=== PATIENT | male | born 1955 | race Two or more races ===

== ENCOUNTER 2020-08-21 10:44 | Outpatient (REF) | payer MEDICARE, SELFPAY | END 2020-08-21 10:45 | disposition home or self-care (01) | LOC: HO.LAB 10:44 | PROVIDERS: PCP Internal Medicine; Visit Provider Urology | DX: C61 Malignant neoplasm of prostate (principal); Z12.5 Encounter for screening for malignant neoplasm of prostate | CPT/HCPCS: 84153 ==

== ENCOUNTER 2020-09-15 10:41 | Outpatient (REF) | payer MEDICARE, SELFPAY ==
[2020-09-15 14:17] LABS: MANUAL DIFF FLAG NO
[2020-09-15 14:27] LABS: Basophils Percent Auto 0.8 % (0-2); Eosinophils Absolute Auto 0.1 X10*3/uL (0.0-0.4); Eosinophils Percent Auto 1.9 % (0-4); Hematocrit 43.7 % (42-52); Hemoglobin 14.8 g/dl (14.0-18.0); Imm Gran Abs Auto 0.01 X10*3/uL (0.00-0.03); Imm Gran Pct Auto 0.2 % (0.0-0.4); Lymphocytes Absolute Auto 1.5 X10*3/uL (1.2-4.9); Lymphocytes Percent Auto 29.4 % (20-40); Mean Corpuscular HGB Conc 33.9 g/dl (31.0-36.0); Mean Corpuscular Hemoglobin 30.4 pg (27.0-33.0); Mean Corpuscular Volume 89.7 fL (80-98); Mean Platelet Volume 10.8 fL (9.4-12.4); Monocytes Absolute Auto 0.4 X10*3/uL (0.1-1.2); Neutrophils Absolute Auto 3.1 X10*3/uL (2.0-8.3); Neutrophils Percent Auto 59.7 % (45-73); Platelet Count 236 X10*3/uL (160-400); Red Blood Count 4.87 X10*6/uL (4.60-5.80); Red Cell Distribution Width 11.7 % (11.0-16.0); White Blood Count 5.1 X10*3/uL (4.8-10.8)
[2020-09-15 14:47] LABS: Alanine Aminotransferase 24 U/L (0-40); Albumin Level 4.8 g/dL (3.5-5.0); Alkaline Phosphatase 62 U/L (39-117); Anion Gap 13 (12-20); Aspartate Amino Transferase 24 U/L (5-37); Bilirubin Total 0.9 mg/dL (0.0-1.0); Blood Urea Nitrogen 20 mg/dL (9-16); Calcium 9.3 mg/dL (8.4-10.2); Carbon Dioxide 27 mmol/L (22-29); Chloride 103 mmol/L (96-108); Cholesterol 195 mg/dL; Estimated Glomerular Filt Rate > 60; Glucose Random 94 mg/dL (60-115); HDL Cholesterol 41 mg/dL; LDL Cholesterol Calculated 106 mg/dl; Potassium 4.2 mmol/l (3.3-5.1); Sodium 139 mmol/L (135-145); Total Protein 7.5 g/dL (6.5-8.0); Triglycerides 244 mg/dL
[2020-09-15 15:10] LABS: Prostate Specific Antigen 9.01 ng/mL (<0.05-4.0); Thyroid Stimulating Hormone 2.07 uIU/mL (0.32-4.0)
[2020-09-15 15:27] LABS: Folate > 20.0 ng/mL (> or = 4.0); Vitamin B12 617 pg/mL (200-900)
== END 2020-09-15 10:42 | disposition home or self-care (01) ==
LOC: HO.HMGCLDS 10:41
PROVIDERS: PCP Internal Medicine; Visit Provider Internal Medicine
DX: C61 Malignant neoplasm of prostate (principal); E78.00 Pure hypercholesterolemia, unspecified; I10 Essential (primary) hypertension
CPT/HCPCS: 36415; 80053; 80061; 82607; 82746; 84153; 84443; 85025

== ENCOUNTER 2020-11-08 13:06 | Outpatient (REF) | payer MEDICARE, SELFPAY ==
[2020-11-08 14:38] LABS: PSA,Total (Free>4and<10) 10.65 ng/mL (0.00-4.00)
== END 2020-11-08 13:07 | disposition home or self-care (01) ==
LOC: HO.LAB 13:06
PROVIDERS: PCP Internal Medicine; Visit Provider Urology
DX: Z12.5 Encounter for screening for malignant neoplasm of prostate (principal); C61 Malignant neoplasm of prostate
CPT/HCPCS: 36415; 84153

== ENCOUNTER → 2020-11-10 08:46 | Outpatient (BNVA) | payer MEDICARE, SELFPAY | PROVIDERS: Visit Provider Urology | DX: Z13.89 Encounter for screening for other disorder (principal) | CPT/HCPCS: Q3014 ==

== ENCOUNTER 2020-11-16 09:39 | Outpatient (REF) | payer MEDICARE, SELFPAY ==
--- NOTE | 2020-11-16 10:08 | MR_ITS ---
PELVIC/PROSTATE MRI WITH AND WITHOUT CONTRAST AND RECONSTRUCTIONS: Indication: Malignant neoplasm of prostate Multiple routine MRI sequences through the pelvis were obtained on a 1.5 Airam MRI through the pelvis with specific attention being given to the prostate. Pre-and postcontrast images were evaluated. 7.5 cc of Gadavist intravenous contrast was utilized without incident. Diffusion-weighted imaging with apparent diffusion coefficient calculation and dynamic contrast perfusion imaging were performed. The study was reviewed on a dedicated independent workstation and extensively post processed for multi-parametric mapping and analysis. PIRADS 2.0 Criteria was utilized in reporting. Comparison: No pertinent prior studies were available for comparison Findings: The prostate measures 4.8 x 3.4 x 4.4 cm in size for a volume of 36.5 cc. The transitional zone is heterogeneous. The prostate contour is smooth. Any specific regions of interest that were identified were marked on the [employer] as described below: REGION OF INTEREST ONE: Location: Left mid lateral peripheral zone PI RADS category: 3 Dominant sequence:*Diffusion-weighted imaging T2 weighting (Peripheral Zone): Heterogeneous signal intensity, non-circumscribed, moderate hypointensity measuring up to 1.1 cm maximally. PI-RADS category: 3 *Diffusion/ADC mapping: Focal mildly/moderately hypointense on ADC and isointense/mildly hyperintense on high b-value DWI. PI-RADS category: 3 T1-weighting: Minimal heterogeneous signal change. No discrete mass. PI-RADS category: 1 Perfusion/dynamic contrast enhancement: No early enhancement or diffuse enhancement not corresponding to focal finding or focal enhancement corresponding to the lesion demonstrating features of BPH on T2 weighted images. PI-RADS category: Negative Mild heterogeneous signal seen elsewhere in the gland but no other discrete lesions were marked. EXTRAPROSTATIC: Seminal vesicles: Within normal limits and symmetric. Prostate capsule: The capsule appears grossly intact. No suspicious signal in the region of the neurovascular bundle. No disruption to the fascial planes between the prostate and rectum. Regional assessment: There are no enlarged pelvic lymph nodes identified. Marrow/osseous structures: No suspicious marrow signal abnormality. Bladder: Decompressed but otherwise unremarkable. Pelvis: No suspicious pelvic mass or collection. No free pelvic fluid. MR/MR pelvis wo/w con IMPRESSION: There is a small subtle region of mildly decreased T2 signal and mild restricted diffusion within the left mid lateral peripheral zone as described above. This low suspicious abnormal region of interest was marked on the [employer] senior sql [employer]. No evidence for extraprostatic extension. No regional metastases were identified on the study. Overall PI-RADS category: 3 PI-RADS category 1 = clinically significant disease is highly unlikely to be present PI-RADS category 2 = clinically significant cancer unlikely to be present PI-RADS category 3 = clinically significant cancer is equivocal (low suspicion) PI-RADS category 4 = clinically significant cancer is likely to be present (moderate suspicion) PI-RADS category 5 = clinically significant cancer is highly likely to be present (high suspicion)
[2020-11-16 10:25] LABS: Blood Urea Nitrogen 19 mg/dL (9-16); Estimated Glomerular Filt Rate > 60
== END 2020-11-16 09:40 | disposition home or self-care (01) ==
LOC: HO.MRI 09:39
PROVIDERS: Visit Provider Urology
DX: C61 Malignant neoplasm of prostate (principal)
CPT/HCPCS: 36415; 72197; 82565; 84520; A9585

== ENCOUNTER 2021-01-14 09:39 | Outpatient (REF) | payer MEDICARE, SELFPAY ==
[2021-01-14 11:52] LABS: Blood Urea Nitrogen 18 mg/dL (9-16); Estimated Glomerular Filt Rate > 60
== END 2021-01-14 09:40 | disposition home or self-care (01) ==
LOC: HO.HMGCLDS 09:39
PROVIDERS: PCP Internal Medicine; Visit Provider Urology
DX: C61 Malignant neoplasm of prostate (principal)
CPT/HCPCS: 36415; 82565; 84520

== ENCOUNTER → 2021-01-28 14:44 | Outpatient (BNVA) | payer MEDICARE, OTHER, SELFPAY | PROVIDERS: Visit Provider Urology | DX: N40.1 Benign prostatic hyperplasia with lower urinary tract symptoms (principal); N13.8 Other obstructive and reflux uropathy; C61 Malignant neoplasm of prostate | CPT/HCPCS: 99212 ==

== ENCOUNTER 2021-05-26 09:34 | Outpatient (REF) | payer MEDICARE, OTHER, SELFPAY ==
[2021-05-26 10:42] LABS: PSA,Total (Free>4and<10) 3.66 ng/mL (0.00-4.00)
== END 2021-05-26 09:35 | disposition home or self-care (01) ==
LOC: HO.LAB 09:34
PROVIDERS: PCP Internal Medicine; Visit Provider Urology
DX: Z12.5 Encounter for screening for malignant neoplasm of prostate (principal); C61 Malignant neoplasm of prostate
CPT/HCPCS: 36415; 84153

== ENCOUNTER → 2021-06-02 15:07 | Outpatient (BNVA) | payer MEDICARE, OTHER, SELFPAY | PROVIDERS: PCP Internal Medicine; Visit Provider Urology | CPT/HCPCS: Q3014 ==

== ENCOUNTER 2021-07-26 11:53 | Emergency (ER) | payer MEDICARE, SELFPAY ==
--- NOTE | ~2021-07-26 | XR_ITS ---
EXAMINATION: LEFT CLAVICLE AND LEFT SHOULDER. CLINICAL INFORMATION: Left shoulder injury. COMPARISON: None TECHNIQUE: Left clavicle 2 views. Left shoulder 4 views. FINDINGS: Left clavicle: There is no visible fracture or bony abnormality seen. The AC joint is intact. Left shoulder: There is no visible acute fracture, dislocation or subluxation. No bony erosive changes. The soft tissues are normal. XR/XR shoulder LT min 2V IMPRESSION: Unremarkable left shoulder and left clavicle exam.
--- NOTE | ~2021-07-26 | XR_ITS ---
EXAMINATION: LEFT CLAVICLE AND LEFT SHOULDER. CLINICAL INFORMATION: Left shoulder injury. COMPARISON: None TECHNIQUE: Left clavicle 2 views. Left shoulder 4 views. FINDINGS: Left clavicle: There is no visible fracture or bony abnormality seen. The AC joint is intact. Left shoulder: There is no visible acute fracture, dislocation or subluxation. No bony erosive changes. The soft tissues are normal. XR/XR clavicle LT IMPRESSION: Unremarkable left shoulder and left clavicle exam.
[2021-07-26 12:51] VITALS: BP 179/99; PULSE 100; RESP 18; TEMP 36.7; O2SAT 95; BMI 25.8
--- NOTE | 2021-07-26 13:45 | ED.EXTPRO ---
HPI - Extremity Problem General Chief complaint: Extremity Injury, Upper Stated complaint: lt shoulder pain Time Seen by Provider: 07/26/21 13:41 Source: patient Mode of arrival: ambulatory Limitations: no limitations History of Present Illness HPI Narrative: 66-year-old male here with complaints of left shoulder pain for 2 weeks. 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 No previous injury to the shoulder. No radiation of pain. No numbness, tingling, fevers, chills or redness. Using Tylenol home with continued pain Related Data Previous Rx's Medication Instructions Recorded amlodipine 5 mg tablet 5 mg PO DAILY #90 cap 05/20/21 cholecalciferol (vitamin D3) 25 25 mcg PO DAILY 90 Days #90 cap 05/20/21 mcg (1,000 unit) capsule cyanocobalamin (vitamin B-12) 1,000 mcg PO DAILY #90 cap 05/20/21 1,000 mcg capsule fenofibrate 160 mg tablet 160 mg PO DAILY #90 tab 05/20/21 finasteride 5 mg tablet 5 mg PO DAILY 90 Days #90 tab 05/20/21 folic acid 1 mg tablet 1 mg PO DAILY #90 tab 05/20/21 lisinopril 40 mg tablet 40 mg PO DAILY 90 Days #90 tab 05/20/21 omega-3 fatty acids-fish oil 300 1 cap PO DAILY 90 Days #90 cap 06/13/21 mg-1,000 mg capsule erythromycin 5 mg/gram (0.5 %) eye 0.5 inch OPHTHALMIC (EYE) TID #1 g 07/14/21 ointment cyclobenzaprine 10 mg tablet 10 mg PO TID PRN #10 tab 07/26/21 lidocaine 5 % topical patch 1 patch TOPICAL DAILY #15 ea 07/26/21 (Lidoderm) naproxen 500 mg tablet 500 mg PO BID PRN #20 tab 07/26/21 Allergies Allergy/AdvReac Type Severity Reaction Status Date / Time No Known Allergies Allergy Verified 07/26/21 12:51 Review of Systems Review of Systems: Yes all other systems are reviewed and are negative Constitutional: Constitutional: Reports no additional constitutional complaints, Denies body ache(s), Denies chills, Denies fever(s), Denies headache(s) and Denies weakness Eyes: Eyes: Reports no additional eye complaints and Denies change in vision ENT: Reports system reviewed and no additional complaints, except as documented, Denies dizziness, Denies headache(s), Denies nasal congestion, Denies nasal discharge and Denies neck pain Cardiovascular: Cardiovascular: Reports no additional cardiovascular complaints, Denies chest pain, Denies leg edema and Denies dyspnea Respiratory: Respiratory: Reports no additional respiratory complaints, Denies cough and Denies dyspnea Gastrointestinal: Gastrointestinal: Reports no additional gastrointestinal complaints, Denies abdominal pain, Denies diarrhea, Denies nausea and Denies vomiting Genitourinary: Genitourinary: Denies urinary incontinence Musculoskeletal: Musculoskeletal: Reports no additional musculoskeletal complaints, Denies back pain, Reports arthralgias, Denies joint swelling, Reports limited range of motion, Denies neck pain, Denies numbness and Denies tingling Integumentary/Breasts: Skin/Breast: Reports system reviewed and no additional complaints, except as docu and Denies rash Neurologic: Reports system reviewed and no additional complaints, except as documented, Denies Abnormal speech present, Denies dizziness, Denies headache(s), Denies numbness, Denies tingling and Denies weakness PMF Past Medical History Attestation statement: The following information was validated with the patient. Source: old records reviewed and nursing notes reviewed Medical History Alcohol abuse Anxiety Hypercholesterolemia Hypertension Impaired glucose tolerance Insomnia Overweight (BMI 25.0-29.9) Prostate cancer Vitamin B12 deficiency Vitamin D deficiency Surgical History History of prostate biopsy Family History Family History Father No problems noted. 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 Physical Exam Vital Signs: Vital Signs: Last Vital Signs Temp 98.1 F 07/26/21 12:51 Pulse 100 07/26/21 12:51 Resp 18 07/26/21 12:51 BP 179/99 H 07/26/21 12:51 Pulse Ox 95 07/26/21 12:51 Body Mass Index 25.8 Const: General: cooperative, healthy appearing, comfortable and no acute distress Orientation/consciousness: patient oriented x3 Limitations: no limitations HENMT: Head: Yes normal to inspection Ears: hearing grossly normal bilaterally General nose exam: Normal external nose present Face and sinus: Yes normal facial exam Mouth: Normal oral and palatal mucosa present Throat: Yes posterior oropharynx normal Eyes: General: appearance normal, both eyes and all related structures Pupils: Equal, round and reactive pupils present Neck: Neck: Yes normal visual inspection Chest: Chest palpation & inspection: normal inspection of the chest Resp: Effort & Inspection: normal respiratory effort Auscultation: clear to auscultation bilaterally Cardio: Rate: regular rate Rhythm: regular rhythm Peripheral pulses: Peripheral pulses 2+ throughout GI: Inspection: Yes normal to inspection Palpation (GI): Soft to palpation and nontender Auscultation: normal bowel sounds Back/Spine/Pelvis: Thoracic/Lumbar Spine: thoracic and lumbar spine normal to inspection Skin: General skin exam: no rashes or lesions noted Neuro: General: patient oriented x3, no focal motor deficits and normal sensation to monofilament Cranial nerves: Yes Equal, round and reactive pupils present Cognition (Neuro): normal cognition Speech: No Abnormal speech present Gait exam (Neuro): Normal gait present Motor exam (neuro): 5/5 motor strength present throughout Extrem: Other: Tenderness over the proximal humerus on the left arm. Pain is worsened with abduction. And movement of the head to the right. Palpable muscle spasm over the trapezius General: Yes normal to inspection Course Course Course Narrative: 66-year-old male with left shoulder pain after lifting something heavy 2 weeks ago. Will check x-rays 1430-x-ray show no bony abnormality. Likely strain. Reviewed worrisome signs and symptoms of when to return to the emergency department. Comfortable discharge home. MDM - Extremity (Nontraumatic) Medical Records Attestation: I reviewed the patient's medical records. Lab Data Attestation: I reviewed the patient's lab results. Imaging Data left shoulder/clavicle xray: Attestation: I personally reviewed and interpreted this imaging study as follows: Radiologist's impression: FINDINGS: Left clavicle: There is no visible fracture or bony abnormality seen. The AC joint is intact. Left shoulder: There is no visible acute fracture, dislocation or subluxation. No bony erosive changes. The soft tissues are normal. XR/XR shoulder LT min 2V IMPRESSION: Unremarkable left shoulder and left clavicle exam.? Discharge Plan Discharge Clinical Impression: Left shoulder strain Patient Disposition: Home, Self-Care Instructions: Muscle Strain (ED), Rotator Cuff Injury Exercises (DC) Additional Instructions: Heat to the area Gentle stretching Follow-up with your PCP as discussed Prescriptions: New cyclobenzaprine 10 mg tablet 10 mg PO TID PRN (Reason: muscle spasm) Qty: 10 RF: 0 naproxen 500 mg tablet 500 mg PO BID PRN (Reason: pain) Qty: 20 RF: 0 lidocaine [Lidoderm] 5 % adhesive patch,medicated 1 patch topical DAILY Qty: 15 RF: 0 No Action amlodipine 5 mg tablet 5 mg PO DAILY Qty: 90 RF: 2 cholecalciferol (vitamin D3) 25 mcg (1,000 unit) capsule 25 mcg PO DAILY 90 Days Qty: 90 RF: 1 cyanocobalamin (vitamin B-12) 1,000 mcg capsule 1,000 mcg PO DAILY Qty: 90 RF: 3 fenofibrate 160 mg tablet 160 mg PO DAILY Qty: 90 RF: 3 finasteride 5 mg tablet 5 mg PO DAILY 90 Days Qty: 90 RF: 1 folic acid 1 mg tablet 1 mg PO DAILY Qty: 90 RF: 1 lisinopril 40 mg tablet 40 mg PO DAILY 90 Days Qty: 90 RF: 1 omega-3 fatty acids-fish oil 300-1,000 mg capsule 1 cap PO DAILY 90 Days Qty: 90 RF: 3 erythromycin 5 mg/gram (0.5 %) ointment 0.5 inch ophthalmic (eye) TID Qty: 1 RF: 0 Referrals: Po,Radha Amos MD [Primary Care Provider] - 2 days Interventions: ED Discharge Assessment Last Done: 07/26/21 14:37 Discharge Date/Time: 07/26/21 14:38 Print Language: Irish
== END 2021-07-26 14:38 | disposition home or self-care (01) ==
PROVIDERS: Emergency Provider Emergency Medicine; PCP Internal Medicine
DX: S46.912A Strain of unspecified muscle, fascia and tendon at shoulder and upper arm level, left arm, initial encounter (principal); M25.512 Pain in left shoulder; X50.0XXA Overexertion from strenuous movement or load, initial encounter; X50.9XXA Other and unspecified overexertion or strenuous movements or postures, initial encounter; Y93.9 Activity, unspecified; Y92.9 Unspecified place or not applicable; Y99.9 Unspecified external cause status; Z79.899 Other long term (current) drug therapy
CPT/HCPCS: 73000; 73030; 99283

== ENCOUNTER 2021-08-31 09:52 | Outpatient (REF) | payer MEDICARE, OTHER, SELFPAY ==
[2021-08-31 10:15] LABS: MANUAL DIFF FLAG NO
[2021-08-31 10:23] LABS: Basophils Absolute Auto 0.1 X10*3/uL (0.0-0.2); Basophils Percent Auto 0.9 % (0-2); Eosinophils Absolute Auto 0.2 X10*3/uL (0.0-0.4); Eosinophils Percent Auto 2.9 % (0-4); Hematocrit 42.6 % (42.0-52.0); Hemoglobin 14.4 g/dl (14.0-18.0); Imm Gran Abs Auto 0.02 X10*3/uL (0.00-0.03); Imm Gran Pct Auto 0.4 % (0.0-0.4); Lymphocytes Absolute Auto 1.4 X10*3/uL (1.2-4.9); Lymphocytes Percent Auto 25.7 % (20-40); Mean Corpuscular HGB Conc 33.8 g/dl (31.0-36.0); Mean Corpuscular Hemoglobin 29.8 pg (27.0-33.0); Mean Corpuscular Volume 88.2 fL (80.0-98.0); Mean Platelet Volume 10.1 fL (9.4-12.4); Monocytes Absolute Auto 0.4 X10*3/uL (0.1-1.2); Neutrophils Absolute Auto 3.4 x10*3/uL (2.0-8.3); Neutrophils Percent Auto 62.1 % (45-73); Platelet Count 249 X10*3/uL (160-400); Red Blood Count 4.83 X10*6/uL (4.60-5.80); Red Cell Distribution Width 11.8 % (11.0-16.0); White Blood Count 5.5 X10*3/uL (4.8-10.8)
[2021-08-31 10:52] LABS: Alanine Aminotransferase 21 U/L (0-40); Albumin Level 4.5 g/dL (3.5-5.0); Alkaline Phosphatase 67 U/L (39-117); Anion Gap 12 (12-20); Aspartate Amino Transferase 18 U/L (5-37); Bilirubin Total 0.7 mg/dL (0.0-1.0); Blood Urea Nitrogen 14 mg/dL (9-16); Calcium 9.6 mg/dL (8.4-10.2); Carbon Dioxide 27 mmol/L (22-29); Chloride 105 mmol/L (96-108); Cholesterol 176 mg/dL; Estimated Glomerular Filt Rate > 60; Glucose Random 105 mg/dL (60-115); HDL Cholesterol 37 mg/dL; LDL Cholesterol Calculated 112 mg/dl; Potassium 4.2 mmol/L (3.3-5.1); Sodium 140 mmol/L (135-145); Triglycerides 137 mg/dL
[2021-08-31 11:13] LABS: Free T4 (Free Thyroxine) 0.93 ng/dL (0.71-1.85); Prostate Specific Antigen Scr 3.01 ng/mL (<0.05-4.0); Thyroid Stimulating Hormone 1.71 uIU/mL (0.32-4.0)
[2021-08-31 11:50] LABS: Estimated Average Glucose 111 mg/dL; Hemoglobin A1c % 5.5 %
[2021-08-31 12:09] LABS: Folate > 20.0 ng/mL (> or = 4.0); Vitamin B12 664 pg/mL (200-900)
== END 2021-08-31 09:53 | disposition home or self-care (01) ==
LOC: HO.LAB 09:52
PROVIDERS: PCP Internal Medicine; Visit Provider Internal Medicine
DX: E78.00 Pure hypercholesterolemia, unspecified (principal); E53.8 Deficiency of other specified B group vitamins; I10 Essential (primary) hypertension; R73.02 Impaired glucose tolerance (oral)
CPT/HCPCS: 36415; 80053; 80061; 82607; 82746; 83036; 84153; 84439; 84443; 85025

== ENCOUNTER → 2021-09-13 13:55 | Outpatient (BNVA) | payer MEDICARE, OTHER, SELFPAY | PROVIDERS: PCP Internal Medicine; Visit Provider Physician Assistant | DX: M54.12 Radiculopathy, cervical region (principal); I10 Essential (primary) hypertension; E78.00 Pure hypercholesterolemia, unspecified; E53.8 Deficiency of other specified B group vitamins; E55.9 Vitamin D deficiency, unspecified; Z83.3 Family history of diabetes mellitus | CPT/HCPCS: 99202 ==

== ENCOUNTER 2021-09-28 10:17 | Outpatient (REF) | payer MEDICARE, OTHER, SELFPAY ==
[2021-09-28 11:27] LABS: Prostate Specific Antigen 2.99 ng/mL (<0.05-4.0)
== END 2021-09-28 10:18 | disposition home or self-care (01) ==
LOC: HO.LAB 10:17
PROVIDERS: PCP Internal Medicine; Visit Provider Urology
DX: Z12.5 Encounter for screening for malignant neoplasm of prostate (principal); C61 Malignant neoplasm of prostate
CPT/HCPCS: 36415; 84153

== ENCOUNTER → 2021-10-04 12:25 | Outpatient (BNVA) | payer MEDICARE, OTHER, SELFPAY | PROVIDERS: PCP Internal Medicine; Visit Provider Urology | DX: N40.1 Benign prostatic hyperplasia with lower urinary tract symptoms (principal); N13.8 Other obstructive and reflux uropathy; C61 Malignant neoplasm of prostate | CPT/HCPCS: Q3014 ==

== ENCOUNTER 2022-02-04 09:40 | Outpatient (REF) | payer MEDICARE, OTHER, SELFPAY ==
[2022-02-04 10:41] LABS: Prostate Specific Antigen 3.83 ng/mL (<0.05-4.0)
== END 2022-02-04 09:41 | disposition home or self-care (01) ==
LOC: HO.LAB 09:40
PROVIDERS: PCP Internal Medicine; Visit Provider Urology
DX: Z12.5 Encounter for screening for malignant neoplasm of prostate (principal); C61 Malignant neoplasm of prostate
CPT/HCPCS: 36415; 84153

== ENCOUNTER → 2022-02-15 13:05 | Outpatient (BNVA) | payer MEDICARE, OTHER, SELFPAY | PROVIDERS: PCP Internal Medicine; Visit Provider Urology | DX: C61 Malignant neoplasm of prostate (principal) | CPT/HCPCS: Q3014 ==

== ENCOUNTER → 2022-02-24 09:25 | Outpatient (REF) | payer MEDICARE, OTHER, SELFPAY ==
--- NOTE | 2022-02-24 09:29 | ECG_ITS ---
Test Reason : Z01.818 Blood Pressure : / mmHG Vent. Rate : 072 BPM Atrial Rate : 072 BPM P-R Int : 178 ms QRS Dur : 148 ms QT Int : 396 ms P-R-T Axes : 061 054 009 degrees QTc Int : 433 ms Normal sinus rhythm Right bundle branch block Abnormal ECG When compared with ECG of 02-NOV-2001 09:52, Premature ventricular complexes are no longer Present Right bundle branch block is now Present Referred By: Radha Stoll Electronically Signed By:ACACIA HUGHES MD
[2022-02-24 10:48] LABS: Anion Gap 11 (12-20); Blood Urea Nitrogen 16 mg/dL (9-16); Calcium 9.7 mg/dL (8.4-10.2); Carbon Dioxide 26 mmol/L (22-29); Chloride 105 mmol/L (96-108); Estimated Glomerular Filt Rate > 60; Glucose Random 103 mg/dL (60-115); Potassium 4.2 mmol/L (3.3-5.1); Sodium 138 mmol/L (135-145)
== END ==
LOC: HO.CARD 09:25
PROVIDERS: PCP Internal Medicine; Visit Provider Internal Medicine
DX: Z01.818 Encounter for other preprocedural examination (principal)
CPT/HCPCS: 36415; 80048; 93005

== ENCOUNTER 2022-03-22 10:44 | Outpatient (REF) | payer MEDICARE, OTHER, SELFPAY ==
[2022-03-22 11:13] LABS: COVID-19 Test Positive (Negative)
== END 2022-03-22 10:45 | disposition home or self-care (01) ==
LOC: HO.LAB 10:44
PROVIDERS: Visit Provider Internal Medicine
DX: Z20.822 Contact with and (suspected) exposure to COVID-19 (principal)
CPT/HCPCS: 87635; C9803

== ENCOUNTER 2022-06-09 10:51 | Outpatient (REF) | payer MEDICARE, OTHER, SELFPAY ==
[2022-06-09 12:58] LABS: PSA,Total (Free>4and<10) 3.67 ng/mL (0.00-4.00)
== END 2022-06-09 10:52 | disposition home or self-care (01) ==
LOC: HO.LAB 10:51
PROVIDERS: PCP Internal Medicine; Visit Provider Urology
DX: Z13.89 Encounter for screening for other disorder (principal)
CPT/HCPCS: 36415; 84153

== ENCOUNTER → 2022-06-20 12:55 | Outpatient (BNVA) | payer MEDICARE, OTHER, SELFPAY | PROVIDERS: Visit Provider Urology | DX: N40.1 Benign prostatic hyperplasia with lower urinary tract symptoms (principal); N13.8 Other obstructive and reflux uropathy; C61 Malignant neoplasm of prostate | CPT/HCPCS: 51798; 99212 ==

== ENCOUNTER 2022-08-17 09:24 | Observation (INO) | payer MEDICARE, SELFPAY ==
--- NOTE | ~2022-08-17 | CT_ITS ---
EXAMINATION: CT ABDOMEN AND PELVIS WITHOUT CONTRAST CLINICAL INFORMATION: Right-sided flank pain COMPARISON: None TECHNIQUE: Multidetector volumetric imaging was performed from the superior aspect of the liver through the pubic symphysis. Sagittal and coronal reformatted images were obtained on the technologist's workstation. This CT examination was performed using dose optimization techniques as appropriate, variously including the following: *Automated exposure control *Adjustment of mA and/or kV according to patient size (this includes techniques or standardized protocols for targeted exams where dose is matched to indication/reason for exam; i.e. extremities or head) *Use of iterative reconstruction technique DLP: 402 mGy-cm FINDINGS: LUNG BASES: The visualized lung bases are unremarkable. LIVER, GALLBLADDER, AND BILIARY TREE: The liver is normal in size, shape, and attenuation. No focal hepatic lesion or biliary ductal dilatation is present. The gallbladder is unremarkable with no evidence of radiopaque gallstones, gallbladder wall thickening, or obvious pericholecystic inflammatory changes. PANCREAS: Unremarkable. SPLEEN: Unremarkable. ADRENAL GLANDS: Unremarkable. KIDNEYS AND URETERS: The kidneys are normal in size, shape, and attenuation. No hydronephrosis, hydroureter, or calculi seen. No perinephric stranding. BLADDER: Unremarkable. GASTROINTESTINAL TRACT: The stomach is unremarkable. Normal caliber of the small bowel. There is no obstruction. The appendix is abnormal. The appendix is dilated measuring 1.2 cm. Fluid-filled appearance. No significant inflammation of the fat. The remainder of the colon is unremarkable. No wall thickening. No free air or free fluid. ABDOMINAL WALL: No significant hernia is appreciated. LYMPH NODES: Normal. VASCULAR: Normal caliber aorta with mild atherosclerotic calcification. PELVIC VISCERA: The prostate and seminal vesicles are unremarkable. OSSEOUS STRUCTURES: No acute or suspicious osseous abnormality. Mild degenerative change throughout the spine. CT/CT abdomen pelvis wo IV con IMPRESSION: 1. Abnormal appearance of the appendix. The appendix is dilated and fluid-filled. No significant inflammation of the adjacent fat. This could represent early appendicitis. 2. No hydronephrosis or nephrolithiasis. Fleischner guidelines were followed.
--- NOTE | ~2022-08-17 | XR_ITS ---
EXAMINATION: XR CHEST CLINICAL INFORMATION: Back pain COMPARISON: 09/26/2010 TECHNIQUE: 2 views of the chest were obtained. FINDINGS: The lungs are well expanded. There is no focal consolidation, edema, or effusion. No pneumothorax. The cardiomediastinal silhouette is within normal limits. No acute osseous abnormality. XR/XR chest 2V IMPRESSION: Clear lungs.
[2022-08-17 10:09] VITALS: BP 172/85; PULSE 72; RESP 18; TEMP 36.9; O2SAT 98; BMI 26.6
--- NOTE | 2022-08-17 10:41 | ED.GENADULT ---
HPI - General Adult General Chief complaint: Back Pain/Injury Stated complaint: Low Abd Pain Time Seen by Provider: 08/17/22 10:41 Source: patient, family () and critical care educator Mode of arrival: ambulatory Limitations: language barrier History of Present Illness HPI narrative: Patient is a 67 year old assigned male at with a history of HTN presenting to the emergency department today with right sided abdominal pain and back pain. Patient states that he woke up this morning and had sharp back pain that radiated into his abdomen and stayed there. Patient denies any dizziness, lightheadedness, nausea, vomiting, fever, chills, blurry vision, double vision, loss of vision, chest pain, difficulty breathing, shortness of breath, back pain, night sweats, pain with urination, increased urinary frequency, increased urinary urgency, blood in his urine or stool, syncope or a near syncopal episode, recent trauma or falls, bowel incontinence, bladder incontinence, bowel retention, bladder retention, or any other complaints at this time. Onset (ago): hour(s) Location: back and abdomen Severity: moderate Severity scale (1-10): 4 Pain Consistency: constant Relieving factors: none Exacerbating factors: none Associated symptoms: denies other symptoms Treatments prior to arrival: none Related Data Home Medications Medication Instructions Recorded Confirmed cyanocobalamin (vitamin B-12) 1,000 mcg PO DAILY 10/04/21 06/20/22 1,000 mcg tablet ketorolac 0.5 % eye drops 0 drp ophthalmic (eye) 02/15/22 06/20/22 Previous Rx's Medication Instructions Recorded fenofibrate 160 mg tablet 160 mg PO DAILY #90 tabs 05/20/21 omega-3 fatty acids-fish oil 300 1 cap PO DAILY 90 days #90 caps 06/13/21 mg-1,000 mg capsule lidocaine 5 % topical patch 1 patch topical DAILY #15 ea 07/26/21 (Lidoderm) cholecalciferol (vitamin D3) 25 25 mcg PO DAILY 90 days #90 caps 01/05/22 mcg (1,000 unit) capsule folic acid 1 mg tablet 1 mg PO DAILY #90 tabs 01/05/22 lisinopril 40 mg tablet 40 mg PO DAILY 90 days #90 tabs 01/05/22 amlodipine 5 mg tablet 5 mg PO DAILY #90 caps 03/27/22 finasteride 5 mg tablet 5 mg PO DAILY 90 days #90 tabs 08/10/22 Allergies Allergy/AdvReac Type Severity Reaction Status Date / Time No Known Allergies Allergy Verified 06/20/22 08:16 Review of Systems Constitutional: Constitutional: Reports no additional constitutional complaints, Denies chills, Denies fever(s) and Denies night sweats Eyes: Eyes: Reports no additional eye complaints, Denies blurry vision, Denies change in vision, Denies diplopia, Denies eye discharge, Denies loss of vision and Denies eye pain ENT: Denies dizziness Cardiovascular: Cardiovascular: Reports no additional cardiovascular complaints, Denies chest pain, Denies lightheadedness, Denies Loss of Consciousness and Denies dyspnea Respiratory: Respiratory: Reports no additional respiratory complaints and Denies dyspnea Gastrointestinal: Gastrointestinal: Reports no additional gastrointestinal complaints, Reports abdominal pain, Denies melena, Denies hematochezia, Denies change in bowel habits and Denies change in stool character Genitourinary: Genitourinary: Reports no additional male genitourinary complaints, Denies hematuria, Denies oliguria, Denies difficulty urinating, Denies dysuria, Denies urinary frequency, Denies urinary hesitancy, Denies urinary incontinence and Denies urinary urgency Musculoskeletal: Musculoskeletal: Reports no additional musculoskeletal complaints, Reports back pain, Denies numbness and Denies tingling Neurologic: Denies dizziness, Denies loss of vision, Denies numbness and Denies tingling Psychiatric: Psychiatric: Reports no additional psychiatric complaints Endocrine: Endocrine: Reports no additional endocrine complaints Hematologic/Lymphatic: Hematologic/Lymphatic: Reports no additional hematologic/lymphatic complaints Allergic/Immunologic: Allergic/Immunologic: Reports no additional allergic/immunologic complaints [facility] Past Medical History Attestation statement: The following information was validated with the patient. Source: old records reviewed Medical History Alcohol abuse Anxiety Hypercholesterolemia Hypertension Impaired glucose tolerance Insomnia Overweight (BMI 25.0-29.9) Prostate cancer Vitamin B12 deficiency Vitamin D deficiency Surgical History History of prostate biopsy Family History Family History Father No problems noted. 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 Cognitive needs: No Hearing needs: No Vision needs: No Physical Exam ED Vital Signs: Vital Signs - 24 hr 08/17/22 10:09 08/17/22 14:53 Temperature 98.4 F 98.4 F Pulse Rate 72 61 Respiratory Rate 18 16 Blood Pressure 172/85 H 161/79 H Pulse Oximetry 98 97 Oxygen Delivery Method Room Air Room Air BMI result Body Mass Index 26.6 Const General: cooperative, no acute distress, alert and awake Nutritional Appearance: well nourished Orientation/consciousness: patient oriented x3 Limitations: no limitations HENMT Head: Yes normal to inspection and Yes atraumatic Ears: hearing grossly normal bilaterally and external ears normal General nose exam: Normal external nose present, no nasal discharge noted and no epistaxis Face and sinus: Yes normal facial exam, No abrasion and No laceration Mouth: Normal oral and palatal mucosa present, no drooling and no muffled voice Eyes General: appearance normal, both eyes and all related structures Periorbital: periorbital findings normal Eyelids: Yes eyelids normal Conjunctivae: conjunctivae normal Pupils: Equal, round and reactive pupils present EOM: EOMs intact bilaterally Neck Neck: Yes normal visual inspection, Yes full ROM and Yes no lymphadenopathy Chest Chest palpation & inspection: normal inspection of the chest Resp Effort & Inspection: normal respiratory effort and able to speak in complete sentences Auscultation: clear to auscultation bilaterally Cardio Rate: regular rate Rhythm: regular rhythm GI Inspection: Yes normal to inspection Palpation (GI): Soft to palpation, not firm, Tenderness to palpation present (GI) in the RLQ, no guarding and not rigid Neuro General: patient oriented x3 and moves all extremities Cranial nerves: Yes Equal, round and reactive pupils present Cognition (Neuro): normal cognition Motor exam (neuro): 5/5 motor strength present throughout Sensory Exam: Normal double simultaneous stimulation for sensation Coordination: [id number] test normal Extrem General: Yes normal to inspection, Yes full ROM and Yes capillary refill normal Psych Appearance: grossly normal Mental Status: mental status grossly normal Affect: normal affect Attitude: cooperative Thought process: Normal thought process present Thought content: Normal thought content present Insight: Good insight present (Psych) Medical Decision Making MDM Narrative Medical decision making narrative: Patient is a 67 year old assigned male at with a history of HTN presenting to the emergency department today with right lower quadrant abdominal pain. Patient's physical exam showed RLQ abdominal pain. Patient's blood work showed an increase in neurophil % but was otherwise unremarkable. Patient's abdominal CT showed an early appendicitis. I explained my physical exam findings as well as all test results to the patient and the patient's . I answered all questions asked by the patient and the patient's . I spoke to the surgeon marketing professional who recommended the patient get a dose of IV ABX and remain NPO for probable surgery this evening. Patient and the patient's verbalized agreement and understanding with this treatment plan and surgical admission. Medical Records Medical records reviewed: Yes I reviewed the patient's medical records. Lab Data Lab results reviewed: Yes I reviewed the patient's lab results. Result diagrams: 08/17/22 11:38 08/17/22 11:38 Labs: Lab Results 08/17/22 08/17/22 08/17/22 Range/Units 11:38 11:38 11:38 WBC 6.1 (4.8-10.8) X10*3/uL RBC 5.07 (4.60-5.80) X10*6/uL Hgb 15.2 (14.0-18.0) g/dl Hct 44.8 (42.0-52.0) % MCV 88.4 (80.0-98.0) fL MCH 30.0 (27.0-33.0) pg MCHC 33.9 (31.0-36.0) g/dl RDW 11.8 (11.0-16.0) % Plt Count 215 (160-400) X10*3/uL MPV 9.4 (9.4-12.4) fL Immature Gran % (Auto) 0.3 (0.0-0.4) % Neut % (Auto) 74.9 H (45-73) % Lymph % (Auto) 16.6 L (20-40) % [place] % (Auto) 6.7 (2-11) % Eos % (Auto) 0.7 (0-4) % Baso % (Auto) 0.8 (0-2) % Lymph # (Auto) 1.0 L (1.2-4.9) X10*3/uL [place] # (Auto) 0.4 (0.1-1.2) X10*3/uL Eos # (Auto) 0.0 (0.0-0.4) X10*3/uL Baso # (Auto) 0.1 (0.0-0.2) X10*3/uL Abs Immat Gran (auto) 0.02 (0.00-0.03) X10*3/uL Absolute Neuts (auto) 4.6 (2.0-8.3) x10*3/uL Absolute Nucleated RBC 0.000 (0.0-0.012) X10*3/uL Nucleated RBC % (auto) 0.0 (0.0-0.2) /100WBC Sodium 139 (135-145) mmol/L Potassium 5.0 (3.3-5.1) mmol/L Chloride 103 (96-108) mmol/L Carbon Dioxide 26 (22-29) mmol/L Anion Gap 15 (12-20) BUN 16 (9-16) mg/dL Creatinine 0.84 (0.5-1.4) mg/dL Estim Creat Clear Calc 77.5 Estimated GFR > 60 Random Glucose 102 (60-115) mg/dL Calcium 10.0 (8.4-10.2) mg/dL Magnesium 2.0 (1.6-2.6) mg/dL Total Bilirubin 0.6 (0.0-1.0) mg/dL AST 21 (5-37) U/L ALT 20 (0-40) U/L Alkaline Phosphatase 67 (39-117) U/L Troponin I High Sens < 3.5 (<3.5-35.0) ng/L Total Protein 7.4 (6.5-8.0) g/dL Albumin 4.7 (3.5-5.0) g/dL Urine Color Urine Appearance Urine pH (5.0-9.0) Ur Specific [place] (1.005-1.025) Urine Protein (Neg-Trace) mg/dL Urine Glucose (UA) (Negative) mg/dL Urine Ketones (Negative) mg/dL Urine Blood (Negative) Urine Nitrite (Negative) Ur Leukocyte Esterase (Negative) 08/17/22 Range/Units 15:01 WBC (4.8-10.8) X10*3/uL RBC (4.60-5.80) X10*6/uL Hgb (14.0-18.0) g/dl Hct (42.0-52.0) % MCV (80.0-98.0) fL MCH (27.0-33.0) pg MCHC (31.0-36.0) g/dl RDW (11.0-16.0) % Plt Count (160-400) X10*3/uL MPV (9.4-12.4) fL Immature Gran % (Auto) (0.0-0.4) % Neut % (Auto) (45-73) % Lymph % (Auto) (20-40) % [place] % (Auto) (2-11) % Eos % (Auto) (0-4) % Baso % (Auto) (0-2) % Lymph # (Auto) (1.2-4.9) X10*3/uL [place] # (Auto) (0.1-1.2) X10*3/uL Eos # (Auto) (0.0-0.4) X10*3/uL Baso # (Auto) (0.0-0.2) X10*3/uL Abs Immat Gran (auto) (0.00-0.03) X10*3/uL Absolute Neuts (auto) (2.0-8.3) x10*3/uL Absolute Nucleated RBC (0.0-0.012) X10*3/uL Nucleated RBC % (auto) (0.0-0.2) /100WBC Sodium (135-145) mmol/L Potassium (3.3-5.1) mmol/L Chloride (96-108) mmol/L Carbon Dioxide (22-29) mmol/L Anion Gap (12-20) BUN (9-16) mg/dL Creatinine (0.5-1.4) mg/dL Estim Creat Clear Calc Estimated GFR Random Glucose (60-115) mg/dL Calcium (8.4-10.2) mg/dL Magnesium (1.6-2.6) mg/dL Total Bilirubin (0.0-1.0) mg/dL AST (5-37) U/L ALT (0-40) U/L Alkaline Phosphatase (39-117) U/L Troponin I High Sens (<3.5-35.0) ng/L Total Protein (6.5-8.0) g/dL Albumin (3.5-5.0) g/dL Urine Color Yellow Urine Appearance Clear Urine pH 8.0 (5.0-9.0) Ur Specific [place] 1.010 (1.005-1.025) Urine Protein Negative (Neg-Trace) mg/dL Urine Glucose (UA) Negative (Negative) mg/dL Urine Ketones Negative (Negative) mg/dL Urine Blood Negative (Negative) Urine Nitrite Negative (Negative) Ur Leukocyte Esterase Negative (Negative) Imaging Data CT scan - abdomen: Attestation: I personally reviewed and interpreted this imaging study as follows: My impression: Possible appendicits. Radiologist's impression: EXAMINATION: CT ABDOMEN AND PELVIS WITHOUT CONTRAST? CLINICAL INFORMATION: Right-sided flank pain? COMPARISON: None? TECHNIQUE: Multidetector volumetric imaging was performed from the superior aspect of the liver through the pubic symphysis. Sagittal and coronal reformatted images were obtained on the technologist's workstation.? This CT examination was performed using dose optimization techniques as appropriate, variously including the following: *Automated exposure control *Adjustment of mA and/or kV according to patient size (this includes techniques or standardized protocols for targeted exams where dose is matched to indication/reason for exam; i.e. extremities or head) *Use of iterative reconstruction technique DLP: 402 mGy-cm FINDINGS: LUNG BASES: The visualized lung bases are unremarkable.? LIVER, GALLBLADDER, AND BILIARY TREE: The liver is normal in size, shape, and attenuation. No focal hepatic lesion or biliary ductal dilatation is present. The gallbladder is unremarkable with no evidence of radiopaque gallstones, gallbladder wall thickening, or obvious pericholecystic inflammatory changes.? PANCREAS: Unremarkable.? SPLEEN: Unremarkable.? ADRENAL GLANDS: Unremarkable.? KIDNEYS AND URETERS: The kidneys are normal in size, shape, and attenuation. No hydronephrosis, hydroureter, or calculi seen. No perinephric stranding. ? BLADDER: Unremarkable.? GASTROINTESTINAL TRACT: The stomach is unremarkable. Normal caliber of the small bowel. There is no obstruction. The appendix is abnormal. The appendix is dilated measuring 1.2 cm. Fluid-filled appearance. No significant inflammation of the fat. The remainder of the colon is unremarkable. No wall thickening. No free air or free fluid.? ABDOMINAL WALL: No significant hernia is appreciated.? LYMPH NODES: Normal. VASCULAR: Normal caliber aorta with mild atherosclerotic calcification. PELVIC VISCERA: The prostate and seminal vesicles are unremarkable.? OSSEOUS STRUCTURES: No acute or suspicious osseous abnormality. Mild degenerative change throughout the spine.? CT/CT abdomen pelvis wo IV con IMPRESSION: 1.? Abnormal appearance of the appendix. The appendix is dilated and fluid-filled. No significant inflammation of the adjacent fat. This could represent early appendicitis. 2.? No hydronephrosis or nephrolithiasis. ? Fleischner guidelines were followed. Dictated By: Wali Reynoso MD Signed By: Electronically signed by Wali Reynoso MD 08/17/22 1138 Chest x-ray: Attestation: I personally reviewed and interpreted this imaging study as follows: My impression: No acute process. Radiologist's impression: EXAMINATION: XR CHEST CLINICAL INFORMATION: Back pain COMPARISON: 09/26/2010 TECHNIQUE: 2 views of the chest were obtained. FINDINGS: The lungs are well expanded. There is no focal consolidation, edema, or effusion. No pneumothorax. The cardiomediastinal silhouette is within normal limits. No acute osseous abnormality. XR/XR chest 2V IMPRESSION: Clear lungs. Dictated By: Wali Reynoso MD Signed By: Electronically signed by Wali Reynoso MD 08/17/22 1120 Discharge Plan Discharge Clinical Impression: Appendicitis Patient Disposition: Still a Patient Prescriptions: No Action fenofibrate 160 mg tablet 160 mg PO DAILY Qty: 90 3RF omega-3 fatty acids-fish oil 300-1,000 mg capsule 1 cap PO DAILY 90 Days Qty: 90 3RF folic acid 1 mg tablet 1 mg PO DAILY Qty: 90 1RF cholecalciferol (vitamin D3) 25 mcg (1,000 unit) capsule 25 mcg PO DAILY 90 Days Qty: 90 1RF lisinopril 40 mg tablet 40 mg PO DAILY 90 Days Qty: 90 1RF amlodipine 5 mg tablet 5 mg PO DAILY Qty: 90 2RF finasteride 5 mg tablet 5 mg PO DAILY 90 Days Qty: 90 2RF lidocaine [Lidoderm] 5 % adhesive patch,medicated 1 patch topical DAILY Qty: 15 0RF Rx Instructions: leave on most painful area for up to 12 hrs cyanocobalamin (vitamin B-12) 1,000 mcg tablet 1,000 mcg PO DAILY ketorolac 0.5 % drops 0 drp ophthalmic (eye)
--- NOTE | 2022-08-17 10:44 | ECG_ITS ---
Test Reason : Back pain Blood Pressure : / mmHG Vent. Rate : 071 BPM Atrial Rate : 071 BPM P-R Int : 178 ms QRS Dur : 148 ms QT Int : 404 ms P-R-T Axes : 042 068 008 degrees QTc Int : 439 ms Normal sinus rhythm Right bundle branch block Abnormal ECG When compared with ECG of 24-FEB-2022 09:33, No significant change was found Referred By: Marlen Oshea Electronically Signed By:RENITA HODGES MD
[2022-08-17 11:44] LABS: MANUAL DIFF FLAG NO
[2022-08-17 11:50] LABS: Basophils Absolute Auto 0.1 X10*3/uL (0.0-0.2); Basophils Percent Auto 0.8 % (0-2); Eosinophils Percent Auto 0.7 % (0-4); Hematocrit 44.8 % (42.0-52.0); Hemoglobin 15.2 g/dl (14.0-18.0); Imm Gran Abs Auto 0.02 X10*3/uL (0.00-0.03); Imm Gran Pct Auto 0.3 % (0.0-0.4); Lymphocytes Percent Auto 16.6 % (20-40); Mean Corpuscular HGB Conc 33.9 g/dl (31.0-36.0); Mean Corpuscular Volume 88.4 fL (80.0-98.0); Mean Platelet Volume 9.4 fL (9.4-12.4); Monocytes Absolute Auto 0.4 X10*3/uL (0.1-1.2); Monocytes Percent Auto 6.7 % (2-11); Neutrophils Absolute Auto 4.6 x10*3/uL (2.0-8.3); Neutrophils Percent Auto 74.9 % (45-73); Platelet Count 215 X10*3/uL (160-400); Red Blood Count 5.07 X10*6/uL (4.60-5.80); Red Cell Distribution Width 11.8 % (11.0-16.0); White Blood Count 6.1 X10*3/uL (4.8-10.8)
[2022-08-17 12:06] LABS: Troponin-I High Sensitivity < 3.5 ng/L (<3.5-35.0)
[2022-08-17 12:11] LABS: Alanine Aminotransferase 20 U/L (0-40); Albumin Level 4.7 g/dL (3.5-5.0); Alkaline Phosphatase 67 U/L (39-117); Anion Gap 15 (12-20); Aspartate Amino Transferase 21 U/L (5-37); Bilirubin Total 0.6 mg/dL (0.0-1.0); Blood Urea Nitrogen 16 mg/dL (9-16); Carbon Dioxide 26 mmol/L (22-29); Chloride 103 mmol/L (96-108); Creatinine Clr Calc Pharmacy 77.5; Estimated Glomerular Filt Rate > 60; Glucose Random 102 mg/dL (60-115); Sodium 139 mmol/L (135-145); Total Protein 7.4 g/dL (6.5-8.0)
[2022-08-17 14:53] VITALS: BP 161/79; PULSE 61; RESP 16; TEMP 36.9; O2SAT 97
[2022-08-17 15:08] LABS: Appearance Urine Clear; Color Urine Yellow; Glucose Urine UA Negative (Negative); Leukocyte Esterase Urine Negative (Negative); Nitrite Urine Negative (Negative); Urine Blood Negative (Negative); Urine Ketones Negative (Negative); Urine Protein Negative (Neg-Trace)
--- NOTE | 2022-08-17 17:17 | PC.NURSE ---
Pt resting comfortably, waiting for surgeon to assess pt
[2022-08-17 18:24] VITALS: BP 148/84; PULSE 66; RESP 18; O2SAT 96
[2022-08-17] MEDS: Piperacillin Sodium/Tazobactam 3.375 GM in 0.9 % Sodium Chloride 50 ML IV (18:27)
[2022-08-17] MEDS: 0.9 % Sodium Chloride 1,000 ML 100 ML IVCONT (19:18)
--- NOTE | 2022-08-17 21:01 | PHA.MEDREC ---
Pharmacy Consult ? Medication Reconciliation Pharmacy has completed the medication reconciliation. sPOKE WITH PATIENT IN ED.
--- NOTE | 2022-08-17 21:43 | PM.HPGS ---
History of Present Illness History of Present Illness Date of Service: 08/17/22 Chief complaint: Low Abd Pain Narrative: Nicolas Diego is a 67 year old male who woke up this morning with back pain radiating to left nd right side. has had back pain before but not sure if this is the same. no issues with nausea or vomiting no trouble or changes in bowel movements. no fever or chills. hre in ER his wbc is normal but CT scan shows distended fluid filled appendix with no inflamatory changes around. currently pt says he is hungry no pain. feels more discomfort in his back Review of Systems Constitutional: Constitutional: Reports as per [facility] Past Medical History Medical History Alcohol abuse Anxiety Hypercholesterolemia Hypertension Impaired glucose tolerance Insomnia Overweight (BMI 25.0-29.9) Prostate cancer Vitamin B12 deficiency Vitamin D deficiency Family History Family History Father No problems noted. 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 Cognitive needs: No Hearing needs: No Vision needs: No Meds Allergies Allergy/AdvReac Type Severity Reaction Status Date / Time No Known Allergies Allergy Verified 06/20/22 08:16 Active Medications: Current Medications Acetaminophen (Acetaminophen 325 Mg Tablet) 650 mg PO Q6H PRN PRN Reason: Pain, Mild (Pain Scale 1-3) Sodium Chloride (Ns) 1,000 mls @ 100 mls/hr IVCONT .Q10H TICO Last Admin: 08/17/22 19:18 Dose: 100 mls/hr Piperacillin Sod/Tazobactam (Sod 3.375 gm/ Sodium Chloride) 50 mls @ 100 mls/hr IV Q6H TICO Morphine Sulfate (Morphine Sulfate 4 Mg/Ml Cartridge) 3 mg IVPUSH Q4H PRN; Protocol PRN Reason: Pain, Severe (Pain Scale 7-10) Ondansetron HCl (Ondansetron Hcl 4 Mg/2 Ml Vial) 4 mg IVPUSH Q8H PRN PRN Reason: Nausea Sodium Chloride (0.9 % Sodium Chloride Flush 3 Ml Syringe) 3 ml IVFLUSH QSHIFT [facility] Home Medications Medication Instructions Recorded Confirmed Last Taken Type cyanocobalamin (vitamin B-12) 1,000 mcg PO DAILY 10/04/21 08/17/22 08/16/22 History 1,000 mcg tablet Physical Exam Vital Signs: Vital Signs: Last Vital Signs Temp 98.4 F 08/17/22 14:53 Pulse 66 08/17/22 18:24 Resp 18 08/17/22 18:24 BP 148/84 H 08/17/22 18:24 Pulse Ox 96 08/17/22 18:24 O2 Del Method 08/17/22 18:24 BMI result Body Mass Index 26.6 Const: General: cooperative, healthy appearing and no acute distress Orientation/consciousness: patient oriented x3 HEENT: Head: Yes normal to inspection Eyes: General: appearance normal, both eyes and all related structures Resp: Effort & Inspection: normal respiratory effort Auscultation: clear to auscultation bilaterally Cardio: Rate: regular rate Rhythm: regular rhythm GI: Other: soft no tenderness to very deep palpation no guarding no rebound active normal sounds no cva tenderness tender to midline back area and off to each side a bit Skin: General skin exam: no rashes or lesions noted Neuro: General: patient oriented x3 Extrem: General: Yes normal to inspection Psych: Appearance: grossly normal Results Results Labs: Short CBC 08/17/22 Range/Units 11:38 WBC 6.1 (4.8-10.8) X10*3/uL Hgb 15.2 (14.0-18.0) g/dl Hct 44.8 (42.0-52.0) % Plt Count 215 (160-400) X10*3/uL BMP 08/17/22 11:38 Sodium 139 Potassium 5.0 Chloride 103 Carbon Dioxide 26 BUN 16 Creatinine 0.84 Calcium 10.0 Liver Function 08/17/22 Range/Units 11:38 Total Bilirubin 0.6 (0.0-1.0) mg/dL AST 21 (5-37) U/L ALT 20 (0-40) U/L Alkaline Phosphatase 67 (39-117) U/L Albumin 4.7 (3.5-5.0) g/dL Urine 08/17/22 Range/Units 15:01 Urine Color Yellow Urine Appearance Clear Urine pH 8.0 (5.0-9.0) Ur Specific [place] 1.010 (1.005-1.025) Urine Protein Negative (Neg-Trace) mg/dL Urine Glucose (UA) Negative (Negative) mg/dL Abdomen CT scan report/results: report reviewed and image reviewed CT scan - pelvis: report reviewed and image reviewed Assessment and Plan (1) Appendicitis: Status: Acute Plan 67 year old male with back pain ? abdo pain - normal wbc no fever or chills, ct scan showing abnormal fluid filled distended appendix a little retrocecal towards the back psoas muscle-? this is why more pain to back. plan to trial conservative antibx treatment and reevaluate in am can feed tonight and then npo after midninght iv zosyn labs and physical exam in am Quality Stroke Does the patient have a stroke diagnosis?: No VTE Prior VTE?: No VTE Risk Level:: Surgical - low VTE Device Contraindication: N/A - Device Ordered VTE Drug Contraindication: N/A - Med Ordered Procedures Date of Service Date of Service: 08/17/22
[2022-08-18 01:09] VITALS: BP 161/90; PULSE 66; RESP 14; O2SAT 94
[2022-08-18] MEDS: Piperacillin Sodium/Tazobactam 3.375 GM in 0.9 % Sodium Chloride 50 ML IV ×2 (01:37→08:36)
[2022-08-18] MEDS: Acetaminophen 325 MG TABLET 650 MG PO (01:37)
[2022-08-18] MEDS: 0.9 % Sodium Chloride 1,000 ML 100 ML IVCONT (05:40)
[2022-08-18 06:28] LABS: MANUAL DIFF FLAG NO
[2022-08-18 06:33] LABS: Basophils Percent Auto 0.7 % (0-2); Eosinophils Absolute Auto 0.1 X10*3/uL (0.0-0.4); Eosinophils Percent Auto 1.2 % (0-4); Hematocrit 40.8 % (42.0-52.0); Imm Gran Abs Auto 0.04 X10*3/uL (0.00-0.03); Imm Gran Pct Auto 0.7 % (0.0-0.4); Lymphocytes Absolute Auto 1.4 X10*3/uL (1.2-4.9); Lymphocytes Percent Auto 24.2 % (20-40); Mean Corpuscular HGB Conc 34.3 g/dl (31.0-36.0); Mean Corpuscular Hemoglobin 30.1 pg (27.0-33.0); Mean Corpuscular Volume 87.7 fL (80.0-98.0); Mean Platelet Volume 9.6 fL (9.4-12.4); Monocytes Absolute Auto 0.5 X10*3/uL (0.1-1.2); Monocytes Percent Auto 8.6 % (2-11); Neutrophils Absolute Auto 3.7 x10*3/uL (2.0-8.3); Neutrophils Percent Auto 64.6 % (45-73); Platelet Count 210 X10*3/uL (160-400); Red Blood Count 4.65 X10*6/uL (4.60-5.80); Red Cell Distribution Width 11.8 % (11.0-16.0); White Blood Count 5.7 X10*3/uL (4.8-10.8)
[2022-08-18 07:50] VITALS: BP 159/75; PULSE 56; RESP 14; O2SAT 98
--- NOTE | 2022-08-18 07:58 | PC.NURSE ---
pt requesting to go home at this time. Dr. Kathy wang connected r/t plan
--- NOTE | 2022-08-18 08:11 | PM.PNGS ---
Subjective Subjective Date of Service: 08/18/22 Interval history: Complains mainly of back pain in the lumbar sacral region. Denies abdominal pain. Reports feeling hungry and denies nausea or vomiting. Physical Exam Vital Signs: Vital Signs: Last Vital Signs Temp 98.4 F 08/17/22 14:53 Pulse 56 08/18/22 07:50 Resp 14 08/18/22 07:50 BP 159/75 H 08/18/22 07:50 Pulse Ox 98 08/18/22 07:50 O2 Del Method 08/18/22 07:50 BMI result Body Mass Index 26.6 Const: General: healthy appearing and comfortable Nutritional Appearance: well nourished Orientation/consciousness: patient oriented x3 Limitations: no limitations Resp: Effort & Inspection: normal respiratory effort GI: Other: Soft, nondistended, nontender, no rebound, guarding, or rigidity. Rectal Exam - Male: Yes deferred Neuro: General: patient oriented x3 Extrem: Other: No edema Objective Data Active Medications Acetaminophen (Acetaminophen 325 Mg Tablet) 650 mg PO Q6H PRN PRN Reason: Pain, Mild (Pain Scale 1-3) Last Admin: 08/18/22 01:37 Dose: 650 mg Documented By: NAV Sodium Chloride (Ns) 1,000 mls @ 100 mls/hr IVCONT .Q10H [facility] Last Admin: 08/18/22 05:40 Dose: 100 mls/hr Documented By: NAV Piperacillin Sod/Tazobactam (Sod 3.375 gm/ Sodium Chloride) 50 mls @ 100 mls/hr IV Q6H [facility] Morphine Sulfate (Morphine Sulfate 4 Mg/Ml Cartridge) 3 mg IVPUSH Q4H PRN; Protocol PRN Reason: Pain, Severe (Pain Scale 7-10) Ondansetron HCl (Ondansetron Hcl 4 Mg/2 Ml Vial) 4 mg IVPUSH Q8H PRN PRN Reason: Nausea Sodium Chloride (0.9 % Sodium Chloride Flush 3 Ml Syringe) 3 ml IVFLUSH QSHIFT [facility] Last Admin: 08/18/22 01:37 Dose: Not Given Documented By: NAV Non-Admin Reason: IV Running Labs CBC & Chem 7: 08/18/22 06:21 08/17/22 11:38 Labs: Laboratory Results - last 24 hr 1108/17/22 08/17/22 11:38 11:38 11:38 MCV 88.4 MCH 30.0 MCHC 33.9 RDW 11.8 Plt Count 215 MPV 9.4 Immature Gran % (Auto) 0.3 Neut % (Auto) 74.9 H Lymph % (Auto) 16.6 L [place] % (Auto) 6.7 Eos % (Auto) 0.7 Baso % (Auto) 0.8 Lymph # (Auto) 1.0 L [place] # (Auto) 0.4 Eos # (Auto) 0.0 Baso # (Auto) 0.1 Abs Immat Gran (auto) 0.02 Absolute Neuts (auto) 4.6 Absolute Nucleated RBC 0.000 Nucleated RBC % (auto) 0.0 Anion Gap 15 Estim Creat Clear Calc 77.5 Estimated GFR > 60 Random Glucose 102 Calcium 10.0 Magnesium 2.0 Total Bilirubin 0.6 AST 21 ALT 20 Alkaline Phosphatase 67 Troponin I High Sens < 3.5 Total Protein 7.4 Albumin 4.7 Urine Color Urine Appearance Urine pH Ur Specific [place] Urine Protein Urine Glucose (UA) Urine Ketones Urine Blood Urine Nitrite Ur Leukocyte Esterase 08/17/22 08/18/22 15:01 06:21 MCV 87.7 MCH 30.1 MCHC 34.3 RDW 11.8 Plt Count 210 MPV 9.6 Immature Gran % (Auto) 0.7 H Neut % (Auto) 64.6 Lymph % (Auto) 24.2 [place] % (Auto) 8.6 Eos % (Auto) 1.2 Baso % (Auto) 0.7 Lymph # (Auto) 1.4 [place] # (Auto) 0.5 Eos # (Auto) 0.1 Baso # (Auto) 0.0 Abs Immat Gran (auto) 0.04 H Absolute Neuts (auto) 3.7 Absolute Nucleated RBC 0.000 Nucleated RBC % (auto) 0.0 Anion Gap Estim Creat Clear Calc Estimated GFR Random Glucose Calcium Magnesium Total Bilirubin AST ALT Alkaline Phosphatase Troponin I High Sens Total Protein Albumin Urine Color Yellow Urine Appearance Clear Urine pH 8.0 Ur Specific [place] 1.010 Urine Protein Negative Urine Glucose (UA) Negative Urine Ketones Negative Urine Blood Negative Urine Nitrite Negative Ur Leukocyte Esterase Negative Procedures Date of Service Date of Service: 08/18/22 Progress Note: A&P Assessment and plan (1) Appendicitis: Status: Acute Plan patient found to have a very mild/ early appendicitis by CT but by history and examination is asymptomatic. WBC is normal this morning. Examination today reveals abdomen to be soft and nontender, without peritoneal signs. Place patient on regular diet. This is well tolerated patient will be discharged home on oral antibiotics. Back pain seems to be unrelated to the appendix. Time Spent With Patient Time: Total time spent is greater than 50% in coordination of care (as documented) at patient's floor/unit and/or counseling patient: Quality Stroke Does the patient have a stroke diagnosis?: No VTE Prior VTE?: No VTE Risk Level:: Surgical - low VTE Device Contraindication: N/A - Device Ordered VTE Drug Contraindication: N/A - Med Ordered
[2022-08-18 08:16] LABS: Anion Gap 15 (12-20); Blood Urea Nitrogen 18 mg/dL (9-16); Calcium 9.1 mg/dL (8.4-10.2); Carbon Dioxide 23 mmol/L (22-29); Chloride 106 mmol/L (96-108); Creatinine Clr Calc Pharmacy 75.7; Estimated Glomerular Filt Rate > 60; Glucose Random 97 mg/dL (60-115); Potassium 4.4 mmol/L (3.3-5.1); Sodium 140 mmol/L (135-145)
--- NOTE | 2022-08-21 10:21 | P.DS_ITS ---
DS: Providers Provider Date of Service: 08/18/22 Date of admission: 08/17/22 19:02 Primary care physician: Radha Stoll MD Attending physician on admission: Madelyn Chavez Consults: 08/17/22 17:36 Consult to General Surgery Stat Consulting Provider: Madelyn Chavez Reason for consultation: appendicitis Has provider been notified: Yes Attending physician on discharge: Stephen Garcia DS: Diagnosis Discharge Diagnosis (1) Appendicitis: Status: Acute DS: Summary Hospital Course Hospital Course: BRIEF HPI: Nicolas Diego is a 67 year old male who woke up this morning with back pain radiating to left and right side. Has had back pain before but not sure if this is the same. No issues with nausea or vomiting no trouble or changes in bowel movements. No fever or chills. His wbc is normal but CT scan shows distended fluid filled appendix, no inflammatory changes around. currently pt says he is hungry no pain. Feels more discomfort in his back. HOSPITAL COURSE: He was admitted to the surgical service for observation and further treatment of the possible early acute appendicitis. He was started on IV zosyn. The following day he denied abd pain and had only very mild back pain remaining. His WBC remained normal.?By history and examination he was asymptomatic but CT suggested early appendicitis and there it was decided to treat conservatively with antibiotics, transition to PO if tolerating solid diet.?His back pain seemed to be unrelated to the appendix. He was advanced to a regular diet.?He was reassessed later in the day and was tolerating the diet without any recurrent symptoms. He was discharged to home on a 10 day course of PO Augmentin with follow up in the office with Dr. Garcia. Status at Discharge Functional status at discharge: independent ambulation Overall status at discharge: patient is back to baseline Time Spent with Patient Time attestation: Total time spent providing and/or coordinating discharge services: Discharge coordination time: Greater than 30 minutes Quality: Safe Use of Opioids Does Pt have an Active Cancer Diagnosis on the Problem List?: No Quality: Stroke Does the patient have a stroke diagnosis?: No Physical Exam Vital Signs: Vital Signs: Last Vital Signs Temp 98.4 F 08/17/22 14:53 Pulse 56 08/18/22 07:50 Resp 14 08/18/22 07:50 BP 159/75 H 08/18/22 07:50 Pulse Ox 98 08/18/22 07:50 O2 Del Method 08/18/22 07:50 BMI result Body Mass Index 26.6 Const: General: comfortable, no acute distress and alert Orientation/consci ousness: patient oriented x3 Resp: Effort & Inspection: normal respiratory effort GI: Inspection: No distended Palpation (GI): Soft to palpation and nontender Back/Spine/Pelvis: Back: No back tenderness Skin: General skin exam: no rashes or lesions noted Neuro: General: patient oriented x3 Discharge Plan Discharge Patient Disposition: Home, Self-Care Discharge Diagnosis: appendicitis Referrals: Stephen Garcia MD [Physician] - 2 weeks Po,Radha Amos MD [Primary Care Provider] - Discharge Medications: New amoxicillin-pot clavulanate [Augmentin] 500-125 mg tablet 1 tab PO BID Qty: 20 0RF Continued omega-3 fatty acids-fish oil 300-1,000 mg capsule 1 cap PO DAILY 90 Days Qty: 90 3RF cholecalciferol (vitamin D3) 25 mcg (1,000 unit) capsule 25 mcg PO DAILY 90 Days Qty: 90 1RF amlodipine 5 mg tablet 5 mg PO DAILY Qty: 90 2RF finasteride 5 mg tablet 5 mg PO DAILY 90 Days Qty: 90 2RF folic acid 1 mg tablet 1 mg PO DAILY Qty: 90 1RF lisinopril 40 mg tablet 40 mg PO DAILY 90 Days Qty: 90 1RF cyanocobalamin (vitamin B-12) 1,000 mcg tablet 1,000 mcg PO DAILY Discharge Orders: Discharge Order (Routine); Ordered 08/18/22 Ordered By: Stephen Garcia Diet: Advance to usual diet Activity on Discharge: As tolerated Activity Restrictions/Additional Instructions: You likely have early acute appendicitis. This will be treated with oral antibiotics. Your back pain is likely unrelated to the appendicitis and you should see your PCP regarding this. Call Your Doctor If: ? ? -Your temperature exceeds 101.5? F? ? ? -You experience excessive pain or swelling ? ? -You have an unexpected reaction to medication ? ? -You experience continued vomiting/nausea Care Plan Goals: Return to baseline health and gradual return to activity. Health Concerns: Appendicitis Plan of Treatment: PO antibiotics F/u in office Assessment: Improved Discharge Date/Time: 08/18/22 17:48
== END 2022-08-18 17:48 | disposition home or self-care (01) ==
LOC: HO.ED 08-18 11:21 → HO.EDOVER 08-18 13:36
PROVIDERS: Physician Assistant Medical; Admitting Provider Surgery; Emergency Provider Emergency Medicine; PCP Internal Medicine; Visit Provider Surgery
DX: K35.80 Unspecified acute appendicitis (principal); M54.50 Low back pain, unspecified; R10.9 Unspecified abdominal pain; R11.2 Nausea with vomiting, unspecified; R07.89 Other chest pain; Z79.899 Other long term (current) drug therapy
CPT/HCPCS: 36415; 71046; 74176; 80048; 80053; 81003; 83735; 84484; 85025; 93005; 96361; 96374; 96375; 96376; 99219; 99285; J2543

== ENCOUNTER 2022-08-21 14:57 | Outpatient (REF) | payer MEDICARE, SELFPAY ==
--- NOTE | ~2022-08-21 | XR_ITS ---
EXAMINATION: XR LUMBOSACRAL SPINE CLINICAL INFORMATION: Lower back pain. COMPARISON: None TECHNIQUE: AP and lateral views of the lumbar spine and lateral view of the lumbosacral junction. FINDINGS: Vertebral body heights are normal. There is a mild lumbar dextroscoliosis, with rotatory component. The lumbar disc spaces are relatively well-maintained. No acute fracture or spondylolisthesis is seen. There is multi-level lower thoracic and lumbar spondylosis. The posterior elements are intact. The paravertebral soft tissues are unremarkable. XR/XR lumbar spine 2-3V IMPRESSION: 1. No acute fracture or spondylolisthesis is seen. 2. There is multi-level lower thoracic and lumbar spondylosis. 3. The lumbar disc spaces are well-maintained. 4. There is a mild lumbar dextroscoliosis, with rotatory component. EXAMINATION: XR SACRUM AND COCCYX CLINICAL INFORMATION: Lower back pain. COMPARISON: None TECHNIQUE: 3 frontal and lateral views of the sacrum and coccyx were obtained. FINDINGS: There are no fractures. No bone, joint or soft tissue abnormality is demonstrated. IMPRESSION: Unremarkable examination.
--- NOTE | ~2022-08-21 | XR_ITS ---
EXAMINATION: XR LUMBOSACRAL SPINE CLINICAL INFORMATION: Lower back pain. COMPARISON: None TECHNIQUE: AP and lateral views of the lumbar spine and lateral view of the lumbosacral junction. FINDINGS: Vertebral body heights are normal. There is a mild lumbar dextroscoliosis, with rotatory component. The lumbar disc spaces are relatively well-maintained. No acute fracture or spondylolisthesis is seen. There is multi-level lower thoracic and lumbar spondylosis. The posterior elements are intact. The paravertebral soft tissues are unremarkable. XR/XR sacrum coccyx min 2V IMPRESSION: 1. No acute fracture or spondylolisthesis is seen. 2. There is multi-level lower thoracic and lumbar spondylosis. 3. The lumbar disc spaces are well-maintained. 4. There is a mild lumbar dextroscoliosis, with rotatory component. EXAMINATION: XR SACRUM AND COCCYX CLINICAL INFORMATION: Lower back pain. COMPARISON: None TECHNIQUE: 3 frontal and lateral views of the sacrum and coccyx were obtained. FINDINGS: There are no fractures. No bone, joint or soft tissue abnormality is demonstrated. IMPRESSION: Unremarkable examination.
== END 2022-08-21 14:58 | disposition home or self-care (01) ==
LOC: HO.XRAY 14:57
PROVIDERS: PCP Internal Medicine; Visit Provider Nurse Practitioner Family
DX: M54.50 Low back pain, unspecified (principal)
CPT/HCPCS: 72100; 72220

== ENCOUNTER 2022-08-30 09:45 | Outpatient (REF) | payer MEDICARE, SELFPAY ==
[2022-08-30 10:01] LABS: MANUAL DIFF FLAG NO
[2022-08-30 10:33] LABS: Basophils Absolute Auto 0.1 X10*3/uL (0.0-0.2); Basophils Percent Auto 0.9 % (0-2); Eosinophils Absolute Auto 0.1 X10*3/uL (0.0-0.4); Eosinophils Percent Auto 1.8 % (0-4); Hematocrit 43.2 % (42.0-52.0); Hemoglobin 14.7 g/dl (14.0-18.0); Imm Gran Abs Auto 0.01 X10*3/uL (0.00-0.03); Imm Gran Pct Auto 0.2 % (0.0-0.4); Lymphocytes Absolute Auto 1.4 X10*3/uL (1.2-4.9); Lymphocytes Percent Auto 26.1 % (20-40); Mean Corpuscular Hemoglobin 29.9 pg (27.0-33.0); Mean Platelet Volume 10.1 fL (9.4-12.4); Monocytes Absolute Auto 0.4 X10*3/uL (0.1-1.2); Monocytes Percent Auto 6.8 % (2-11); Neutrophils Absolute Auto 3.5 x10*3/uL (2.0-8.3); Neutrophils Percent Auto 64.2 % (45-73); Platelet Count 221 X10*3/uL (160-400); Red Blood Count 4.91 X10*6/uL (4.60-5.80); Red Cell Distribution Width 11.6 % (11.0-16.0); White Blood Count 5.4 X10*3/uL (4.8-10.8)
[2022-08-30 10:43] LABS: Estimated Average Glucose 111 mg/dL; Hemoglobin A1c % 5.5 %
[2022-08-30 11:45] LABS: Alanine Aminotransferase 17 U/L (0-40); Albumin Level 4.7 g/dL (3.5-5.0); Alkaline Phosphatase 61 U/L (39-117); Anion Gap 11 (12-20); Aspartate Amino Transferase 19 U/L (5-37); Bilirubin Total 0.7 mg/dL (0.0-1.0); Blood Urea Nitrogen 16 mg/dL (9-16); Calcium 9.9 mg/dL (8.4-10.2); Carbon Dioxide 29 mmol/L (22-29); Chloride 104 mmol/L (96-108); Cholesterol 191 mg/dL; Estimated Glomerular Filt Rate > 60; Free T4 (Free Thyroxine) 0.93 ng/dL (0.71-1.85); Glucose Random 92 mg/dL (60-115); HDL Cholesterol 37 mg/dL; LDL Cholesterol Calculated 111 mg/dl; Potassium 4.3 mmol/L (3.3-5.1); Sodium 140 mmol/L (135-145); Thyroid Stimulating Hormone 1.71 uIU/mL (0.32-4.0); Total Protein 7.1 g/dL (6.5-8.0); Triglycerides 216 mg/dL
[2022-08-30 12:02] LABS: Folate 19.1 ng/mL (> or = 4.0); Vitamin B12 536 pg/mL (200-900)
[2022-09-06 12:32] LABS: PSA, Ultra Sensitive 3.87 ng/mL
== END 2022-08-30 09:46 | disposition home or self-care (01) ==
LOC: HO.LAB 09:45
PROVIDERS: PCP Internal Medicine; Visit Provider Internal Medicine
DX: Z12.5 Encounter for screening for malignant neoplasm of prostate (principal); C61 Malignant neoplasm of prostate; I10 Essential (primary) hypertension; R73.02 Impaired glucose tolerance (oral); E78.00 Pure hypercholesterolemia, unspecified
CPT/HCPCS: 36415; 80053; 80061; 82607; 82746; 83036; 84153; 84439; 84443; 85025

== ENCOUNTER 2022-12-29 10:12 | Outpatient (REF) | payer MEDICARE, SELFPAY ==
[2022-12-29 11:28] LABS: Prostate Specific Antigen 4.29 ng/mL (<0.05-4.0)
== END 2022-12-29 10:13 | disposition home or self-care (01) ==
LOC: HO.LAB 10:12
PROVIDERS: PCP Internal Medicine; Visit Provider Urology
DX: Z12.5 Encounter for screening for malignant neoplasm of prostate (principal); C61 Malignant neoplasm of prostate
CPT/HCPCS: 36415; 84153

== ENCOUNTER → 2023-01-09 11:20 | Outpatient (BNVA) | payer MEDICARE, SELFPAY | PROVIDERS: PCP Internal Medicine; Visit Provider Urology | DX: C61 Malignant neoplasm of prostate (principal); N40.1 Benign prostatic hyperplasia with lower urinary tract symptoms; N13.8 Other obstructive and reflux uropathy; Z79.899 Other long term (current) drug therapy | CPT/HCPCS: 51798; 99212 ==

== ENCOUNTER 2023-02-19 10:48 | Outpatient (REF) | payer MEDICARE, SELFPAY ==
--- NOTE | ~2023-02-19 | XR_ITS ---
EXAMINATION: XR SHOULDER, LEFT CLINICAL INFORMATION: Pain for one week COMPARISON: Left shoulder x-rays 07/26/2021 TECHNIQUE: Three views of the left shoulder. FINDINGS: Visualized portion of the proximal left humerus demonstrate no fracture. Humeral head demonstrates good articulation with the glenoid fossa. Acromioclavicular joint is unremarkable. Visualized left-sided ribs and lung parenchyma are unremarkable. XR/XR shoulder LT min 2V IMPRESSION: Unremarkable radiographs of the left shoulder.
== END 2023-02-19 10:49 | disposition home or self-care (01) ==
LOC: HO.XRAY 10:48
PROVIDERS: PCP Internal Medicine; Visit Provider Nurse Practitioner Family
DX: M25.512 Pain in left shoulder (principal)
CPT/HCPCS: 73030

== ENCOUNTER 2023-04-13 11:00 | Outpatient (RCR) | payer MEDICARE, SELFPAY | END 2023-04-18 09:46 | disposition home or self-care (01) | LOC: HO.PTCHIC 11:00 | PROVIDERS: PCP Internal Medicine; Visit Provider Nurse Practitioner Family | DX: M25.512 Pain in left shoulder (principal) | CPT/HCPCS: 97110; 97162; 97530 ==

== ENCOUNTER 2023-04-16 14:49 | Emergency (ER) | payer MEDICARE, SELFPAY ==
[2023-04-16 14:56] VITALS: BP 151/96; PULSE 108; RESP 16; TEMP 36.7; O2SAT 98; BMI 25.8
--- NOTE | 2023-04-16 14:58 | ED.GENADULT ---
HPI - General Adult General Chief complaint: Burn/Smoke Inhalation Stated complaint: Reyes all over body Time Seen by Provider: 04/16/23 15:40 Source: patient and RN notes reviewed Mode of arrival: ambulatory Limitations: no limitations History of Present Illness HPI narrative: This is a 67-year-old male, with a past medical history of hypertension hyperlipidemia, presenting to the emergency department for evaluation of antifreeze reyes on left arm, abdomen, back since today. Patient reports that he was working on his car and the antifreeze sputum out of the car and landed onto his back his left arm in his abdomen. Patient states that he quickly rinsed off with a hose. He states that his skin is burning, his worst pain is in his left hand. Patient denies getting any antifreeze on his face. Patient denies any chest pain or shortness of breath. Denies any fevers, chills, nausea, vomiting, or diarrhea. No difficulty swallowing. No other complaints or concerns at this time. MD complaint: Chemical reyes Onset (ago): day(s) Radiation: non-radiation Quality: burning Pain Consistency: constant Relieving factors: none Exacerbating factors: none Associated symptoms: denies other symptoms Treatments prior to arrival: none Related Data Previous Rx's Medication Instructions Recorded amlodipine 5 mg tablet 5 mg PO DAILY #90 caps 03/27/22 finasteride 5 mg tablet 5 mg PO DAILY 90 days #90 tabs 08/10/22 folic acid 1 mg tablet 1 mg PO DAILY #90 tabs 08/19/22 cyanocobalamin (vitamin B-12) 1,000 mcg PO DAILY #90 tabs 09/06/22 1,000 mcg tablet omega-3 fatty acids-fish oil 300 1 cap PO DAILY 90 days #90 caps 09/06/22 mg-1,000 mg capsule cholecalciferol (vitamin D3) 25 25 mcg PO DAILY 90 days #90 caps 10/14/22 mcg (1,000 unit) capsule lisinopril 40 mg tablet 40 mg PO DAILY 90 days #90 tabs 04/07/23 acetaminophen 325 mg capsule 650 mg PO QID PRN pain #30 caps 04/16/23 (Tylenol) bacitracin 500 unit/gram topical 1 appl topical BID #30 grams 04/16/23 ointment ibuprofen 600 mg tablet 600 mg PO Q6H PRN pain #30 tabs 04/16/23 oxycodone 5 mg tablet 5 mg PO TID PRN pain #10 tabs 04/16/23 Allergies Allergy/AdvReac Type Severity Reaction Status Date / Time No Known Allergies Allergy Verified 02/28/23 11:25 Review of Systems Review of Systems: Constitutional: No Weight loss, No Fever, No Chills, No Night Sweats, No Fatigue, No Malaise ENT/Mouth: No Hearing loss, No Ear Pain, No Nasal Congestion, No Sinus Pain, No Hoarseness, No sore throat, No Rhinorrhea, No Swallowing Difficulty Eyes: No Eye Pain, No Swelling, No Redness, No Foreign Body, No Discharge, No Vision Changes Cardiovascular: No Chest Pain, No SOB, No Dyspnea on Exertion, No Orthopnea, No Edema, No Palpitations Respiratory: No Cough, No Sputum, No Wheezing, No Smoke Exposure, No Dyspnea Gastrointestinal: No Nausea, No Vomiting, No Diarrhea, No Constipation, No Abdominal pain, No Hematochezia, No Melena Genitourinary: No irregular bleeding, No Dysuria, No Urinary Frequency, No Hematuria, No Urinary Incontinence/retention, No Urgency, No Flank Pain, No Urinary Flow Changes, No Hesitancy Musculoskeletal: No joint pain, No Myalgias, No Joint Swelling Skin: No Skin Lesions, No rash Neuro: No Weakness, No Numbness, No Paresthesias, No Loss of Consciousness, No Dizziness, No Headache Psych: No Anxiety/Panic, No Depression, No SI/HI/AH/VH, No Social Issues, Heme/Lymph: No Bruising, No Bleeding,No Lymphadenopathy Endocrine: No Polyuria, No Polydipsia, No Temperature Intolerance Yes all other systems are reviewed and are negative Constitutional: Constitutional: Reports as per HPI [facility] Past Medical History Medical History (Updated 04/17/23 @ 00:01 by Lobo Olmstead) Alcohol abuse Anxiety Appendicitis Back pain, lumbosacral Hypercholesterolemia Hypertension Insomnia Overweight (BMI 25.0-29.9) Preop exam for internal medicine Prostate cancer Vitamin B12 deficiency Vitamin D deficiency Surgical History History of prostate biopsy Family History Family History Father No problems noted. Mother Diabetes Brother Diabetes Social History Social History (Updated 02/28/23 @ 11:51 by Radha Stoll MD) Household Members: Spouse Housing: Apartment Alcohol intake: current Patient Tobacco Use Status: Never used Tobacco e-Cigarette/Vaping Use: Never Used Second Hand Smoke Exposure: No Current occupational status: employed Current occupation: [employer] Cognitive needs: No Hearing needs: No Vision needs: No Physical Exam ED Vital Signs: Vital Signs - 24 hr 04/16/23 14:56 04/16/23 18:43 Temperature 98.1 F 97.6 F Pulse Rate 108 H 84 Respiratory Rate 16 18 Blood Pressure 151/96 H 168/100 H Pulse Oximetry 98 98 Oxygen Delivery Method Room Air Room Air BMI result Body Mass Index 25.8 Const General: cooperative, comfortable and no acute distress Orientation/consciousness: patient oriented x3 Limitations: no limitations HENMT Head: Yes normal to inspection, Yes normocephalic and Yes atraumatic Ears: hearing grossly normal bilaterally General nose exam: Normal external nose present Face and sinus: Yes normal facial exam Mouth: Normal oral and palatal mucosa present, oropharynx normal and moist mucous membranes Throat: Yes posterior oropharynx normal Eyes General: appearance normal, both eyes and all related structures Eyelids: Yes eyelids normal Conjunctivae: conjunctivae normal Sclerae: sclerae normal Pupils: Equal, round and reactive pupils present EOM: EOMs intact bilaterally Neck Neck: Yes normal visual inspection, Yes full ROM and Yes no lymphadenopathy Lymphatic: no lymphadenopathy noted Chest Chest palpation & inspection: normal inspection of the chest Resp Effort & Inspection: normal respiratory effort and able to speak in complete sentences Auscultation: clear to auscultation bilaterally, no crackles, no rales, no rhonchi and no wheezes Cardio Rate: regular rate Rhythm: regular rhythm Heart sounds: S1 normal heart sound present and S2 normal heart sound present GI Inspection: Yes normal to inspection Skin Other: Extensive first-degree burn without blistering on the back, 1st degree burn noted to the anterior chest wall,. Left arm palmar surface there is a second-degree burn with blistering overlying the digits. All reyes are blanching, sensation is intact. No sloughing. General skin exam: no rashes or lesions noted Trauma: no lacerations or abrasions Wounds: no wounds Neuro General: patient oriented x3 and moves all extremities Cranial nerves: Yes Equal, round and reactive pupils present Extrem General: Yes normal to inspection Right upper extremity: normal to inspection Left upper extremity: normal to inspection Right lower extremity: normal to inspection Left lower extremity: normal to inspection Course Course Course Narrative: RME: 67 yold male presents to the ED for reyes to abdomen/back/ and left hand after hot water and anitifreeze fell on him while doing some car work. Nurse Xochitl informed to bring patient immeidatley to the ED. Reevaluation(s) Reevaluation #1: Call out to [facility] burn unit Time: 16:13 Reevaluation #2: Spoke to [facility] who recommends applying bacitracin and applying nonadherent dressing for the next 2 weeks. They will follow up with patient outpatient. But given patient's reyes are 1st and 2nd degree, does not need transfer at this time. Patient updated tetanus in department. Discussed return precautions. Understands and agrees with plan. Patient is stable for discharge. Medications Administered Discontinued Medications Generic Name Dose Route Start Last Admin Trade Name Freq PRN Reason Stop Dose Admin Acetaminophen 975 mg 04/16/23 16:19 04/16/23 16:40 Acetaminophen 325 Mg Tablet PO 04/16/23 16:20 975 mg ONCE ONE Administration Bacitracin 10 appl 04/16/23 17:31 04/16/23 18:40 Bacitracin Oint 0.9 Gm Packet TOPICAL 04/16/23 17:32 10 appl ONCE ONE Administration Protocol Diphtheria/Tetanus/Acell Pertussis 0.5 ml 04/16/23 16:32 04/16/23 16:42 Diphth,Pertus(Acell),Tet Adult 0.5 Ml Syringe IM 04/16/23 16:33 0.5 ml .ONCE ONE Administration Medical Decision Making Medical Decision Making MDM Narrative: 67-year-old male presenting to the emergency department for evaluation of chemical burn on his chest, back, and left hand. Patient states that he was working on his car when suddenly antifreeze sprayed of onto own. He is running away and the antifreeze got him in the back. He immediately rinsed his skin quickly off with a garden hose. Patient states he it is burning sensation on his skin. He states that the worst pain is in his left hand. Discussed case with attending physician Dr. Tineo, who recommends reaching out to [facility] for further assessment and evaluation. Differential Diagnosis Differential Diagnoses: The differential diagnosis associated with the presentation includes Chemical burn, 1st degree burn, second-degree burn, third-degree burn, cellulitis Admission/Observation Consideration of admission/observation: Escalation of care including admission/observation considered Escalation of care was considered including admission given extension of reyes. External Record Review External record reviewed: Inpatient record, Office record, Outpatient record, Prior outpatient labs, Prior outpatient radiology, Primary care record and Outside ED record Critical Care Time Critical Care Time Critical Care Time: Yes Total Critical Care Time: 35 Attestation: I have personally provided critical care time exclusive of time spent on separately billable procedures. Time includes review of lab data, radiology results, discussion with consultants, and monitoring for potential decompensation. Intervention performed as documented. Discharge Plan Discharge Clinical Impression: Chemical burn Patient Disposition: Home, Self-Care Instructions: Chemical Skin Burn (ED) Additional Instructions: You were in contact with a chemical that caused your skin to burn. Please apply bacitracin twice a day the next 14 days or until wound care sees you. Please keep wounds clean and dry. Watch for any signs of infection including but not limited to increased redness, swelling, fevers or chills, drainage. Please take Tylenol and ibuprofen as needed for pain. I am also prescribing you a necrotic medication for severe pain only. Do not drink alcohol or drive while taking this medication. If any new or worsening symptoms occur please return. Follow-up with the wound care team, [facility] should be call you to make an appointment for you may follow-up with the wound clinic here. Prescriptions: New bacitracin 500 unit/gram ointment 1 appl topical BID Qty: 30 0RF ibuprofen 600 mg tablet 600 mg PO Q6H PRN (Reason: pain) Qty: 30 0RF acetaminophen [Tylenol] 325 mg capsule 650 mg PO QID PRN (Reason: pain) Qty: 30 0RF oxycodone 5 mg tablet 5 mg PO TID PRN (Reason: pain) Qty: 10 0RF Rx Instructions: Partial Fill upon patient request. No Action amlodipine 5 mg tablet 5 mg PO DAILY Qty: 90 2RF finasteride 5 mg tablet 5 mg PO DAILY 90 Days Qty: 90 2RF folic acid 1 mg tablet 1 mg PO DAILY Qty: 90 1RF cholecalciferol (vitamin D3) 25 mcg (1,000 unit) capsule 25 mcg PO DAILY 90 Days Qty: 90 1RF lisinopril 40 mg tablet 40 mg PO DAILY 90 Days Qty: 90 1RF omega-3 fatty acids-fish oil 300-1,000 mg capsule 1 cap PO DAILY 90 Days Qty: 90 3RF cyanocobalamin (vitamin B-12) 1,000 mcg tablet 1,000 mcg PO DAILY Qty: 90 2RF Referrals: [facility] Wound Care Management [Provider Group] Interventions: ED Discharge Assessment Last Done: 04/16/23 18:56 Discharge Date/Time: 04/16/23 18:57
--- NOTE | 2023-04-16 16:11 | PC.NURSE ---
Per verbal orders of Amanda Tineo MD, wash pt.'s reyes off with sterile water and gauze. Just lightly dab the wound areas to wash, and leave wounds open to air at this time. KRANTHI Busby is consulting [facility] at this time.
[2023-04-16 18:43] VITALS: BP 168/100; PULSE 84; RESP 18; TEMP 36.4; O2SAT 98
--- NOTE | 2023-04-16 18:51 | PC.NURSE ---
This RN spent appx. 40 minutes with pt. and his family, wrapping pt.'s wounds as ordered verbally by - Casandra to all areas of burn, covered with non-stick gauze, then wrapped his entire torso area to reinforce the non-stick gauze. Pt. confirms that wrap is not too constrictive or tight, but feels supportive.
== END 2023-04-16 18:57 | disposition home or self-care (01) ==
PROVIDERS: Emergency Provider Emergency Medicine Emergency Medical Services; PCP Internal Medicine
DX: T21.13XA Burn of first degree of upper back, initial encounter (principal); T22.20XA Burn of second degree of shoulder and upper limb, except wrist and hand, unspecified site, initial encounter; T23.252A Burn of second degree of left palm, initial encounter; T23.242A Burn of second degree of multiple left fingers (nail), including thumb, initial encounter; T21.11XA Burn of first degree of chest wall, initial encounter; X12.XXXA Contact with other hot fluids, initial encounter; Y93.89 Activity, other specified; Y92.9 Unspecified place or not applicable; Y99.9 Unspecified external cause status
CPT/HCPCS: 16000; 90471; 90715; 99283; 99284

== ENCOUNTER 2023-04-24 13:47 | Outpatient (RCR) | payer MEDICARE, SELFPAY | END 2023-04-24 16:00 | disposition home or self-care (01) | LOC: HO.WCC 13:47 | PROVIDERS: PCP Internal Medicine; Visit Provider Physician Assistant | DX: T21.21XA Burn of second degree of chest wall, initial encounter (principal); T21.23XA Burn of second degree of upper back, initial encounter; T22.222A Burn of second degree of left elbow, initial encounter; T23.212A Burn of second degree of left thumb (nail), initial encounter; T31.20 Burns involving 20-29% of body surface with 0% to 9% third degree burns; X12.XXXA Contact with other hot fluids, initial encounter; Y93.9 Activity, unspecified; Y92.9 Unspecified place or not applicable; Y99.9 Unspecified external cause status | CPT/HCPCS: 99212 ==

== ENCOUNTER 2023-05-02 10:07 | Outpatient (REF) | payer MEDICARE, SELFPAY ==
[2023-05-02 12:03] LABS: PSA,Total (Free>4and<10) 4.03 ng/mL (0.00-4.00)
[2023-05-07 13:03] LABS: Free Prostate Spec Ag 0.3 ng/mL; Percent Free Prostate Spec Ag 8 % (calc) (>25); Prostate Specific Ag Total 3.9 ng/mL (< OR = 4.0)
== END 2023-05-02 10:08 | disposition home or self-care (01) ==
LOC: HO.LAB 10:07
PROVIDERS: PCP Internal Medicine; Visit Provider Urology
DX: Z12.5 Encounter for screening for malignant neoplasm of prostate (principal); C61 Malignant neoplasm of prostate
CPT/HCPCS: 36415; 84153; 84154

== ENCOUNTER 2023-05-08 13:01 | Outpatient (AMB) | payer MEDICARE, SELFPAY ==
--- NOTE | 2023-05-08 13:05 | A.OFFVIS_ITS ---
Intake Intake Visit Reasons: 4M PSA(pending) Intake Note: Patient is present for Follow Up PSA Urology Med: Finasteride Antibiotic Allergy: None Blood Thinner: None Allergies No Known Allergies Allergy (Verified 02/28/23 11:25) HPI HPI Comments History of Present Illness Details Nicolas is a pleasant Frisian-speaking male. He is seen for the following urologic conditions - prostate cancer PSA stable. Plan for repeat prostate biopsy Prostate cancer low-grade prostate cancer 2016 management active surveillance Initial diagnosis Dr. Del Cid 2016 Initial PSA 2016 Biopsy pathology - [place] 3+3 2/12 cores - minimal volume 2019 biopsy pathology - No cancer seen on 12 core biopsy Imaging - 01/02 MRI PI-RADS 3, 1.1 cm lesion left lateral side, 35 cc prostate PSA 07/03 7.1, 10/03 9, 06/04 3.6, 10/04 3.0, 02/03 3.8, 06/05 3.7, 01/04 4.3, 05/06 3.9 8% finasteride Planned management - continue finasteride - repeat PSA in 6 months [facility] Medical History (Updated 04/17/23 @ 00:01 by Lobo Olmstead) Alcohol abuse Anxiety Appendicitis Back pain, lumbosacral Hypercholesterolemia Hypertension Insomnia Overweight (BMI 25.0-29.9) Preop exam for internal medicine Prostate cancer Vitamin B12 deficiency Vitamin D deficiency Surgical History History of prostate biopsy Family History Father No problems noted. 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 Cognitive needs: No Hearing needs: No Vision needs: No Review of Systems Const Denies chills and Denies fever(s) Card Reports no additional complaints and Denies syncope Resp Denies cough GI Denies abdominal pain and Denies heartburn Reports as per HPI and Denies change in libido Neuro Denies syncope Psych Denies change in libido Endo Denies change in libido Physical Exam Const General: cooperative, healthy appearing, comfortable and no acute distress Orientation/consciousness: patient oriented x3 HEENT Face and sinus: Yes normal facial exam Mouth: moist mucous membranes Neck Neck: Yes normal visual inspection, Yes full ROM and Yes trachea midline Chest Chest palpation & inspection: normal inspection of the chest Resp Effort & Inspection: normal respiratory effort, able to speak in complete sentences and no respiratory distress GI Inspection: Yes normal to inspection Back/Spine/Pelvis Cervical Spine: normal cervical lordosis Thoracic/Lumbar Spine: thoracic and lumbar spine normal to inspection Skin General skin exam: no rashes or lesions noted Neuro General: patient oriented x3, gait normal, tone normal and moves all extremities Extrem General: Yes normal to inspection and Yes capillary refill normal Assessment & Plan Assessment & Plan (1) BPH w urinary obs/LUTS: Code(s): N40.1 - Benign prostatic hyperplasia with lower urinary tract symptoms; N13.8 - Other obstructive and reflux uropathy (2) Prostate cancer: Comment: Initial biopsy low-grade 2/12 core, repeat biopsy no cancer found Code(s): C61 - Malignant neoplasm of prostate Plan Risks, benefits and alternatives to therapy were discussed. These include but are not limited to infection, bleeding, damage to local organs and tissues, need for further interventions. Anesthetic risks regarding cardiac arrhythmia, blood clots, and potential mortality were discussed. The patient understands the typical recovery time and the outpatient nature of the procedure. After consideration of these risks the patient gives full informed consent and they wish to move ahead with the procedure. Targeted biopsy Patient Instructions: Imaging studies, laboratory and physical exam results were discussed and reviewed in detail. No major barriers to patient understanding were identified. An opportunity to ask questions regarding the treatment plan was provided. All questions were answered. The patient expressed understanding and agreement with the above treatment plan. The patient is aware they should contact our office by phone for worsening of their current condition or the appearance of new urologic symptoms. Compliance is encouraged with any medications and followup testing that is ordered. It is a privilege to participate in the urologic care of your patient. If you have any questions or concerns regarding treatment for the above conditions, or other urologic issues, please do not hesitate to contact me. The office telephone contact is [phone]. This note is constructed using voice recognition software. While every effort has been made to ensure accuracy bridal sales consultant errors may have been included. Yours sincerely, Dr Cristhian Shen MD, [facility] - Urology Providers of Expert, Compassionate Care for the Genitourinary System Coding Level of Care Code Est Pt Level 4 (45283) Diagnoses BPH w urinary obs/LUTS N40.1; N13.8 Prostate cancer C61
== END 2023-05-08 13:33 | disposition home or self-care (01) ==
PROVIDERS: Visit Provider Urology
DX: N40.1 Benign prostatic hyperplasia with lower urinary tract symptoms (principal); N13.8 Other obstructive and reflux uropathy; Z85.46 Personal history of malignant neoplasm of prostate
CPT/HCPCS: 99213

== ENCOUNTER → 2023-05-08 13:01 | Outpatient (BNVA) | payer MEDICARE, SELFPAY | PROVIDERS: Visit Provider Urology | DX: N40.1 Benign prostatic hyperplasia with lower urinary tract symptoms (principal); N13.8 Other obstructive and reflux uropathy; C61 Malignant neoplasm of prostate | CPT/HCPCS: 99212 ==

== ENCOUNTER 2023-06-04 07:44 | Day surgery (SDC) | payer MEDICARE, SELFPAY ==
[2023-05-31 10:40] VITALS: BMI 24.9
[2023-06-04] VITALS (8 sets, daily range): BP systolic 98–166; BP diastolic 62–89; PULSE 64–76; RESP 14–18; TEMP 36.1–36.9; O2SAT 96–98
[2023-06-04] MEDS: Lactated Ringers 1,000 ML 50 ML IVCONT (07:58)
--- NOTE | 2023-06-04 09:00 | MHC.SHP ---
Pre-Procedural Eval Section A Date of Service: 06/04/23 The patient is an INPATIENT: No Changes since office visit: No Cold of Flu in the past 2 weeks, No New Medical Problems, No Changes in Medication and No Patient answered all questions The History & Physical has been completed within 30 days and I have reviewed it.: Yes Section B Chief Complaint: Elevated prostate specific antigen [PSA] Allergies: Allergies Allergy/AdvReac Type Severity Reaction Status Date / Time No Known Allergies Allergy Verified 06/04/23 08:15 Review of Systems Sugical H&P ROS: Negative: Constitution, Cardiovascular, Respiratory, Neurological, Psychiatric, Hem-Onc, Allergic/Immunologic, Gastrointestinal, Genitourinary, Musculoskeletal, Integumentary, Endocrine and Eyes/Ears/Nose/Throat Exam Surgical H&P Exam: Normal: HEENT, Normal: Heart, Normal: Lungs, Normal: Extremities, Normal: Abdomen, Normal: Skin and Normal: Neurological Plan Diagnosis/Plan: Unchanged (prostate biopsy MRI) I have reviewed the history and physical and performed a pertinent physical examination on my patient. No changes have occurred unless specified. Time Spent With Patient Time: Total time managing care of this patient today ____ minutes.
--- NOTE | 2023-06-04 09:02 | P.CONAN_ITS ---
HPI - Anesthesia Eval Consult details Narrative: for targeted prostate bx PMFSH Active Problems Active Problems: All Active Problems (Updated 04/17/23 @ 00:01 by Lobo Olmstead) Impacted cerumen of right ear (Acute) Osteoarthritis of lower back (Acute) COVID-19 virus infection (Acute) Cervical radiculopathy (Acute) Glaucoma (Acute) Generalized anxiety disorder (Acute) Left shoulder pain (Acute) Subconjunctival hemorrhage (Acute) Annual physical exam (Acute) BPH w urinary obs/LUTS (Acute) Vitamin B12 deficiency (Acute) Impaired glucose tolerance (Acute) Hypertension (Acute) Hypercholesterolemia (Acute) Prostate cancer (Acute) Past Medical History Medical History Alcohol abuse Anxiety Appendicitis Back pain, lumbosacral Hypercholesterolemia Hypertension Insomnia Overweight (BMI 25.0-29.9) Preop exam for internal medicine Prostate cancer Vitamin B12 deficiency Vitamin D deficiency Family History Family History Father No problems noted. Mother Diabetes Brother Diabetes Family history of problems with anesthesia: No Surgical History Surgical History History of prostate biopsy History of Problems with Anesthesia: No Social History Social History (Updated 02/28/23 @ 11:51 by Radha Stoll MD) Household Members: Spouse Housing: Apartment Alcohol intake: current Alcohol intake frequency: former alcohol drinker Patient Tobacco Use Status: Never used Tobacco e-Cigarette/Vaping Use: Never Used Second Hand Smoke Exposure: No Are you DNR?: No Advance Directives: No Advance Directives Information Provided: Yes Nutrition Risks: No Nutritional Risk Current occupational status: employed 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 Cognitive needs: No Hearing needs: No Vision needs: No Meds Allergies Allergy/AdvReac Type Severity Reaction Status Date / Time No Known Allergies Allergy Verified 06/04/23 08:15 Active Medications: Current Medications Lactated Ringer's (Lr) 1,000 mls @ 50 mls/hr IVCONT .Q20H TICO Last Admin: 06/04/23 07:58 Dose: 50 mls/hr Levofloxacin (Levaquin) 500 mg in 100 mls @ 100 mls/hr IV PREOP ONE Stop: 06/04/23 09:55 Exam Exam Date and Time: June 04, 2023 0902 Height,Weight and Vital Signs: Height 5 ft 7 in Weight 72.121 kg Last Vital Signs Temp 97.9 F 06/04/23 08:12 Pulse 76 06/04/23 08:12 Resp 18 06/04/23 08:12 BP 148/73 H 06/04/23 08:19 Pulse Ox 96 06/04/23 08:12 O2 Del Method Room Air 06/04/23 08:12 Airway Mallampati Class: I TM Dist: >3cm Neck ROM: Full Loose/Missing/Broken Teeth: No Heart: ok Lungs: ok Assessment and Plan Assessment Anesthesia Assessment: Anesthesia Plan Discussed and Chart Reviewed Final Anesthetic Review Family History of Problems with Anesthesia: No History of Problems with Anesthesia: No NPO: Yes ASA Class: III Final Preanesthetic Review: No Changes in Pt Med Stat, Meds/Allgs Chart Reviewed, Consent Obtained/Reviewed and Anes Risks/Benef Reviewed Patient Risk: Intermediate Procedure Risk: Low Anesthetic Plan Anesthetic Plan: GA and Agree w/ Assess. and Plan Disposition: Standard PACU
--- NOTE | 2023-06-04 09:42 | W.PM.OPN ---
Operative Note Operative Note Date of Service: 06/04/23 Narrative: Preoperative diagnosis: Prostate Cancer Postoperative diagnosis: Prostate Cancer Procedure: 1. transrectal ultrasound measurement of prostate 2. transrectal ultrasound-guided pudendal nerve block 3. MRI-US fusion image registration performed 3. transperineal ultrasound-guided prostate biopsy 15 core including targets Surgeon: Dr. Cristhian Shen Anesthetic: Sedation plus local Indications for procedure: Prostate Cancer Procedure: After informed consent was verified, the patient was brought into the procedure area. Patient identity confirmed. Perioperative antibiotics confirmed. Safety pause time out performed. Anesthesia performed per protocol Ultrasound probe was placed per rectum Focalis software and hardware platform used An ultrasound-guided pudendal nerve block was performed using 10 cc of 1% lidocaine. 8 cc was placed at the base and 2 cc of the apex. Perineal injection of local. Ultrasound placement was made with grid calibration for height and prostate diameter in both the transverse and longitudinal planes. Once grid calibration was confirmed ultrasound acquisition was performed in the transverse fashion. Three dimensional ultrasound model was created. The planned needle targeting based on prior acquisition of MRI imaging was overlaid on the ultrasound images and targets confirmed through ultrasound review. Based on pre -planning evaluation 15 targets had been identified. These included 1 targets of the PI-RADS 3 prostate apex right identified lesion/s.. He tolerated the procedure well. Was transferred to stable condition in the PACU. Printed instructions regarding antibiotic use and common side effects such as low-grade temperature, potential infection and bleeding were given Pathology: 15 prostate biopsy CPT 02106 Modifier 22 for complexity of planning and procedure execution
== END 2023-06-04 10:45 | disposition home or self-care (01) ==
PROVIDERS: PCP Internal Medicine; Visit Provider Urology
PROC: (CPT 55700; principal; 2023-06-04 11:00)
DX: C61 Malignant neoplasm of prostate (principal); N40.1 Benign prostatic hyperplasia with lower urinary tract symptoms; R97.20 Elevated prostate specific antigen [PSA]; N13.8 Other obstructive and reflux uropathy; I10 Essential (primary) hypertension; E78.00 Pure hypercholesterolemia, unspecified; F41.1 Generalized anxiety disorder; Z79.899 Other long term (current) drug therapy; F10.10 Alcohol abuse, uncomplicated
CPT/HCPCS: 55700; 88305; J1956; J3010

== ENCOUNTER → 2023-06-04 07:44 | Outpatient (BNV) | payer MEDICARE, SELFPAY | PROVIDERS: PCP Internal Medicine; Visit Provider Urology | DX: R97.20 Elevated prostate specific antigen [PSA] (principal) | CPT/HCPCS: 55700; 76942 ==

== ENCOUNTER 2023-06-26 10:40 | Outpatient (AMB) | payer MEDICARE, SELFPAY ==
--- NOTE | 2023-06-26 10:41 | MHC.OFFVIS ---
Intake Intake Visit Reasons: biopsy results Intake Note: Patient is present for Telephone Biopsy Results Urology Med: Finasteride Antibiotic Allergy: None Blood Thinner: None Pharmacy: [facility] pharmacy Allergies No Known Allergies Allergy (Verified 06/26/23 10:42) HPI HPI Comments History of Present Illness Details Nicolas is a pleasant Citizen [place]-speaking male. He is seen for the following urologic conditions - prostate cancer Telemedicine Evaluation 15 min Consultation Doximity Carlos Video attempted Repeat biopsy Multi core disease on targeted area of left side of prostate Recommend therapy with targetted cryoablation Histologic type: Acinar adenocarcinoma [place] score:3+3=6 (parts C, F, G, H), 3+4=7 (parts A, D) Grade group: 1 (parts C, F, G, H), 2 (parts A, D) Number cores positive: 6 Total number of cores: 15 % of tissue involved: 15% of all tissue examined Periprostatic fat inv.: Not identified Seminal vesicle inv.: Not identified Perineural inv.: Present LVI: Not identified Prostate cancer low-grade prostate cancer 2017 management active surveillance Initial diagnosis Dr. Del Cid 2016 Initial PSA 2016 Biopsy pathology - [place] 3+3 2/12 cores - minimal volume 2019 biopsy pathology - No cancer seen on 12 core biopsy Imaging - 01/02 MRI PI-RADS 3, 1.1 cm lesion left lateral side, 35 cc prostate PSA 07/03 7.1, 10/03 9, 06/04 3.6, 10/04 3.0, 02/03 3.8, 06/05 3.7, 01/04 4.3, 05/06 3.9 8% finasteride Planned management - continue finasteride - cryotherapy targeted PFSH Medical History Back pain, lumbosacral Appendicitis Preop exam for internal medicine Anxiety Vitamin D deficiency Overweight (BMI 25.0-29.9) Vitamin B12 deficiency Insomnia Alcohol abuse Hypertension Hypercholesterolemia Prostate cancer Surgical History History of prostate biopsy Family History Father No problems noted. 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 Cognitive needs: No Hearing needs: No Vision needs: No Review of Systems Const All systems reviewed & are unremarkable except as noted in HPI and below Reports no additional complaints Resp Reports no additional complaints GI Reports no additional complaints Reports as per HPI Musc Reports no additional complaints Physical Exam Telemedicine evaluation Appropriate responses Regular breathing rate and rhythm HEENT Head: Yes normal to inspection Ears: hearing grossly normal bilaterally Eyes General: appearance normal, both eyes and all related structures Neck Neck: Yes normal visual inspection Chest Chest palpation & inspection: normal inspection of the chest Resp Effort & Inspection: normal respiratory effort and able to speak in complete sentences Assessment & Plan Assessment & Plan (1) Prostate cancer: Comment: Initial biopsy low-grade 2/12 core, repeat biopsy no cancer found Code(s): C61 - Malignant neoplasm of prostate Plan Targeted Cryotherapy Risks, benefits and alternatives to therapy were discussed. These include but are not limited to infection, bleeding, damage to local organs and tissues, need for further interventions. Anesthetic risks regarding cardiac arrhythmia, blood clots, and potential mortality were discussed. The patient understands the typical recovery time and the outpatient nature of the procedure. After consideration of these risks the patient gives full informed consent and they wish to move ahead with the procedure. Patient Instructions: Imaging studies, laboratory and physical exam results were discussed and reviewed in detail. No major barriers to patient understanding were identified. An opportunity to ask questions regarding the treatment plan was provided. All questions were answered. The patient expressed understanding and agreement with the above treatment plan. The patient is aware they should contact our office by phone for worsening of their current condition or the appearance of new urologic symptoms. Compliance is encouraged with any medications and followup testing that is ordered. It is a privilege to participate in the urologic care of your patient. If you have any questions or concerns regarding treatment for the above conditions, or other urologic issues, please do not hesitate to contact me. The office telephone contact is [phone]. This note is constructed using voice recognition software. While every effort has been made to ensure accuracy manager internal errors may have been included. Yours sincerely, Dr Cristhian Shen MD, [facility] - Urology Providers of Expert, Compassionate Care for the Genitourinary System Telehealth Telehealth Location of provider rendering services: practice address Location of patient: address on file Patient Identification confirmed using: Name, : Yes Telehealth method: video Patient verbally consented to treatment: Yes Patient verbally consented to billing insurance company: Yes Patient informed of any privacy concerns related to visit: Yes Coding Level of Care Code Tele Est Pt Level 4 (78368) Diagnoses Prostate cancer C61
== END 2023-06-26 11:09 | disposition home or self-care (01) ==
LOC: HO.HUSH 10:40
PROVIDERS: PCP Internal Medicine; Visit Provider Urology
DX: C61 Malignant neoplasm of prostate (principal)
CPT/HCPCS: 99214

== ENCOUNTER → 2023-06-26 10:40 | Outpatient (BNVA) | payer MEDICARE, SELFPAY | PROVIDERS: PCP Internal Medicine; Visit Provider Urology ==

== ENCOUNTER 2023-08-17 10:27 | Outpatient (REF) | payer MEDICARE, SELFPAY ==
[2023-08-17 10:44] LABS: MANUAL DIFF FLAG NO
[2023-08-17 10:52] LABS: Basophils Absolute Auto 0.1 X10*3/uL (0.0-0.2); Basophils Percent Auto 1.2 % (0-2); Eosinophils Absolute Auto 0.1 X10*3/uL (0.0-0.4); Eosinophils Percent Auto 2.2 % (0-4); Hematocrit 43.3 % (42.0-52.0); Hemoglobin 14.8 g/dl (14.0-18.0); Imm Gran Abs Auto 0.02 X10*3/uL (0.00-0.03); Imm Gran Pct Auto 0.4 % (0.0-0.4); Lymphocytes Absolute Auto 1.3 X10*3/uL (1.2-4.9); Lymphocytes Percent Auto 24.9 % (20-40); Mean Corpuscular HGB Conc 34.2 g/dl (31.0-36.0); Mean Corpuscular Hemoglobin 30.4 pg (27.0-33.0); Mean Corpuscular Volume 88.9 fL (80.0-98.0); Monocytes Absolute Auto 0.4 X10*3/uL (0.1-1.2); Neutrophils Absolute Auto 3.2 x10*3/uL (2.0-8.3); Neutrophils Percent Auto 63.3 % (45-73); Platelet Count 210 X10*3/uL (160-400); Red Blood Count 4.87 X10*6/uL (4.60-5.80); Red Cell Distribution Width 11.8 % (11.0-16.0); White Blood Count 5.1 X10*3/uL (4.8-10.8)
[2023-08-17 11:00] LABS: Estimated Average Glucose 108 mg/dL; Hemoglobin A1c % 5.4 % (<6.0)
[2023-08-17 11:35] LABS: Alanine Aminotransferase 19 U/L (0-40); Albumin Level 4.7 g/dL (3.5-5.0); Alkaline Phosphatase 63 U/L (39-117); Anion Gap 11 (12-20); Aspartate Amino Transferase 24 U/L (5-37); Bilirubin Total 0.9 mg/dL (0.0-1.0); Blood Urea Nitrogen 16 mg/dL (9-16); Calcium 9.8 mg/dL (8.4-10.2); Carbon Dioxide 28 mmol/L (22-29); Chloride 103 mmol/L (96-108); Cholesterol 221 mg/dL (<200); Estimated Glomerular Filt Rate > 60; Glucose Random 103 mg/dL (60-115); HDL Cholesterol 43 mg/dL (>40); LDL Cholesterol Calculated 141 mg/dL (<100); Potassium 3.8 mmol/L (3.3-5.1); Sodium 138 mmol/L (135-145); Total Protein 7.6 g/dL (6.5-8.0); Triglycerides 185 mg/dL (<150)
[2023-08-17 11:43] LABS: PSA,Total (Free>4and<10) 3.65 ng/mL (0.00-4.00)
[2023-08-17 12:00] LABS: Folate 14.6 ng/mL (> or = 4.0); Vitamin B12 639 pg/mL (200-900)
[2023-08-17 12:01] LABS: Free T4 (Free Thyroxine) 0.79 ng/dL (0.71-1.85); Thyroid Stimulating Hormone 1.89 uIU/mL (0.32-4.0)
== END 2023-08-17 10:28 | disposition home or self-care (01) ==
LOC: HO.LAB 10:27
PROVIDERS: PCP Internal Medicine; Visit Provider Internal Medicine
DX: C61 Malignant neoplasm of prostate (principal); R73.02 Impaired glucose tolerance (oral); E78.00 Pure hypercholesterolemia, unspecified; Z12.5 Encounter for screening for malignant neoplasm of prostate
CPT/HCPCS: 36415; 80053; 80061; 82607; 82746; 83036; 84153; 84439; 84443; 85025

== ENCOUNTER 2023-08-28 10:43 | Outpatient (AMB) | payer MEDICARE, SELFPAY ==
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
[2023-08-28 10:47] VITALS: BP 140/90; PULSE 91; O2SAT 99; BMI 24.7
== END 2023-08-28 11:26 | disposition home or self-care (01) ==
PROVIDERS: Visit Provider Internal Medicine
DX: C61 Malignant neoplasm of prostate (principal); E78.00 Pure hypercholesterolemia, unspecified; I10 Essential (primary) hypertension; R73.02 Impaired glucose tolerance (oral); T30.4 Corrosion of unspecified body region, unspecified degree
CPT/HCPCS: 99214

== ENCOUNTER 2023-11-30 10:47 | Outpatient (REF) | payer MEDICARE, SELFPAY ==
[2023-11-30 12:05] LABS: Estimated Average Glucose 105 mg/dL; Hemoglobin A1c % 5.3 % (<6.0)
[2023-11-30 12:36] LABS: Alanine Aminotransferase 21 U/L (0-40); Albumin Level 4.6 g/dL (3.5-5.0); Alkaline Phosphatase 66 U/L (39-117); Anion Gap 12 (12-20); Aspartate Amino Transferase 24 U/L (5-37); Bilirubin Total 0.6 mg/dL (0.0-1.0); Blood Urea Nitrogen 16 mg/dL (9-16); Calcium 9.6 mg/dL (8.4-10.2); Carbon Dioxide 28 mmol/L (22-29); Chloride 104 mmol/L (96-108); Cholesterol 208 mg/dL (<200); Estimated Glomerular Filt Rate > 60; Glucose Random 99 mg/dL (60-115); HDL Cholesterol 46 mg/dL (>40); LDL Cholesterol Calculated 123 mg/dL (<100); Potassium 4.5 mmol/L (3.3-5.1); Sodium 139 mmol/L (135-145); Total Protein 7.6 g/dL (6.5-8.0); Triglycerides 199 mg/dL (<150)
== END 2023-11-30 10:48 | disposition home or self-care (01) ==
LOC: HO.LAB 10:47
PROVIDERS: PCP Internal Medicine; Visit Provider Internal Medicine
DX: E78.00 Pure hypercholesterolemia, unspecified (principal); R73.02 Impaired glucose tolerance (oral)
CPT/HCPCS: 36415; 80053; 80061; 83036

== ENCOUNTER 2023-12-06 10:56 | Outpatient (AMB) | payer MEDICARE, SELFPAY ==
[2023-12-06 10:57] VITALS: BP 160/90; PULSE 77; O2SAT 99; BMI 24.7
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
== END 2023-12-06 11:29 | disposition home or self-care (01) ==
PROVIDERS: PCP Internal Medicine; Visit Provider Internal Medicine
DX: E78.00 Pure hypercholesterolemia, unspecified (principal); I10 Essential (primary) hypertension; R73.02 Impaired glucose tolerance (oral); F41.1 Generalized anxiety disorder; Z85.46 Personal history of malignant neoplasm of prostate
CPT/HCPCS: 99214

== ENCOUNTER 2023-12-28 15:15 | Outpatient (AMB) | payer MEDICARE, SELFPAY ==
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
== END 2023-12-28 16:11 | disposition home or self-care (01) ==
PROVIDERS: PCP Internal Medicine; Visit Provider Urology
DX: N40.1 Benign prostatic hyperplasia with lower urinary tract symptoms (principal); N13.8 Other obstructive and reflux uropathy; C61 Malignant neoplasm of prostate
CPT/HCPCS: 99214

== ENCOUNTER → 2023-12-28 15:15 | Outpatient (BNVA) | payer MEDICARE, SELFPAY | PROVIDERS: PCP Internal Medicine; Visit Provider Urology | DX: N40.1 Benign prostatic hyperplasia with lower urinary tract symptoms (principal); N13.8 Other obstructive and reflux uropathy; C61 Malignant neoplasm of prostate | CPT/HCPCS: 51798; 99212 ==

== ENCOUNTER 2024-03-19 12:23 | Outpatient (AMB) | payer MEDICARE, SELFPAY ==
[2024-03-19 12:32] VITALS: BP 150/72; PULSE 76; O2SAT 97; BMI 23.5
--- NOTE | 2024-03-19 12:35 | A.OFFVIS_ITS ---
Intake Vital Signs 03/19/24 12:32 Height 5 ft 7 in Weight 150 lb BMI 23.5 BP 150/72 H Blood Pressure Location Lt brachial Position Sitting Pulse 76 Pulse Source Pulse Oximeter Pulse Oximetry (%) 97 Oxygen Delivery Method Room Air Intake Visit Reasons: AWV [id number] Allergies No Known Allergies Allergy (Verified 03/19/24 12:36) Medication List - Last Reconciled 03/19/24 by Radha Stoll MD amlodipine 5 mg PO DAILY bacitracin 1 appl topical BID cholecalciferol (vitamin D3) 25 mcg PO DAILY 90 days cyanocobalamin (vitamin B-12) 1,000 mcg PO DAILY fenofibrate 160 mg PO DAILY finasteride 5 mg PO DAILY 90 days folic acid 1 mg PO DAILY lisinopril 40 mg PO DAILY 90 days omega-3 fatty acids-fish oil 300-1,000 mg 1 cap PO DAILY 90 days HPI AWV [id number] HPI Details 68-year-old male with prostate cancer, h ypertension hypercholesterolemia impaired glucose tolerance in generalized anxiety disorder coming in for an annual well visit. Last seen in 12/04/2023. Patient's colonoscopy is up-to-date June 2018 10 years. Patient is being seen by radiation oncology for the prostate cancer patient on active surveillance intermediate risk favorable advised either surgery or external beam radiation but not hormonal therapy. BP here is high and states BP is good at home. Patient is noted to have lost weight but family states he does have a good appetite but he does admit that he has been exercising more. Noted also the partner to have lost weight. As for the prostate cancer patient wants to see the urologist 1st. Declined rectal exam [facility] Medical History (Updated 03/19/24 @ 12:42 by Radha Stoll MD) Chemical burn Back pain, lumbosacral Appendicitis Preop exam for internal medicine Anxiety Vitamin D deficiency Overweight (BMI 25.0-29.9) Vitamin B12 deficiency Insomnia Alcohol abuse Hypertension Hypercholesterolemia Prostate cancer Surgical History History of prostate biopsy Family History Father No problems noted. 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 Cognitive needs: No Hearing needs: No Vision needs: No Questionnaire Medicare Wellness Checkup [age] What gender do you identify with?: male During the past 4 weeks, how much have you been bothered by emotional problems such as feeling anxious, depressed, irritable, sad or downhearted, and blue?: moderately During the past 4 weeks, has your physical & emotional health limited your social activities with family, friends, neighbors, or groups?: not at all During the past 4 weeks, how much bodily pain have you generally had?: no pain During the past 4 weeks, was someone available to help you if you needed & wanted help?: yes, as much as I wanted During the past 4 weeks, what was the hardest physical activity you could do for at least 2 minutes?: moderate Can you get to places out of walking distance without help? (For eg., can you travel alone on buses, taxis or drive your car?): Yes Can you go shopping for groceries or clothes without someone's help?: Yes Can you prepare your own meals?: Yes Can you do your housework without help?: Yes Because of any health problems, do you need the help of another person with your personal care needs such as eating, bathing, dressing or getting around the house?: No Can you handle your own money without help?: Yes During the past 4 weeks, how would you rate your health in general?: very good During the past 4 weeks how have things been going for you?: very well; could hardly better Are you having difficulties driving your car?: no Do you always fasten your seat belt when you are in a car?: no During past 4 weeks, have you been bothered by the following: never: Falling or dizzy when standing up, Sexual problems?, Trouble eating well?, Teeth or denture problems?, Problems using the telephone? and Tiredness or fatigue? Have you fallen 2 or more times in the past year?: No Are you afraid of falling?: No Are you a smoker?: no During the past 4 weeks, how many drinks of wine, beer, or other alcoholic beverages did you have?: 2-5 drinks per week Do you exercise for about 20 minutes 3 or more times a week?: yes, most of the time Have you been given information to help with the following?: no: Hazards in your house that might hurt you? and no: Keeping track of your medications? How often do you have trouble taking medicines the way you have been told to take them?: I always take medicine as prescribed How confident are you that you can control & manage most of your health problems?: somewhat confident What is your race?: or origin or descent PHQ-9 Over the last 2 weeks, how often have you been bothered by any of the following problems? 1. Little interest or pleasure in doing things: not at all 2. Feeling down, depressed, or hopeless: not at all 3. Trouble falling or staying asleep, or sleeping too much: not at all 4. Feeling tired or having little energy: not at all 5. Poor appetite or overeating: not at all 6. Feeling bad about yourself - or that you are a failure or have let yourself or your family down: not at all 7. Trouble concentrating on things, such as reading the newspaper or watching television: not at all 8. Moving or speaking so slowly that other people could have noticed. Or the opposite - being so fidgety or restless that you have been moving around a lot more than usual: not at all 9. Thoughts that you would be better off or of hurting yourself in some way: not at all Total score: 0 Depression Screening Interpretation: Negative Depression Screening Done: Yes 23401 - PHQ-9 Billing: Yes Source: Developed by Drs. Bhavik Schultz, Amelia Darby, Diomedes Burnham and colleagues, with an educational aidan from [employer]. GAMALIEL-7 AMB Questionnaire GAMALIEL-7 Date GAMALIEL - 7 assessed: 12/06/23 Source: Developed by Drs. Bhavik Schultz, Diomedes Mcwilliams and colleagues, with an educational aidan from [employer]. Thrive Questionnaire Date Thrive assessed: 06/05/24 I am a: Patient What is your living situation today?: I have a steady place to live Within the past 12 months, did the food you bought not last and you didn't have the money to get more?: Never true Within the past 12 months, did you worry whether your food would run out before you got money to buy more?: Never true Do you have trouble paying for medicines?: No Do you have trouble getting transportation to medical appointments?: No Do you have trouble paying your heating and electricity bill?: No Do you have trouble taking care of your child, family member or friend?: No Do you have trouble with day-to-day activities such as bathing, preparing meals, shopping, managing finances, etc.?: No Are you currently unemployed and looking for a job?: No Are you interested in more education?: No Currently or been in a relationship where the following occur: no concerns reported THRIVE Score: 0 Review of Systems Const Denies poor appetite and Denies weakness Eyes Denies no additional complaints ENT Reports Normal hearing present, Denies dizziness, Denies nasal congestion, Denies tinnitus and Denies sore throat Card Denies chest pain, Denies syncope, Denies rapid heart rate and Denies dyspnea Resp Denies cough and Denies dyspnea GI Denies change in stool character, Reports constipation, Denies diarrhea, Denies nausea and Denies vomiting Denies dysuria and Denies urinary frequency Neuro Reports Normal hearing present, Denies confusion, Denies dizziness, Denies syncope and Denies weakness Psych Denies confusion Physical Exam Vital Signs: Oxygen Delivery Method Room Air 03/19/24 12:32 BMI result Body Mass Index 23.5 Const General: No confusion Orientation/consciousness: No confusion HEENT Head: Yes normocephalic Ears: external ears normal and TM's normal bilaterally Face and sinus: Yes normal facial exam Mouth: moist mucous membranes Throat: Yes tonsils normal Eyes Conjunctivae: conjunctivae normal Pupils: Equal, round and reactive pupils present and Pupil accommodation reflex normal Direct Ophthalmoscopy: normal light reflex Neck Neck: No lymphadenopathy Thyroid: Thyroid normal Chest Chest palpation & inspection: normal inspection of the chest Resp Effort & Inspection: normal respiratory effort and no audible wheezes Auscultation: clear to auscultation bilaterally, no crackles, no wheezes and lung sounds not diminished Cardio Rate: regular rate Rhythm: regular rhythm Peripheral pulses: radial pulses present and dorsalis pedis present GI Palpation (GI): no masses Auscultation: normal bowel sounds and normoactive bowel sounds Rectal Exam - Male: Yes deferred Skin General skin exam: no rashes or lesions noted Rashes: no rashes Neuro General: No confusion Cranial nerves: Yes Equal, round and reactive pupils present and Yes Normal hearing present Cognition (Neuro): normal cognition Gait exam (Neuro): Normal gait present Motor exam (neuro): 5/5 motor strength present throughout Deep tendon reflexes (DTR's): Right brachioradialis reflex intensity grade: 2+, Left brachioradialis reflex intensity grade: 2+, Right patellar reflex intensity grade: 2+ and Left patellar reflex intensity grade: 2+ Extrem General: No edema Assessment & Plan Assessment & Plan (1) Prostate cancer: Comment: Initial biopsy low-grade 2/ core, repeat biopsy 2015 Code(s): C61 - Malignant neoplasm of prostate Plan: Patient follows up with Urology and Radiation Oncology and has recommended either radiation or surgery. (2) Medicare annual wellness visit, subsequent: Code(s): Z00.00 - Encounter for general adult medical examination without abnormal findings Plan: Patient is advised to eat healthy, keep well hydrated, keep active and have adequate sleep. (3) Hypertension: Code(s): I10 - Essential (primary) hypertension Qualifiers: Hypertension type: essential hypertension Qualified Code(s): I10 - Essential (primary) hypertension Plan: Continue with blood pressure medication. Decrease salt intake and exercise patient on amlodipine 5 mg once a day lisinopril 40 mg once a day (4) Hypercholesterolemia: Code(s): E78.00 - Pure hypercholesterolemia, unspecified Plan: Avoid fried foods, chicken skin, eggs, butter margarine, pastries and meat. Be it pork or beef they have a lot of cholesterol on fenofibrate 160 mg once a day 12/04/2023 last blood work (5) Impaired glucose tolerance: Code(s): R73.02 - Impaired glucose tolerance (oral) Plan: Decrease the amount of carbohydrate intake, pasta, bread, rice and potatoes are all sugar and that is aside from all the sweet stuff, remember that fruits are good but they are Sweet also. (6) Generalized anxiety disorder: Code(s): F41.1 - Generalized anxiety disorder Plan: Stable Orders: Orders Thyroid Stimulating Hormone Today I10 - Essential (primary) hypertension Lipid Panel Today E78.00 - Pure hypercholesterolemia, unspecified, I10 - Essential (primary) hypertension Complete Blood Count Auto Diff Today I10 - Essential (primary) hypertension Comprehensive Met. Panel Today I10 - Essential (primary) hypertension Free T4 (Free Thyroxine) Today I10 - Essential (primary) hypertension Vitamin B12 and Folate Today I10 - Essential (primary) hypertension Prostate Specific Antigen Scr Today I10 - Essential (primary) hypertension Quality Reporting (2019) Depression/Bipolar (159/160/161/177) PHQ-9: Total score: 0 Coding Level of Care Code Medicare Subsequent (G0439) Diagnoses Prostate cancer C61 Medicare annual wellness visit, subsequent Z00.00 Essential hypertension I10 Hypertension type: essential hypertension Hypercholesterolemia E78.00 Impaired glucose tolerance R73.02 Generalized anxiety disorder F41.1
== END 2024-03-19 13:11 | disposition home or self-care (01) ==
PROVIDERS: PCP Internal Medicine; Visit Provider Internal Medicine
DX: Z23 Encounter for immunization (principal); Z00.00 Encounter for general adult medical examination without abnormal findings; C61 Malignant neoplasm of prostate; I10 Essential (primary) hypertension; E78.00 Pure hypercholesterolemia, unspecified; R73.02 Impaired glucose tolerance (oral); F41.1 Generalized anxiety disorder
CPT/HCPCS: 90471; 90677; G0439

== ENCOUNTER 2024-03-19 13:25 | Outpatient (REF) | payer MEDICARE, SELFPAY ==
[2024-03-19 13:43] LABS: MANUAL DIFF FLAG NO
[2024-03-19 14:42] LABS: Basophils Percent Auto 0.7 % (0-2); Eosinophils Percent Auto 0.7 % (0-4); Hematocrit 41.8 % (42.0-52.0); Hemoglobin 14.1 g/dl (14.0-18.0); Imm Gran Abs Auto 0.01 X10*3/uL (0.00-0.03); Imm Gran Pct Auto 0.2 % (0.0-0.4); Lymphocytes Absolute Auto 0.9 X10*3/uL (1.2-4.9); Lymphocytes Percent Auto 15.9 % (20-40); Mean Corpuscular HGB Conc 33.7 g/dl (31.0-36.0); Mean Corpuscular Volume 88.9 fL (80.0-98.0); Mean Platelet Volume 10.1 fL (9.4-12.4); Monocytes Absolute Auto 0.4 X10*3/uL (0.1-1.2); Monocytes Percent Auto 6.6 % (2-11); Neutrophils Absolute Auto 4.1 x10*3/uL (2.0-8.3); Neutrophils Percent Auto 75.9 % (45-73); Platelet Count 211 X10*3/uL (160-400); Red Cell Distribution Width 11.7 % (11.0-16.0); White Blood Count 5.5 X10*3/uL (4.8-10.8)
[2024-03-19 15:25] LABS: Prostate Specific Antigen 4.78 ng/mL (<0.05-4.0)
[2024-03-19 15:27] LABS: Alanine Aminotransferase 15 U/L (0-40); Albumin Level 4.6 g/dL (3.5-5.0); Alkaline Phosphatase 67 U/L (39-117); Anion Gap 12 (12-20); Aspartate Amino Transferase 20 U/L (5-37); Bilirubin Total 0.6 mg/dL (0.0-1.0); Blood Urea Nitrogen 14 mg/dL (9-16); Calcium 9.6 mg/dL (8.4-10.2); Carbon Dioxide 26 mmol/L (22-29); Chloride 104 mmol/L (96-108); Cholesterol 190 mg/dL (<200); Estimated Glomerular Filt Rate > 60; Glucose Random 105 mg/dL (60-115); HDL Cholesterol 41 mg/dL (>40); LDL Cholesterol Calculated 102 mg/dL (<100); Potassium 3.8 mmol/L (3.3-5.1); Sodium 138 mmol/L (135-145); Total Protein 7.3 g/dL (6.5-8.0); Triglycerides 237 mg/dL (<150)
[2024-03-19 15:31] LABS: Free T4 (Free Thyroxine) 0.74 ng/dL (0.71-1.85); Thyroid Stimulating Hormone 1.33 uIU/mL (0.32-4.0)
[2024-03-19 15:38] LABS: Folate 14.4 ng/mL (> or = 4.0); Prostate Specific Antigen Scr 4.61 ng/mL (<0.05-4.0); Vitamin B12 511 pg/mL (200-900)
== END 2024-03-19 13:26 | disposition home or self-care (01) ==
LOC: HO.LAB 13:25
PROVIDERS: Absent Provider Urology; PCP Internal Medicine; Visit Provider Internal Medicine
DX: I10 Essential (primary) hypertension (principal); E78.00 Pure hypercholesterolemia, unspecified; C61 Malignant neoplasm of prostate; Z12.5 Encounter for screening for malignant neoplasm of prostate
CPT/HCPCS: 36415; 80053; 80061; 82607; 82746; 84153; 84439; 84443; 85025

== ENCOUNTER 2024-04-01 14:46 | Outpatient (AMB) | payer MEDICARE, SELFPAY ==
--- NOTE | 2024-04-01 15:05 | A.OFFVIS_ITS ---
Intake Visit Reasons: 3m/PSA(set) Intake Note: Patient is Present for Follow Up PSA Urology Medication: Finasteride, Antibiotic Allergies: None Blood Thinners: None Allergies No Known Allergies Allergy (Verified 04/01/24 15:07) HPI Comments Details: Nicolas is a pleasant Russian-speaking male. He is a patient of Dr. Stoll. He is seen for the following urologic conditions - prostate cancer Russian translation provided today in office by qualified medical records assistant Here for follow-up PSA - 04/07 4.6 on finasteride Was found to have multi core grade 2, low volume prostate cancer Treatment options were discussed including external beam radiation with 6 months GnRH, brachytherapy, targeted cryotherapy, possible surgery. Has seen Dr. Gardner for radiation assessment. Would like to move ahead with hypofractionated radiation in setting of spaceoar and Visicoil Will schedule for SpaceOAR placement and Visicoil Had 2nd opinion with Dr [facility] at [facility]. MDX prostate score performed. 50% chance of adverse pathology at prostatectomy. 06/06 Histologic type: Acinar adenocarcinoma - multi core grade group 2 [place] score:3+3=6 (parts C, F, G, H), 3+4=7 (parts A, D) Grade group: 1 (parts C, F, G, H), 2 (parts A, D) Number cores positive: 6 Total number of cores: 15 % of tissue involved: 15% of all tissue examined Periprostatic fat inv.: Not identified Seminal vesicle inv.: Not identified Perineural inv.: Present LVI: Not identified Prostate cancer low-grade prostate cancer 2017 management active surveillance Initial diagnosis Dr. Del Cid 2016 Initial PSA 2016 Biopsy pathology - [place] 3+3 2/12 cores - minimal volume 2019 biopsy pathology - No cancer seen on 12 core biopsy Imaging - 01/02 MRI PI-RADS 3, 1.1 cm lesion left lateral side, 35 cc prostate PSA 07/03 7.1, 10/03 9, 06/04 3.6, 10/04 3.0, 02/03 3.8, 06/05 3.7, 01/04 4.3, 05/06 3.9 8% finasteride Planned management - continue finasteride - cryotherapy targeted [facility] Medical History Chemical burn Back pain, lumbosacral Appendicitis Preop exam for internal medicine Anxiety Vitamin D deficiency Overweight (BMI 25.0-29.9) Vitamin B12 deficiency Insomnia Alcohol abuse Hypertension Hypercholesterolemia Prostate cancer Surgical History History of prostate biopsy Family History Father No problems noted. 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 Cognitive needs: No Hearing needs: No Vision needs: No Review of Systems Const Denies chills and Denies fever(s) Card Reports no additional complaints and Denies syncope Resp Denies cough GI Denies abdominal pain and Denies heartburn Reports as per HPI and Denies change in libido Neuro Denies syncope Psych Denies change in libido Endo Denies change in libido Physical Exam Const General: cooperative, healthy appearing, comfortable and no acute distress Orientation/consciousness: patient oriented x3 HEENT Face and sinus: Yes normal facial exam Mouth: moist mucous membranes Neck Neck: Yes normal visual inspection, Yes full ROM and Yes trachea midline Chest Chest palpation & inspection: normal inspection of the chest Resp Effort & Inspection: normal respiratory effort, able to speak in complete sentences and no respiratory distress GI Inspection: Yes normal to inspection Back/Spine/Pelvis Cervical Spine: normal cervical lordosis Thoracic/Lumbar Spine: thoracic and lumbar spine normal to inspection Skin General skin exam: no rashes or lesions noted Neuro General: patient oriented x3, gait normal, tone normal and moves all extremities Extrem General: Yes normal to inspection and Yes capillary refill normal Assessment & Plan Assessment & Plan (1) BPH w urinary obs/LUTS: Code(s): N40.1 - Benign prostatic hyperplasia with lower urinary tract symptoms; N13.8 - Other obstructive and reflux uropathy Category: Medical (2) Prostate cancer: Comment: Initial biopsy low-grade 2/12 core, repeat biopsy 2015 Code(s): C61 - Malignant neoplasm of prostate Category: Medical Plan Risks, benefits and alternatives to therapy were discussed. These include but are not limited to infection, bleeding, damage to local organs and tissues, need for further interventions. Anesthetic risks regarding cardiac arrhythmia, blood clots, and potential mortality were discussed. The patient understands the typical recovery time and the outpatient nature of the procedure. After consideration of these risks the patient gives full informed consent and they wish to move ahead with the procedure. Needs space oar placement with Visicoil Patient Instructions: Imaging studies, laboratory and physical exam results were discussed and reviewed in detail. No major barriers to patient understanding were identified. An opportunity to ask questions regarding the treatment plan was provided. All questions were answered. The patient expressed understanding and agreement with the above treatment plan. The patient is aware they should contact our office by phone for worsening of their current condition or the appearance of new urologic symptoms. Compliance is encouraged with any medications and followup testing that is ordered. It is a privilege to participate in the urologic care of your patient. If you have any questions or concerns regarding treatment for the above conditions, or other urologic issues, please do not hesitate to contact me. The office telephone contact is [phone]. This note is constructed using voice recognition software. While every effort has been made to ensure accuracy rural mail contractor errors may have been included. Yours sincerely, Dr Cristhian Shen MD, [facility] - Urology Providers of Expert, Compassionate Care for the Genitourinary System Coding Level of Care Code Est Pt Level 4 (86423) Diagnoses BPH w urinary obs/LUTS N40.1; N13.8 Prostate cancer C61
== END 2024-04-01 15:43 | disposition home or self-care (01) ==
PROVIDERS: PCP Internal Medicine; Visit Provider Urology
DX: N40.1 Benign prostatic hyperplasia with lower urinary tract symptoms (principal); N13.8 Other obstructive and reflux uropathy; C61 Malignant neoplasm of prostate
CPT/HCPCS: 99214

== ENCOUNTER → 2024-04-01 14:46 | Outpatient (BNVA) | payer MEDICARE, SELFPAY | PROVIDERS: PCP Internal Medicine; Visit Provider Urology | DX: C61 Malignant neoplasm of prostate (principal); N40.1 Benign prostatic hyperplasia with lower urinary tract symptoms; N13.8 Other obstructive and reflux uropathy | CPT/HCPCS: 99212 ==

== ENCOUNTER 2024-04-22 10:27 | Outpatient (AMB) | payer MEDICARE, SELFPAY ==
--- NOTE | 2024-04-22 10:56 | AM.OFFVISNUR ---
Intake Visit Reasons: GnRH Intake Note: Patient here for Eligard injection. Offered official diplomatic interpreter/translator and patient/ declined. states she understands Irish well. Mend Worker Services: Mend Worker Offered & Declined Mend Worker Name: is present/interprets Accompanied by: Significant Other Allergies No Known Allergies Allergy (Verified 04/01/24 15:07) Nursing Note Patient consented for Eligard and tolerated it well. He was advised to call the office with any questions or concerns. Office Meds Eligard (6 month) 45 mg (6 month) subcutaneous syringe Performing Provider: Cristhian Shen MD [facility] Administered by: Gabriele Bryan RN on 04/22/24 10:45 Dose Route Admin Location Dispensed Lot Number Expiration Date [facility] [employer] 45 mg subcut right arm 45 mg [id number] 04/14/25 16839-878-99 [employer]. Assessment & Plan Assessment & Plan Orders: Orders AMB Leuprolide Injection - Practice Supplied Today C61 - Malignant neoplasm of prostate Medications: New Eligard (6 month) (leuprolide acetate (6 month)) 45 mg subcut ONCE 1 ea 0RF NS C61 - Malignant neoplasm of prostate
== END 2024-04-22 10:54 | disposition home or self-care (01) ==
PROVIDERS: PCP Internal Medicine; Visit Provider Urology
DX: C61 Malignant neoplasm of prostate (principal)

== ENCOUNTER → 2024-04-22 10:27 | Outpatient (BNVA) | payer MEDICARE, SELFPAY | PROVIDERS: PCP Internal Medicine; Visit Provider Urology | DX: C61 Malignant neoplasm of prostate (principal) | CPT/HCPCS: 96402; J9217 ==

== ENCOUNTER 2024-08-06 12:53 | Outpatient (AMB) | payer MEDICARE, SELFPAY ==
[2024-08-06 12:57] VITALS: BP 138/76; PULSE 77; O2SAT 96; BMI 23.6
--- NOTE | 2024-08-06 12:57 | MHC.PC.OV ---
Vital Signs 08/06/24 12:57 Height 5 ft 7 in Weight 151 lb BMI 23.6 BP 138/76 Blood Pressure Location Lt brachial Position Sitting Pulse 77 Pulse Source Pulse Oximeter Pulse Oximetry (%) 96 Oxygen Delivery Method Room Air Intake Visit Reasons: prostate Cancer Allergies No Known Allergies Allergy (Verified 08/06/24 12:58) Medication List - Last Reconciled 08/06/24 by Radha Stoll MD bacitracin 1 appl topical BID cholecalciferol (vitamin D3) 25 mcg PO DAILY 90 days cyanocobalamin (vitamin B-12) 1,000 mcg PO DAILY fenofibrate 160 mg PO DAILY finasteride 5 mg PO DAILY 90 days folic acid 1 mg PO DAILY lisinopril 40 mg PO DAILY 90 days omega-3 fatty acids-fish oil 300-1,000 mg 1 cap PO DAILY 90 days Tobacco use date assessed: 12/06/23 Fall risk assessment: No Falls in past year Last assessed Fall Risk: 08/06/24 Dental Screening Dental Screen Date: 08/06/24 Did you have a dental visit in the last 12 months?: Yes Did you have a dental problem in the last 6 months where you did not have access to dental care?: No Was dental information given to patient?: Patient has dentist HPI prostate Cancer HPI Details 69-year-old male with a history of prostate cancer hypertension hypercholesterolemia impaired glucose tolerance and generalized anxiety disorder last seen in March 2024. Patient had colonoscopy done in 2017. Patient follows up with urology on finasteride treatment options of external beam radiation with 6 months GnRH brachytherapy target cryotherapy possible surgery. PAtient is finished with RAdiation therapy. now with decrease flow of urine- will be seeing urology tomorrow. Patient was asking for a refill on the amlodipine and this was done but then again tells me later on the blood pressure has been going down to low. So discussed with the patient lengthily about blood pressures and getting it under control and not overdoing it. With him getting the blood pressure is low discussed that we do not need additional medication then he has been off of amlodipine and blood pressure has been fine at home. So discontinued amlodipine. Otherwise discussed about the March blood work and will see him on his next physical. [facility] Medical History Chemical burn Back pain, lumbosacral Appendicitis Preop exam for internal medicine Anxiety Vitamin D deficiency Overweight (BMI 25.0-29.9) Vitamin B12 deficiency Insomnia Alcohol abuse Hypertension Hypercholesterolemia Prostate cancer Surgical History History of prostate biopsy Family History Father No problems noted. 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 1. Little interest or pleasure in doing things: not at all 2. Feeling down, depressed, or hopeless: not at all 3. Trouble falling or staying asleep, or sleeping too much: not at all 4. Feeling tired or having little energy: not at all 5. Poor appetite or overeating: not at all 6. Feeling bad about yourself - or that you are a failure or have let yourself or your family down: not at all 7. Trouble concentrating on things, such as reading the newspaper or watching television: not at all 8. Moving or speaking so slowly that other people could have noticed. Or the opposite - being so fidgety or restless that you have been moving around a lot more than usual: not at all 9. Thoughts that you would be better off or of hurting yourself in some way: not at all Total score: 0 Depression Screening Interpretation: Negative Depression Screening Done: Yes 48708 - PHQ-9 Billing: Yes Source: Developed by Drs. Bhavik Schultz, Amelia Darby, Diomedes Burnham and colleagues, with an educational aidan from [employer]. Thrive Questionnaire Date Thrive assessed: 03/19/24 GAMALIEL-7 AMB Questionnaire GAMALIEL-7 Date GAMALIEL - 7 assessed: 12/06/23 Source: Developed by Drs. Bhavik Schultz, Amelia Darby, Diomedes Burnham and colleagues, with an educational aidan from [employer]. Physical exam (Primary Care) Vital Signs: Last Vital Signs Pulse 77 08/06/24 12:57 BP 138/76 08/06/24 12:57 Pulse Ox 96 08/06/24 12:57 Oxygen Delivery Method Room Air 08/06/24 12:57 BMI result Body Mass Index 23.6 Tobacco/Smoking Status: Tobacco use Status Tobacco use date assessed 12/06/23 08/06/24 13:01 Patient Tobacco Use Status Never used Tobacco 08/06/24 13:01 Tobacco use type Cigarette 08/06/24 13:01 e-Cigarette/Vaping Use Never Used 08/06/24 13:01 PHQ-9: PHQ-9 Score PHQ-9: Total score 0 08/06/24 13:31 Depression Screening Interpretation: Negative Thrive Assessment: Date of Thrive Assessment Date Thrive assessed 03/19/24 08/06/24 13:01 Const General: alert; No acute distress Eyes Conjunctivae: conjunctivae normal Resp Auscultation: clear to auscultation bilaterally Cardio Rate: regular rate Rhythm: regular rhythm GI Inspection: Yes normal to inspection Extrem General: Yes normal to inspection and No edema Office Procedures Flu Questionnaire Does the patient have a severe egg allergy?: No Does the patient have severe life threatening allergies?: No Does the patient have a fever or illness today?: No Has the patient ever had Guillain-[place] Syndrome?: No Has the patient ever had any past reaction to a flu shot?: No Immunizations Fluarix Triv [id number] (PF) 45 mcg (15 mcg x 3)/0.5 mL IM syringe Performing Provider: Radha Stoll MD [facility] Documented (not given) by: Pily Ha CMA on 08/06/24 13:02 Reason Not Given: Patient Refused Coding Level of Care Code Est Pt Level 4 (72896) Diagnoses Prostate cancer C61 Essential hypertension I10 Hypertension type: essential hypertension Hypercholesterolemia E78.00 Impaired glucose tolerance R73.02 Assessment & Plan Assessment & Plan (1) Prostate cancer: Comment: Initial biopsy low-grade 2/12 core, repeat biopsy 2015, radiotherapy 2023 Code(s): C61 - Malignant neoplasm of prostate Category: Medical Plan: Patient continues to follow-up with urology. Patient had radiotherapy done and will be follow-up with urology tomorrow. (2) Hypertension: Code(s): I10 - Essential (primary) hypertension Category: Medical Qualifiers: Hypertension type: essential hypertension Qualified Code(s): I10 - Essential (primary) hypertension Plan: Continue with blood pressure medication. Decrease salt intake and exercise on lisinopril 40 mg once a day . Patient has ran out of the amlodipine and has noted blood pressure to be on the lower side. Advised patient to discontinue the amlodipine. (3) Hypercholesterolemia: Code(s): E78.00 - Pure hypercholesterolemia, unspecified Category: Medical Plan: Avoid fried foods, chicken skin, eggs, butter margarine, pastries and meat. Be it pork or beef they have a lot of cholesterol LDL goal of less than 130 and triglyceride of less than 150. On fenofibrate (4) Impaired glucose tolerance: Code(s): R73.02 - Impaired glucose tolerance (oral) Category: Medical Plan: Decrease the amount of carbohydrate intake, pasta, bread, rice and potatoes are all sugar and that is aside from all the sweet stuff, remember that fruits are good but they are Sweet also. Orders: Orders Influenza [id number] Immunization Today Z23 - Encounter for immunization
== END 2024-08-06 13:44 | disposition home or self-care (01) ==
PROVIDERS: PCP Internal Medicine; Visit Provider Internal Medicine
DX: C61 Malignant neoplasm of prostate (principal); I10 Essential (primary) hypertension; E78.00 Pure hypercholesterolemia, unspecified; R73.02 Impaired glucose tolerance (oral); Z23 Encounter for immunization

== ENCOUNTER → 2024-08-06 12:53 | Outpatient (BNVA) | payer MEDICARE, SELFPAY | PROVIDERS: PCP Internal Medicine; Visit Provider Internal Medicine | DX: C61 Malignant neoplasm of prostate (principal); I10 Essential (primary) hypertension; E78.00 Pure hypercholesterolemia, unspecified; R73.02 Impaired glucose tolerance (oral); Z79.899 Other long term (current) drug therapy; Z28.21 Immunization not carried out because of patient refusal | CPT/HCPCS: 90471; 96127; 99212 ==

== ENCOUNTER 2024-08-08 14:26 | Outpatient (AMB) | payer MEDICARE, SELFPAY ==
--- NOTE | 2024-08-08 14:28 | A.OFFVIS_ITS ---
Intake Visit Reasons: Spacer w Visicoil- follow up Intake Note: Patient is present for Follow up Prostate Cyrotherapy was cancelled Urology Med:None Antibiotic Allergy: None Last PSA: 03/19/2024 PSA 4.61 Allergies No Known Allergies Allergy (Verified 08/06/24 12:58) HPI Comments Details: Nicolas is a pleasant Micronesian-speaking male. He is a patient of Dr. Stoll. He is seen for the following urologic conditions - prostate cancer Micronesian translation provided today in office by qualified anesthesiology medical doctor Radiation completed 08/07 Completed hypofractionated radiation in setting of SpaceOAR with Dr. Gardner. Ended up with SpaceOAR placed through Interventional Radiology down in [facility]. Had 2nd opinion with Dr Davis at [facility]. MDX prostate score performed. 50% chance of adverse pathology at prostatectomy. 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 Del Cid 2016 Initial PSA 2016 Biopsy pathology - [place] 3+3 2/12 cores - minimal volume 2019 biopsy pathology - No cancer seen on 12 core biopsy Imaging - 01/02 MRI PI-RADS 3, 1.1 cm lesion left lateral side, 35 cc prostate PSA 07/03 7.1, 10/03 9, 06/04 3.6, 10/04 3.0, 02/03 3.8, 06/05 3.7, 01/04 4.3, 05/06 3.9 8% finasteride, 04/07 4.6 PFSH Medical History Chemical burn Back pain, lumbosacral Appendicitis Preop exam for internal medicine Anxiety Vitamin D deficiency Overweight (BMI 25.0-29.9) Vitamin B12 deficiency Insomnia Alcohol abuse Hypertension Hypercholesterolemia Prostate cancer Surgical History History of prostate biopsy Family History Father No problems noted. 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 Cognitive needs: No Hearing needs: No Vision needs: No Review of Systems Const Denies chills and Denies fever(s) Card Reports no additional complaints and Denies syncope Resp Denies cough GI Denies abdominal pain and Denies heartburn Reports as per HPI and Denies change in libido Neuro Denies syncope Psych Denies change in libido Endo Denies change in libido Physical Exam Const General: cooperative, healthy appearing, comfortable and no acute distress Orientation/consciousness: patient oriented x3 HEENT Face and sinus: Yes normal facial exam Mouth: moist mucous membranes Neck Neck: Yes normal visual inspection, Yes full ROM and Yes trachea midline Chest Chest palpation & inspection: normal inspection of the chest Resp Effort & Inspection: normal respiratory effort, able to speak in complete sentences and no respiratory distress GI Inspection: Yes normal to inspection Back/Spine/Pelvis Cervical Spine: normal cervical lordosis Thoracic/Lumbar Spine: thoracic and lumbar spine normal to inspection Skin General skin exam: no rashes or lesions noted Neuro General: patient oriented x3, gait normal, tone normal and moves all extremities Extrem General: Yes normal to inspection and Yes capillary refill normal Assessment & Plan Assessment & Plan (1) Prostate cancer: Comment: Initial biopsy low-grade 2/12 core, repeat biopsy 2015, radiotherapy 2023 Code(s): C61 - Malignant neoplasm of prostate Category: Medical Plan Four month follow-up labs Orders: Orders Prostate Specific Antigen 4 Months C61 - Malignant neoplasm of prostate Testosterone, Total 4 Months C61 - Malignant neoplasm of prostate Patient Instructions: Imaging studies, laboratory and physical exam results were discussed and reviewed in detail. No major barriers to patient understanding were identified. An opportunity to ask questions regarding the treatment plan was provided. All questions were answered. The patient expressed understanding and agreement with the above treatment plan. The patient is aware they should contact our office by phone for worsening of their current condition or the appearance of new urologic symptoms. Compliance is encouraged with any medications and followup testing that is ordered. It is a privilege to participate in the urologic care of your patient. If you have any questions or concerns regarding treatment for the above conditions, or other urologic issues, please do not hesitate to contact me. The office telephone contact is [phone]. This note is constructed using voice recognition software. While every effort has been made to ensure accuracy tune up mechanic errors may have been included. Yours sincerely, Dr Cristhian Shen MD, [facility] - Urology Providers of Expert, Compassionate Care for the Genitourinary System Coding Level of Care Code Est Pt Level 3 (87579) Diagnoses Prostate cancer C61
== END 2024-08-08 15:10 | disposition home or self-care (01) ==
PROVIDERS: PCP Internal Medicine; Visit Provider Urology
DX: C61 Malignant neoplasm of prostate (principal)
CPT/HCPCS: 99213

== ENCOUNTER → 2024-08-08 14:26 | Outpatient (BNVA) | payer MEDICARE, SELFPAY | PROVIDERS: PCP Internal Medicine; Visit Provider Urology | DX: C61 Malignant neoplasm of prostate (principal) | CPT/HCPCS: 99212 ==

== ENCOUNTER 2024-11-28 09:52 | Outpatient (REF) | payer MEDICARE, SELFPAY ==
[2024-11-28 11:48] LABS: Prostate Specific Antigen < 0.10 ng/mL (<0.05-4.0)
[2024-12-04 15:43] LABS: Testosterone, Total 15 ng/dL (250-1100)
== END 2024-11-28 09:53 | disposition home or self-care (01) ==
LOC: HO.LAB 09:52
PROVIDERS: PCP Internal Medicine; Visit Provider Urology
DX: C61 Malignant neoplasm of prostate (principal); Z12.5 Encounter for screening for malignant neoplasm of prostate
CPT/HCPCS: 36415; 84153; 84403

== ENCOUNTER 2024-12-09 13:53 | Outpatient (AMB) | payer MEDICARE, SELFPAY ==
--- NOTE | 2024-12-09 13:54 | MHC.OFFVIS ---
Intake Visit Reasons: 4m/PSA/Testo(Set) Intake Note: Patient is present for 4M/PSA/TESTO Urology Medication:VITAMIN B12,FINASTERIDE Antibiotic Allergy:NONE Blood Thinner:NONE Bill Recapitulation Clerk Required: No Allergies No Known Allergies Allergy (Verified 12/09/24 13:55) HPI Comments Details: Nicolas is a pleasant Tunisian-speaking male. He is a patient of Dr. Stoll. He is seen for the following urologic conditions - prostate cancer Tunisian translation provided today in office by qualified medical esthetician Telemedicine Evaluation 15 min Consultation [employer] Video Four month follow-up lab work PSA <0.1, T 15 Discussed result with Nicolas and his Plan repeat PSA in 6 months Prostate cancer: Completed external beam radiation with Dr. Gardner Radiation completed 08/07 Completed hypofractionated radiation in setting of SpaceOAR with Dr. Gardner. Ended up with SpaceOAR placed through Interventional Radiology down in [facility]. [facility] MDX prostate score performed. 50% chance of adverse pathology at prostatectomy. 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 Del Cid 2016 Initial PSA 2016 Biopsy pathology - [place] 3+3 2/12 cores - minimal volume 2019 biopsy pathology - No cancer seen on 12 core biopsy Imaging - 01/02 MRI PI-RADS 3, 1.1 cm lesion left lateral side, 35 cc prostate PSA 07/03 7.1, 10/03 9, 06/04 3.6, 10/04 3.0, 02/03 3.8, 06/05 3.7, 01/04 4.3, 05/06 3.9 8% finasteride, 04/07 4.6 PFSH Medical History Chemical burn Back pain, lumbosacral Appendicitis Preop exam for internal medicine Anxiety Vitamin D deficiency Overweight (BMI 25.0-29.9) Vitamin B12 deficiency Insomnia Alcohol abuse Hypertension Hypercholesterolemia Prostate cancer Surgical History History of prostate biopsy Family History Father No problems noted. 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 Cognitive needs: No Hearing needs: No Vision needs: No Review of Systems Const All systems reviewed & are unremarkable except as noted in HPI and below Reports no additional complaints Resp Reports no additional complaints GI Reports no additional complaints Reports as per HPI Musc Reports no additional complaints Physical Exam Telemedicine evaluation Appropriate responses Regular breathing rate and rhythm HEENT Head: Yes normal to inspection Ears: hearing grossly normal bilaterally Eyes General: appearance normal, both eyes and all related structures Neck Neck: Yes normal visual inspection Chest Chest palpation & inspection: normal inspection of the chest Resp Effort & Inspection: normal respiratory effort and able to speak in complete sentences Telehealth Telehealth Telehealth Platform: [facility] Location of provider rendering services: practice address Location of patient: address on file Patient Identification confirmed using: Name, : Yes Telehealth method: video Patient verbally consented to treatment: Yes Patient verbally consented to billing insurance company: Yes Patient informed of any privacy concerns related to visit: Yes Minutes spent on Phone/Video with Pt.: 15 Assessment & Plan Assessment & Plan (1) Prostate cancer: Comment: Initial biopsy low-grade 2/ core, repeat biopsy 2015, radiotherapy 2023 Code(s): C61 - Malignant neoplasm of prostate Category: Medical Plan Six-month follow-up PSA Orders: Orders Prostate Specific Antigen 6 Months C61 - Malignant neoplasm of prostate Testosterone, Total 6 Months C61 - Malignant neoplasm of prostate Medications: Discontinued finasteride Discontinued Reason: Doctor's Order 5 mg PO DAILY 90 days 90 tabs 2RF N13.8 - Other obstructive and reflux uropathy, N40.1 - Benign prostatic hyperplasia with lower urinary tract symptoms, R33.9 - Retention of urine, unspecified, R97.20 - Elevated prostate specific antigen [PSA] Patient Instructions: This note is constructed using voice recognition software. While every effort has been made to ensure accuracy furnace packer errors may have been included. Imaging studies, laboratory and physical exam results were discussed and reviewed in detail. No major barriers to patient understanding were identified. An opportunity to ask questions regarding the treatment plan was provided. All questions were answered. The patient expressed understanding and agreement with the above treatment plan. The patient is aware they should contact our office by phone for worsening of their current condition or the appearance of new urologic symptoms. Compliance is encouraged with any medications and followup testing that is ordered. It is a privilege to participate in the urologic care of your patient. If you have any questions or concerns regarding treatment for the above conditions, or other urologic issues, please do not hesitate to contact me. The office telephone contact is [phone]. Sincerely, Dr Cristhian Shen MD, [facility] - Urology Compassionate Specialist Care for the Genitourinary System Coding Level of Care Code Tele Est Pt Level 3 (14881) Complex EM visit Add On G2211 Diagnoses Prostate cancer C61
== END 2024-12-09 14:26 | disposition home or self-care (01) ==
LOC: HO.HUSH 13:53
PROVIDERS: PCP Internal Medicine; Visit Provider Urology
DX: C61 Malignant neoplasm of prostate (principal)
CPT/HCPCS: 99213; G2211

== ENCOUNTER → 2024-12-09 13:53 | Outpatient (BNVA) | payer MEDICARE, SELFPAY | PROVIDERS: PCP Internal Medicine; Visit Provider Urology ==

== ENCOUNTER 2025-01-07 11:30 | Outpatient (AMB) | payer MEDICARE, SELFPAY ==
[2025-01-07 11:32] VITALS: BP 164/98; PULSE 74; RESP 18; TEMP 36.5; O2SAT 99; BMI 25.4
--- NOTE | 2025-01-07 11:32 | A.OFFPC_ITS ---
Vital Signs 01/07/25 11:32 Height 5 ft 7 in Weight 162 lb BMI 25.4 BP 164/98 H Blood Pressure Location Lt brachial Position Sitting Respiration 18 Pulse 74 Pulse Source Pulse Oximeter Temp 97.7 F Temp Source Oral Pulse Oximetry (%) 99 Oxygen Delivery Method Room Air Intake Visit Reasons: Hemorrhoids Patient Care Specialist Required: No Accompanied by: Spouse Allergies No Known Allergies Allergy (Verified 01/07/25 11:46) Medication List - Last Reconciled 01/07/25 by GARTH Freeman cholecalciferol (vitamin D3) 25 mcg PO DAILY 90 days cyanocobalamin (vitamin B-12) 1,000 mcg PO DAILY fenofibrate 160 mg PO DAILY folic acid 1 mg PO DAILY lisinopril 40 mg PO DAILY 90 days omega-3 fatty acids-fish oil 300-1,000 mg 1 cap PO DAILY 90 days Tobacco use date assessed: 01/07/25 Fall risk assessment: No Falls in past year Last assessed Fall Risk: 01/07/25 Dental Screening Dental Screen Date: 01/07/25 Did you have a dental visit in the last 12 months?: Yes Did you have a dental problem in the last 6 months where you did not have access to dental care?: No Was dental information given to patient?: Patient has dentist HPI Hemorrhoids HPI Details The patient is a 69 year old male presenting for evaluation of hemorrhoids Reports that he has been having hemorrhoids for 2-3 weeks so far Reports that his hemorrhoid was much bigger and has gone down some Reports that this cause him to has been very uncomfortable for him The patient reports that he was constipated but has been moving his bowels more often now Reports that he finished radiation treatment for prostate cancer about 6 weeks ago [facility] Medical History Chemical burn Back pain, lumbosacral Appendicitis Preop exam for internal medicine Anxiety Vitamin D deficiency Overweight (BMI 25.0-29.9) Vitamin B12 deficiency Insomnia Alcohol abuse Hypertension Hypercholesterolemia Prostate cancer Surgical History History of prostate biopsy Family History Father No problems noted. Mother Diabetes Brother Diabetes Social History Household Members: Spouse Housing: Apartment Alcohol intake: current Alcohol intake frequency: former alcohol drinker Comment: 1 day a week 5-6 drinks Patient Tobacco Use Status: Never used Tobacco Tobacco use type: Cigarette e-Cigarette/Vaping Use: Never Used Second Hand Smoke Exposure: No service: No Current occupational status: employed Current occupation: [employer] Cognitive needs: No Hearing needs: No Vision needs: No Questionnaire PHQ-9 Over the last 2 weeks, how often have you been bothered by any of the following problems? 1. Little interest or pleasure in doing things: not at all 2. Feeling down, depressed, or hopeless: not at all 3. Trouble falling or staying asleep, or sleeping too much: not at all 4. Feeling tired or having little energy: not at all 5. Poor appetite or overeating: not at all 6. Feeling bad about yourself - or that you are a failure or have let yourself or your family down: not at all 7. Trouble concentrating on things, such as reading the newspaper or watching television: not at all 8. Moving or speaking so slowly that other people could have noticed. Or the opposite - being so fidgety or restless that you have been moving around a lot more than usual: not at all 9. Thoughts that you would be better off or of hurting yourself in some way: not at all Total score: 0 Depression Screening Interpretation: Negative Depression Screening Done: Yes 91093 - PHQ-9 Billing: Yes Source: Developed by Drs. Bhavik Schultz, Amelia Darby, Diomedes Burnham and colleagues, with an educational aidan from [employer]. Thrive Questionnaire Date Thrive assessed: 03/19/24 I am a: Patient What is your living situation today?: I have a steady place to live Within the past 12 months, did the food you bought not last and you didn't have the money to get more?: Never true Within the past 12 months, did you worry whether your food would run out before you got money to buy more?: Never true Do you have trouble paying for medicines?: No Do you have trouble getting transportation to medical appointments?: No Do you have trouble paying your heating and electricity bill?: No Do you have trouble taking care of your child, family member or friend?: No Do you have trouble with day-to-day activities such as bathing, preparing meals, shopping, managing finances, etc.?: No Are you currently unemployed and looking for a job?: No Are you interested in more education?: No Please select the resources that you would like help with: None Currently or been in a relationship where the following occur: No concerns reported THRIVE Score: 0 AUDIT C Alcohol Use Questionnaire (AUDIT-C) 1. How often do you have a drink containing alcohol?: 2-4 times a month 2. How many drinks containing alcohol do you have on a typical day when you are drinking?: 1 or 2 3. How often do you have six or more drinks on one occasion?: Never Total Score: 2 GAMALIEL-7 AMB Questionnaire GAMALIEL-7 Date GAMALIEL - 7 assessed: 01/07/25 Feeling nervous, anxious, or on edge: 0 = Not at all Not being able to stop or control worryin = Not at all Worrying too much about different things: 0 = Not at all Trouble relaxin = Not at all Being so restless that it is hard to sit still: 0 = Not at all Becoming easily annoyed or irritable: 0 = Not at all Feeling afraid as if something awful might happen: 0 = Not at all Total GAMALIEL-7 score (0-4 normal; 5-9 mild; 10-14 moderate; 15-21 severe): 0 Source: Developed by Drs. Bhavik Schultz, Amelia Darby, Diomedes Burnham and colleagues, with an educational aidan from [employer]. GAMALIEL-7 Assessment Billing GAMALIEL-7 Assessment Tool: GAMALIEL-7 Assessment 66116 Review of Systems ENT Denies sore throat Card Denies chest pain, Denies leg edema and Denies lightheadedness Resp Denies cough and Denies hemoptysis GI Denies abdominal pain, Denies melena, Denies hematochezia, Reports constipation, Denies diarrhea, Denies vomiting and Reports other (anal pain) Denies dysuria, Denies urinary frequency and Denies urinary urgency Physical exam (Primary Care) Vital Signs: Last Vital Signs Temp 97.7 F 01/07/25 11:32 Pulse 74 01/07/25 11:32 Resp 18 01/07/25 11:32 BP 164/98 H 01/07/25 11:32 Pulse Ox 99 01/07/25 11:32 Oxygen Delivery Method Room Air 01/07/25 11:32 BMI result Body Mass Index 25.4 Tobacco/Smoking Status: Tobacco use Status Tobacco use date assessed 01/07/25 01/07/25 11:42 Patient Tobacco Use Status Never used Tobacco 01/07/25 11:42 Tobacco use type Cigarette 01/07/25 11:42 e-Cigarette/Vaping Use Never Used 01/07/25 11:42 PHQ-9: PHQ-9 Score PHQ-9: Total score 0 01/07/25 11:51 Depression Screening Interpretation: Negative Thrive Assessment: Date of Thrive Assessment Date Thrive assessed 03/19/24 01/07/25 11:42 Currently or been in a relationship where the following occur: No concerns reported Const General: healthy appearing, no acute distress, alert and awake Nutritional Appearance: well nourished HENMT Ears: external ears normal General nose exam: Normal external nose present Eyes Conjunctivae: conjunctivae normal Sclerae: sclerae normal Neck Neck: Yes no lymphadenopathy and Yes no JVD Thyroid: Thyroid normal Carotids: no bruits Resp Effort & Inspection: normal respiratory effort and not tachypneic Auscultation: no crackles, no rales, no rhonchi and no wheezes Cardio Rate: regular rate Rhythm: regular rhythm Heart sounds: no murmurs and normal S1 and S2 GI Palpation (GI): Soft to palpation, nontender, no hepatomegaly and no splenomegaly Auscultation: normal bowel sounds Rectal Exam - Male: Yes External hemorrhoid(s) present (small soft), No Anal fissure(s) present and Yes tenderness Coding Level of Care Code Est Pt Level 3 (17024) Diagnoses Hemorrhoids, unspecified hemorrhoid type K64.9 Hemorrhoid type: unspecified Constipation, unspecified constipation type K59.00 Constipation type: unspecified constipation type Additional Codes GAMALIEL-7 Assessment Billing - GAMALIEL-7 Assessment Tool: GAMALIEL-7 Assessment 03749 ([id number]) PHQ-9 - 51057 - PHQ-9 Billing: Yes ([id number]) Time Spent (min) 32 Assessment & Plan Assessment & Plan (1) Hemorrhoids: Code(s): K64.9 - Unspecified hemorrhoids Category: Medical Qualifiers: Hemorrhoid type: unspecified Qualified Code(s): K64.9 - Unspecified hemorrhoids Plan: small, soft external hemorrhoids tender to touch. Lidocaine 5% (hemorrhoidal relieft) topical BID, With becki 50% (Hemorrhoidal Hygiene) topical pad BID-TID PRN ordered. Refrain from straining or sitting on toilet for extensive periods. (2) Constipation: Code(s): K59.00 - Constipation, unspecified Category: Medical Qualifiers: Constipation type: unspecified constipation type Qualified Code(s): K59.00 - Constipation, unspecified Plan: Increased dietary fiber and fluids intake. Colace 100 mg b.i.d. and MiraLax 17 g daily ordered Medications: New witch becki 50% (Hemorrhoidal Hygiene) 1 pad topical BID-TID PRN 100 ea 1RF skin cleansing 30 days K64.9 - Unspecified hemorrhoids docusate sodium (Colace) 100 mg PO BID 60 caps 2RF K59.00 - Constipation, unspecified polyethylene glycol 3350 (Miralax) 17 grams PO DAILY 238 grams 0RF K59.00 - Constipation, unspecified lidocaine 5% (Hemorrhoidal Relief) 1 appl topical BID PRN 15 grams 3RF pain 30 days K64.9 - Unspecified hemorrhoids
== END 2025-01-07 12:17 | disposition home or self-care (01) ==
LOC: HO.HMCH 11:31
PROVIDERS: PCP Internal Medicine
DX: K64.9 Unspecified hemorrhoids (principal); K59.00 Constipation, unspecified

== ENCOUNTER → 2025-01-07 11:30 | Outpatient (BNVA) | payer MEDICARE, SELFPAY | PROVIDERS: PCP Internal Medicine | DX: K64.9 Unspecified hemorrhoids (principal); K59.00 Constipation, unspecified | CPT/HCPCS: 96127; 99212 ==

== ENCOUNTER 2025-03-20 10:47 | Outpatient (AMB) | payer MEDICARE, SELFPAY ==
[2025-03-20 11:01] VITALS: BP 146/86; PULSE 79; O2SAT 96; BMI 25.2
--- NOTE | 2025-03-20 11:01 | A.OFFVIS_ITS ---
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 Shen radiation Oncology Dr. Gardner, Gastroenterology Dr. Fontanez. BP at home nis good [facility] Medical History Chemical burn Back pain, lumbosacral Appendicitis Preop exam for internal medicine Anxiety Vitamin D deficiency Overweight (BMI 25.0-29.9) Vitamin B12 deficiency Insomnia Alcohol abuse Hypertension Hypercholesterolemia Prostate cancer Surgical History History of prostate biopsy Family History Father No problems noted. 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[employer] Cognitive needs: No Hearing needs: No Vision needs: No Questionnaire Medicare Wellness Checkup [age] What gender do you identify with?: male During the past 4 weeks, how much have you been bothered by emotional problems such as feeling anxious, depressed, irritable, sad or downhearted, and blue?: not at all During the past 4 weeks, has your physical & emotional health limited your social activities with family, friends, neighbors, or groups?: not at all During the past 4 weeks, how much bodily pain have you generally had?: no pain During the past 4 weeks, was someone available to help you if you needed & wanted help?: no, not at all During the past 4 weeks, what was the hardest physical activity you could do for at least 2 minutes?: moderate Can you get to places out of walking distance without help? (For eg., can you travel alone on buses, taxis or drive your car?): Yes Can you go shopping for groceries or clothes without someone's help?: Yes Can you prepare your own meals?: Yes Can you do your housework without help?: Yes Because of any health problems, do you need the help of another person with your personal care needs such as eating, bathing, dressing or getting around the house?: Yes Can you handle your own money without help?: Yes During the past 4 weeks, how would you rate your health in general?: excellent During the past 4 weeks how have things been going for you?: pretty well Are you having difficulties driving your car?: no Do you always fasten your seat belt when you are in a car?: yes, sometimes During past 4 weeks, have you been bothered by the following: never: Falling or dizzy when standing up, Sexual problems?, Trouble eating well?, Teeth or denture problems?, Problems using the telephone? and Tiredness or fatigue? Have you fallen 2 or more times in the past year?: No Are you afraid of falling?: No Are you a smoker?: no During the past 4 weeks, how many drinks of wine, beer, or other alcoholic beverages did you have?: 1 drink or less per week Do you exercise for about 20 minutes 3 or more times a week?: yes, all the time Have you been given information to help with the following?: no: Hazards in your house that might hurt you? and no: Keeping track of your medications? How often do you have trouble taking medicines the way you have been told to take them?: I do not have to take medicine How confident are you that you can control & manage most of your health problems?: very confident What is your race?: or origin or descent PHQ-9 Over the last 2 weeks, how often have you been bothered by any of the following problems? 1. Little interest or pleasure in doing things: not at all 2. Feeling down, depressed, or hopeless: not at all 3. Trouble falling or staying asleep, or sleeping too much: not at all 4. Feeling tired or having little energy: not at all 5. Poor appetite or overeating: not at all 6. Feeling bad about yourself - or that you are a failure or have let yourself or your family down: not at all 7. Trouble concentrating on things, such as reading the newspaper or watching television: not at all 8. Moving or speaking so slowly that other people could have noticed. Or the opposite - being so fidgety or restless that you have been moving around a lot more than usual: not at all 9. Thoughts that you would be better off or of hurting yourself in some way: not at all Total score: 0 Depression Screening Interpretation: Negative Depression Screening Done: Yes 73780 - PHQ-9 Billing: Yes Source: Developed by Drs. Bhavik Schultz, Amelia Darby, Diomedes Burnham and colleagues, with an educational aidan from [email or web address]. Review of Systems Const Denies poor appetite and Denies weakness Eyes Denies no additional complaints ENT Reports Normal hearing present, Denies dizziness, Denies nasal congestion, Denies tinnitus and Denies sore throat Card Denies chest pain, Denies syncope, Denies rapid heart rate and Denies dyspnea Resp Denies cough and Denies dyspnea GI Denies change in stool character, Reports constipation, Denies diarrhea, Denies nausea and Denies vomiting Denies dysuria and Denies urinary frequency Neuro Reports Normal hearing present, Denies confusion, Denies dizziness, Denies syncope and Denies weakness Psych Denies confusion Physical Exam Vital Signs: Last Vital Signs Pulse 79 03/20/25 11:01 BP 146/86 H 03/20/25 11:01 Pulse Ox 96 03/20/25 11:01 Oxygen Delivery Method Room Air 03/20/25 11:01 BMI result Body Mass Index 25.2 Const General: No confusion Orientation/consciousness: No confusion HEENT Head: Yes normocephalic Ears: external ears normal and TM's normal bilaterally Face and sinus: Yes normal facial exam Mouth: moist mucous membranes Throat: Yes tonsils normal Eyes Conjunctivae: conjunctivae normal Pupils: Equal, round and reactive pupils present and Pupil accommodation reflex normal Direct Ophthalmoscopy: normal light reflex Neck Neck: No lymphadenopathy Thyroid: Thyroid normal Chest Chest palpation & inspection: normal inspection of the chest Resp Effort & Inspection: normal respiratory effort and no audible wheezes Auscultation: clear to auscultation bilaterally, no crackles, no wheezes and lung sounds not diminished Cardio Rate: regular rate Rhythm: regular rhythm Peripheral pulses: radial pulses present and dorsalis pedis present GI Other: declined rectal Palpation (GI): no masses Auscultation: normal bowel sounds and normoactive bowel sounds Rectal Exam - Male: Yes deferred Skin General skin exam: no rashes or lesions noted Rashes: no rashes Neuro General: No confusion Cranial nerves: Yes Equal, round and reactive pupils present and Yes Normal hearing present Cognition (Neuro): normal cognition Gait exam (Neuro): Normal gait present Motor exam (neuro): 5/5 motor strength present throughout Deep tendon reflexes (DTR's): Right brachioradialis reflex intensity grade: 2+, Left brachioradialis reflex intensity grade: 2+, Right patellar reflex intensity grade: 2+ and Left patellar reflex intensity grade: 2+ Extrem General: No edema Assessment & Plan Assessment & Plan (1) Medicare annual wellness visit, subsequent: Code(s): Z00.00 - Encounter for general adult medical examination without abnormal findings Plan: Patient is advised to eat healthy, keep well hydrated, keep active and have adequate sleep. (2) Prostate cancer: Comment: Initial biopsy low-grade 2/12 core, repeat biopsy 2015, radiotherapy 2023 Code(s): C61 - Malignant neoplasm of prostate Plan: Continue to follow-up with urology and on surveillance testing (3) Impaired glucose tolerance: Code(s): R73.02 - Impaired glucose tolerance (oral) Plan: Decrease the amount of carbohydrate intake, pasta, bread, rice and potatoes are all sugar and that is aside from all the sweet stuff, remember that fruits are g ood but they are Sweet also. Patient needs blood work (4) Hypertension: Code(s): I10 - Essential (primary) hypertension Qualifiers: Hypertension type: essential hypertension Qualified Code(s): I10 - Essential (primary) hypertension Plan: Continue with blood pressure medication. Decrease salt intake and exercise on lisinopril 40 mg once a day (5) Hypercholesterolemia: Code(s): E78.00 - Pure hypercholesterolemia, unspecified Plan: Avoid fried foods, chicken skin, eggs, butter margarine, pastries and meat. Be it pork or beef they have a lot of cholesterol LDL goal of less than 130 and triglyceride of less than 150 on fenofibrate (6) BPH w urinary obs/LUTS: Code(s): N40.1 - Benign prostatic hyperplasia with lower urinary tract symptoms; N13.8 - Other obstructive and reflux uropathy Plan: Continue to follow-up with urology and continue to monitor (7) Constipation: Code(s): K59.00 - Constipation, unspecified Qualifiers: Constipation type: unspecified constipation type Qualified Code(s): K59.00 - Constipation, unspecified Plan: Three rules for constipation 1. Diet need to have a high fiber diet less of meat 2. Increase oral fluids 3. Exercise (8) Hemorrhoids: Code(s): K64.9 - Unspecified hemorrhoids Qualifiers: Hemorrhoid type: unspecified Qualified Code(s): K64.9 - Unspecified hemorrhoids Plan: Three rules for constipation 1. Diet need to have a high fiber diet less of meat 2. Increase oral fluids 3. Exercise Plan History of Present Illness The patient is a 69-year-old male presenting for an annual well visit with a complex medical history including prostate cancer under active surveillance with his urologist. He has been managing essential hypertension since 2016 with Lisinopril 40 mg once daily. His hypercholesterolemia is controlled with the aim of maintaining LDL levels below 130 mg/dL, utilizing fenofibrate for triglyceride management below 150 mg/dL. With a history of impaired glucose tolerance recognized in 2016, the patient acknowledges the need for further laboratory evaluations to maintain vigilance. His Benign Prostatic Hyperplasia continues to have oversight during prostate cancer management, though recent appointments have noted it remains stable. Additional concerns include a Generalized Anxiety Disorder that is monitored but not problematic during this well visit. Hemorrhoids resolved in December 2023 required random check-ins only when symptoms presented, like the constipation that persists yet is under management. Scheduled follow-ups with his [facility] of care?urology, radiation oncology, and gastroenterology?ensure ongoing comprehensive assessment. His preventative measures included a colonoscopy in 2017. Previous blood work conducted in March 2024 needs reviewing soon to align with his wellness strategy. Health Maintenance - Monitor LDL to maintain goal of <130 mg/dL. - Monitor triglycerides to maintain goal of <150 mg/dL. - Scheduled follow-up with urology for prostate cancer surveillance. - Past colonoscopy conducted in 2017. - Blood work performed last in March 2024; further work pending. - Lifestyle management through continued medication and diet. Social History Review of Systems - Gastrointestinal: Reports constipation, previously managed hemorrhoids. - Endocrine: Reports impaired glucose tolerance. - Cardiovascular: Reports hypertension. - Genitourinary: Reports prostate cancer under active surveillance, BPH. Physical Exam General: Cooperative, healthy appearing, comfortable, no acute distress and well developed Orientation: Patient oriented x3 Limitations: No limitations Head: Normal to inspection Ears: Hearing grossly normal bilaterally Nose: Normal external nose present Face and sinus: Normal facial exam Eyes: Appearance normal, both eyes and all related structures Neck: Normal visual inspection and Yes full ROM Respiratory: Normal respiratory effort and able to speak in complete sentences. Clear to auscultation bilaterally Cardiovascular: Regular rate and rhythm. Normal S1 and S2 GI: Normal to inspection. Soft to palpation and nontender Skin: No rashes or lesions noted Neuro: Patient oriented x3 Extremities: Normal to inspection Results Plan Ongoing management for prostate cancer through regular urology follow-ups is emphasized within the patient's care routine. Essential Hypertension benefits from ongoing treatment with Lisinopril 40 mg, achieving regulated blood pressure. Hypercholesterolemia management targets LDL and triglyceride control, monitored closely through medication, notably fenofibrate. Impaired glucose tolerance will follow updates post-blood tests, considering March 2024 results as a reference for actionable decisions. Constipation and hemorrhoid management aligns with symptom relief strategies recommended post-review. Interdisciplinary care reflects continued monitoring emphasizing checks within urology and other consults. Patient was informed and verbally consented to the use of an ambient scribe for clinic note documentation during this visit. Discussion Notes During the consultation, I reiterated the importance of continuing prostate cancer surveillance with urology, supporting proactive measures taken toward managing Essential Hypertension via Lisinopril therapy. Hypercholesterolemia approaches were addressed by focusing on achieving LDL and triglyceride targets, supported by current pharmacotherapy. Monitoring impaired glucose tolerance stood out as necessary, triggering future laboratory assessments for updated baselines. Coordinated care through his spectrum of specialists insured comprehensive oversight, interpreted in concert with recent test results. Follow-ups are deemed essential for maintaining his health regimen, ensuring that tailored interventions remain at the forefront of managing symptoms and conditions listed. Patient Instructions - Continue taking Lisinopril 40 mg daily for blood pressure control. - Maintain current cholesterol medications to meet LDL and triglyceride goals. - Undergo scheduled blood work to monitor glucose levels. - Follow dietary recommendations to help manage constipation. - Attend regular follow-ups with your specialist team. - Pay attention to any changes in your health and report them promptly. Orders: Orders Free T4 (Free Thyroxine) Today R73.02 - Impaired glucose tolerance (oral) Thyroid Stimulating Hormone Today R73.02 - Impaired glucose tolerance (oral) Comprehensive Met. Panel Today R73.02 - Impaired glucose tolerance (oral) Lipid Panel Today E78.00 - Pure hypercholesterolemia, unspecified, R73.02 - Impaired glucose tolerance (oral) Vitamin B12 and Folate Today R73.02 - Impaired glucose tolerance (oral) Hemoglobin A1c Today R73.02 - Impaired glucose tolerance (oral) Complete Blood Count Auto Diff Today R73.02 - Impaired glucose tolerance (oral) Quality Reporting (2019) Depression/Bipolar (159/160/161/177) PHQ-9: Total score: 0 Coding Level of Care Code Medicare Subsequent (G0439) Diagnoses Medicare annual wellness visit, subsequent Z00.00 Prostate cancer C61 Impaired glucose tolerance R73.02 Essential hypertension I10 Hypertension type: essential hypertension Hypercholesterolemia E78.00 BPH w urinary obs/LUTS N40.1; N13.8 Constipation, unspecified constipation type K59.00 Constipation type: unspecified constipation type Hemorrhoids, unspecified hemorrhoid type K64.9 Hemorrhoid type: unspecified Additional Codes PHQ-9 - 69432 - PHQ-9 Billing: Yes ([id number])
== END 2025-03-20 11:43 | disposition home or self-care (01) ==
LOC: HO.HMCH 10:48
PROVIDERS: PCP Internal Medicine; Visit Provider Internal Medicine
DX: Z00.00 Encounter for general adult medical examination without abnormal findings (principal); C61 Malignant neoplasm of prostate; R73.02 Impaired glucose tolerance (oral); I10 Essential (primary) hypertension; E78.00 Pure hypercholesterolemia, unspecified; N40.1 Benign prostatic hyperplasia with lower urinary tract symptoms; N13.8 Other obstructive and reflux uropathy; K59.00 Constipation, unspecified; K64.9 Unspecified hemorrhoids

== ENCOUNTER → 2025-03-20 10:47 | Outpatient (BNVA) | payer MEDICARE, SELFPAY | PROVIDERS: PCP Internal Medicine; Visit Provider Internal Medicine | DX: Z00.00 Encounter for general adult medical examination without abnormal findings (principal); C61 Malignant neoplasm of prostate; R73.02 Impaired glucose tolerance (oral); I10 Essential (primary) hypertension; E78.00 Pure hypercholesterolemia, unspecified; N40.1 Benign prostatic hyperplasia with lower urinary tract symptoms; N13.8 Other obstructive and reflux uropathy; K59.00 Constipation, unspecified; K64.9 Unspecified hemorrhoids | CPT/HCPCS: 96127 ==

== ENCOUNTER 2025-05-27 09:09 | Outpatient (REF) | payer MEDICARE, SELFPAY ==
[2025-05-27 10:54] LABS: Prostate Specific Antigen < 0.10 ng/mL (<0.05-4.0)
== END 2025-05-27 09:10 | disposition home or self-care (01) ==
LOC: HO.LAB 09:09
PROVIDERS: Visit Provider Urology
DX: C61 Malignant neoplasm of prostate (principal); Z12.5 Encounter for screening for malignant neoplasm of prostate
CPT/HCPCS: 36415; 84153; 84403

== ENCOUNTER 2025-06-09 09:58 | Outpatient (AMB) | payer MEDICARE, SELFPAY ==
--- NOTE | 2025-06-09 10:03 | A.OFFVIS_ITS ---
Intake Visit Reasons: 6M follow up/ PSA/Testo Intake Note: Patient is present for: follow up Urology Medication:VITAMIN B12 Blood Thinner:NONE Industrial Machinery Mechanic Required: No Industrial Machinery Mechanic Services: Industrial Machinery Mechanic Present Accompanied by: Spouse Allergies No Known Allergies Allergy (Verified 06/09/25 10:04) HPI Comments Details: Nicolas is a pleasant Singaporean-speaking male. He is a patient of Dr. Stoll. He is seen for the following urologic conditions - prostate cancer Singaporean translation provided today in office by qualified biomedical equipment support specialist Has testosterone recovery 12/09 PSA <0.1, T 15, 06/08 <0.1 155 Hot flashes have resolved Minimal issues with urination Continue q six-month follow-up Prostate cancer: Completed external beam radiation with Dr. Gardner Radiation completed 08/07 Completed hypofractionated radiation in setting of SpaceO[facility] with Dr. Gardner. Ended up with SpaceOAR placed through Interventional Radiology down in [facility]. Had 2[facility]. MDX prostate score performed. 50% chance of adverse pathology at prostatectomy. 06/06 Histologic type: Acinar adenocarcinoma - multi core grade group 2 [place] score:3+3=6 (parts C, F, G, H), 3+4=7 (parts A, D) Grade group: 1 (parts C, F, G, H), 2 (parts A, D) Number cores positive: 6 Total number of cores: 15 % of tissue involved: 15% of all tissue examined Periprostatic fat inv.: Not identified Seminal vesicle inv.: Not identified Perineural inv.: Present LVI: Not identified Prostate cancer low-grade prostate cancer 2017 management active surveillance Initial diagnosis Dr. Del Cid 2016 Initial PSA 2016 Biopsy pathology - Candi 3+3 2/12 cores - minimal volume 2019 biopsy pathology - No cancer seen on 12 core biopsy Imaging - 01/02 MRI PI-RADS 3, 1.1 cm lesion left lateral side, 35 cc prostate PSA 07/03 7.1, 10/03 9, 06/04 3.6, 10/04 3.0, 02/03 3.8, 06/05 3.7, 01/04 4.3, 05/06 3.9 8% finasteride, 04/07 4.6 PFSH Medical History Chemical burn Back pain, lumbosacral Appendicitis Preop exam for internal medicine Anxiety Vitamin D deficiency Overweight (BMI 25.0-29.9) Vitamin B12 deficiency Insomnia Alcohol abuse Hypertension Hypercholesterolemia Prostate cancer Surgical History History of prostate biopsy Family History Father No problems noted. 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 Cognitive needs: No Hearing needs: No Vision needs: No Review of Systems Const Denies chills and Denies fever(s) Card Reports no additional complaints and Denies syncope Resp Denies cough GI Denies abdominal pain and Denies heartburn Reports as per HPI and Denies change in libido Neuro Denies syncope Psych Denies change in libido Endo Denies change in libido Physical Exam Const General: cooperative, healthy appearing, comfortable and no acute distress Orientation/consciousness: patient oriented x3 HEENT Face and sinus: Yes normal facial exam Mouth: moist mucous membranes Neck Neck: Yes normal visual inspection, Yes full ROM and Yes trachea midline Chest Chest palpation & inspection: normal inspection of the chest Resp Effort & Inspection: normal respiratory effort, able to speak in complete sentences and no respiratory distress GI Inspection: Yes normal to inspection Back/Spine/Pelvis Cervical Spine: normal cervical lordosis Thoracic/Lumbar Spine: thoracic and lumbar spine normal to inspection Skin General skin exam: no rashes or lesions noted Neuro General: patient oriented x3, gait normal, tone normal and moves all extremities Extrem General: Yes normal to inspection and Yes capillary refill normal Assessment & Plan Assessment & Plan (1) Prostate cancer: Comment: Initial biopsy low-grade 2/12 core, repeat biopsy 2015, radiotherapy 2023 Code(s): C61 - Malignant neoplasm of prostate Category: Medical Plan Six-month follow-up lab work Orders: Orders Prostate Specific Antigen 6 Months C61 - Malignant neoplasm of prostate Testosterone, Total 6 Months C61 - Malignant neoplasm of prostate Patient Instructions: This note is constructed using voice recognition software. While every effort has been made to ensure accuracy assistant store director errors may have been included. Imaging studies, laboratory and physical exam results were discussed and reviewed in detail. No major barriers to patient understanding were identified. An opportunity to ask questions regarding the treatment plan was provided. All questions were answered. The patient expressed understanding and agreement with the above treatment plan. The patient is aware they should contact our office by phone for worsening of their current condition or the appearance of new urologic symptoms. Compliance is encouraged with any medications and followup testing that is ordered. It is a privilege to participate in the urologic care of your patient. If you have any questions or concerns regarding treatment for the above conditions, or other urologic issues, please do not hesitate to contact me. The office telephone contact is [phone]. Sincerely, Dr Cristhian Shen MD, [facility] - Urology Compassionate Specialist Care for the Genitourinary System Coding Level of Care Code Est Pt Level 3 (04608) Complex EM visit Add On G2211 Diagnoses Prostate cancer C61
--- OUTSIDE RECORDS SUMMARY | 2025-06-09 10:41 | XMS_ITS | Patient Health Record ---
Author Organization [facility] Address [address] [place] [address] Care Team Providers Care Stenciling Machine Tender Name Role Phone Radha Stoll MD Primary Care Provider Jung Blum Jr Unavailable Reason For Referral No Information Medications Medication SIG (Take, Route, Frequency, Duration) Notes Start Date End Date Status Vitamin D3 1000 UNIT TAKE ONE TABLET BY MOUTH EVERY DAY Oral for 30 Active Vitamin B-12 1000 MCG TAKE 1 TABLET YARITZA Y Oral for 30 Active Folic Acid 1 MG TAKE 1 TABLET BY DANIELA TH ONCE A DAY Oral for 30 Active Lisinopril 40 MG TAKE ONE TABLET BY M OUTH EVERY DAY Oral for 30 Active Zntgd-3-djzy Ethyl Esters 1 GM TAKE 1 CAPSULE DAILY WITH A MEAL Oral for 30 Active Immunizations Vaccine Route Administration Date Status Comme nts Influenza Unknown 06/30/2020 Refused Social History Tobacco Use: Social History Observation Description Date Details (start date - stop date) Former Smoker NA - NA Tobacco Use/Smoking Question Answer Notes Patient is a former smoker How long has it been since you last smoked? > 10 years Alcohol Screen Question Answer Notes Did you have a drink contain ing alcohol in the past year? Yes How often did you have a dri nk containing alcohol in the past year? 2 to 4 times a month (2 points) How many drinks did you have on a typical day when you were drinking in the past year? 5 or 6 drinks (2 points) Points 4 Interpretation Positive Section Notes: drinks beers sunday Problems Problem Type SNOMED Code ICD Code Onset Dates Problem Status W/U Status Risk Notes Problem 141137311 Colon cancer screening (Z12.11) Active confirmed Problem 84562758 Encounter for ot her preprocedural examination (Z01.818) Active confirmed Problem 230378458 Gastroesophageal reflux disease with esophagitis (K21.0) Active confirmed Problem 83114407 Hiatal hernia (K44.9) Active confirmed Problem 958440776 Throat clearing (R68.89) Active confirmed Plan Of Treatment Future Test Test Name Order Date COLONOSCOPY 05/22/2018 Insurance Providers Payer Name Payer Address Payer Phone Subscriber Number Group Number Insured Name Patient Relationship to Insured Coverage Start Date Coverage End Date MEDICARE OF [place] [address] [place] [address] [id number] NIKOLAY DIEGO Self - patient is the insured [employer] ATT[employer] CLAIMS [address] [place] [address] [id number] NIKOLAY DIEGO Self - patient is the insured Medical (General) History Medical History History ICD Code gastroesophageal reflux dise [facility], upper endoscopy February 2011 showing grade 1 esophagitis. hypertension elevated cholesterol elevated PSA post nasal drip colonoscopy 07/05/18, normal examination, ten-year followup recommended
== END 2025-06-09 10:30 | disposition home or self-care (01) ==
LOC: HO.HUSH 09:58
PROVIDERS: PCP Internal Medicine; Visit Provider Urology
DX: C61 Malignant neoplasm of prostate (principal)
CPT/HCPCS: 99213; G2211

== ENCOUNTER → 2025-06-09 09:58 | Outpatient (BNVA) | payer MEDICARE, SELFPAY | PROVIDERS: PCP Internal Medicine; Visit Provider Urology | DX: C61 Malignant neoplasm of prostate (principal) | CPT/HCPCS: 99212 ==

== ENCOUNTER 2025-06-19 09:58 | Outpatient (REF) | payer MEDICARE, SELFPAY ==
[2025-06-19 10:28] LABS: MANUAL DIFF FLAG NO
--- OUTSIDE RECORDS SUMMARY | 2025-06-19 10:53 | XMS_ITS | Patient Health Record ---
Author Organization [facility] Address [address] [place] [address] Care Team Providers Care Industrial Relations Worker Name Role Phone Radha Stoll MD Primary Care Provider Jung Blum Jr Unavailable [phone] Reason For Referral No Information Medications Medication [...] OUTH EVERY DAY Oral for 30 Active Mbahb-8-lhcv Ethyl Esters 1 GM TAKE 1 CAPSULE [...] Problem Status W/U Status Risk Notes Problem 734707832 Colon cancer screening (Z12.11) Active confirmed Problem 27325598 Encounter for ot her preprocedural examination (Z01.818) Active confirmed Problem 403105095 Gastroesophageal reflux disease with esophagitis (K21.0) Active confirmed Problem 36070576 Hiatal hernia (K44.9) Active confirmed Problem 419199246 Throat clearing (R68.89) Active confirmed Plan Of Treatment Future Test Test Name Order Date COLONOSCOPY 05/22/2018 Insurance Providers Payer Name Payer Address Payer Phone Subscriber Number Group Number Insured Name Patient Relationship to Insured Coverage Start Date Coverage End Date MED[place]ARE OF [place] [address] [place] [address] [id number] NIKOLAY DIEGO Self - patient is the insured [employer] ATT[employer] CLAIMS [address] [place] [address] [id number] NIKOLAY DIEGO Self - patient is the insured Medical (General) History Medical History History ICD Code gastroesophageal reflux dise [facility] [place], upper endoscopy February 2011 showing grade 1 esophagitis. hypertension elevated cholesterol elevated PSA post nasal drip colonoscopy 07/05/18, normal examination, ten-year followup recommended
[2025-06-19 11:02] LABS: Hematocrit 37.9 % (42.0-52.0); Hemoglobin 13.3 g/dl (14.0-18.0); Imm Gran Abs Auto 0.02 X10*3/uL (0.00-0.03); Imm Gran Pct Auto 0.5 % (0.0-0.4); Lymphocytes Absolute Auto 0.8 X10*3/uL (1.2-4.9); Mean Corpuscular HGB Conc 35.1 g/dl (31.0-36.0); Mean Corpuscular Hemoglobin 30.5 pg (27.0-33.0); Mean Corpuscular Volume 86.9 fL (80.0-98.0); NRBC Abs Auto 0.000 X10*3/uL (0.0-0.012); NRBC Pct Auto 0.0 /100WBC (0.0-0.2); Platelet Count 195 X10*3/uL (160-400); Red Blood Count 4.36 X10*6/uL (4.60-5.80); White Blood Count 3.9 X10*3/uL (4.8-10.8)
[2025-06-19 11:10] LABS: Hemoglobin A1C 140.9999 umol/L; Total Hemoglobin (HGBA1C) 3476.7509 umol/L
[2025-06-19 12:05] LABS: Alanine Aminotransferase 20 U/L (0-40); Albumin Level 4.7 g/dL (3.5-5.0); Alkaline Phosphatase 71 U/L (39-117); Anion Gap 13 (12-20); Aspartate Amino Transferase 28 U/L (5-37); Blood Urea Nitrogen 19 mg/dL (9-16); Calcium 9.4 mg/dL (8.4-10.2); Carbon Dioxide 24 mmol/L (22-29); Chloride 106 mmol/L (96-108); Cholesterol 212 mg/dL (<200); Estimated Glomerular Filt Rate > 60; Free T4 (Free Thyroxine) 0.86 ng/dL (0.71-1.85); HDL Cholesterol 44 mg/dL (>40); Potassium 4.1 mmol/L (3.3-5.1); Sodium 139 mmol/L (135-145); Thyroid Stimulating Hormone 1.58 uIU/mL (0.32-4.0); Total Protein 7.2 g/dL (6.5-8.0); Triglycerides 134 mg/dL (<150)
[2025-06-19 12:35] LABS: Folate 15.0 ng/mL (> or = 4.0); Vitamin B12 538 pg/mL (200-900)
== END 2025-06-19 09:59 | disposition home or self-care (01) ==
LOC: HO.LAB 09:58
PROVIDERS: PCP Internal Medicine; Visit Provider Internal Medicine
DX: R73.02 Impaired glucose tolerance (oral) (principal); E78.00 Pure hypercholesterolemia, unspecified
CPT/HCPCS: 36415; 80053; 80061; 82607; 82746; 83036; 84439; 84443; 85025

== ENCOUNTER 2025-07-06 14:15 | Outpatient (AMB) | payer MEDICARE, SELFPAY ==
[2025-07-06 14:36] VITALS: BP 150/72; PULSE 71; RESP 18; TEMP 36.3; O2SAT 93; BMI 25.3
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
== END 2025-07-06 15:14 | disposition home or self-care (01) ==
LOC: HO.HMCH 14:16
PROVIDERS: PCP Internal Medicine; Visit Provider Internal Medicine
DX: R73.02 Impaired glucose tolerance (oral) (principal); C61 Malignant neoplasm of prostate; I10 Essential (primary) hypertension; E78.00 Pure hypercholesterolemia, unspecified; N40.1 Benign prostatic hyperplasia with lower urinary tract symptoms; N13.8 Other obstructive and reflux uropathy; F41.1 Generalized anxiety disorder

== ENCOUNTER → 2025-07-06 14:15 | Outpatient (BNVA) | payer MEDICARE, SELFPAY | PROVIDERS: PCP Internal Medicine; Visit Provider Internal Medicine | DX: R73.02 Impaired glucose tolerance (oral) (principal); I10 Essential (primary) hypertension; E78.00 Pure hypercholesterolemia, unspecified; N40.1 Benign prostatic hyperplasia with lower urinary tract symptoms; N13.8 Other obstructive and reflux uropathy; C61 Malignant neoplasm of prostate; F41.1 Generalized anxiety disorder | CPT/HCPCS: 99212 ==

== ENCOUNTER 2025-10-14 09:41 | Outpatient (REF) | payer MEDICARE, SELFPAY ==
[2025-10-14 10:05] LABS: MANUAL DIFF FLAG NO
--- OUTSIDE RECORDS SUMMARY | 2025-10-14 10:16 | XMS_ITS | Patient Health Record ---
Author Organization [facility] Address [address] [place] [address] [place] [address] Care Team Providers Care Scrap Separator Name Role Phone Radha Stoll MD Primary Care Provider Jung Blum Jr Unavailable Reason For Referral No Information Medications Medication SIG (Take, Route, Frequency, Duration) Notes Start Date End Date Status Vitamin D3 1000 UNIT Tablet TAKE ONE TABLET BY MOUTH EVERY DAY Oral; Duration: 30 Active Vitamin B-12 1000 MCG Tablet TAKE 1 TABLET DAILY Oral; Duration: 30 Active Folic Acid 1 MG Tablet TAKE 1 TABLET BY MOUTH ONCE A DAY Oral; Duration: 30 Active Lisinopril 40 MG Tablet TAKE ONE TABLET BY MOUTH EVERY DAY Oral; Duration: 30 Active Xyucs-5-sbey Ethyl Esters 1 GM Capsule TAKE 1 CAPSULE DAILY WITH A MEAL Oral; Duration: 30 Active Immunizations Vaccine Route Administration Date Status Comme nts Influenza Unknown 06/30/2020 Refused Social History Tobacco Use: Social History Observation Description Date Details (start date - stop date) Former Smoker NA - NA Social History Drugs/Alcohol: Social Info Question Answer Notes Alcohol Screen Did you have a drink containing alcohol in the past year? Yes How often did you have a drink containing alcohol in the past year? 2 to 4 times a month (2 points) How many drinks did you have on a typical day when you were drinking in the past year? 5 or 6 drinks (2 points) Points 4 Interpretation Positive Tobacco Use: Social Info Question Answer Notes Tobacco Use/Smoking Patient is a former smoker How long has it been since you last smoked? > 10 years Additional Details Category Social Info Options Details Miscellaneous: Marital status: Occupation: retired Section Notes: drinks beers sunday Problems Problem Type SNOMED Code ICD Code Onset Dates Problem Status W/U Status Risk Notes Problem Colon cancer screening (553096845) Colon cancer screening (Z12.11) Active confirmed Problem Pre-procedure evaluation check (759403340) Encounter for other preprocedural examination (Z01.818) Active confirmed Problem Gastroesophageal reflux disease with esophagitis (306530470) Gastroesophageal reflux disease with esophagitis (K21.0) Active confirmed Problem Hiatal hernia (57298641) Hiatal hernia (K44.9) Active confirmed Problem Throat clearing (33344162) Throat clearing (R68.89) Active confirmed Plan Of Treatment Future Test Test Name Order Date COLONOSCOPY 05/22/2018 Insurance Providers Payer Name Payer Address Payer Phone Subscriber Number Group Number Insured Name Patient Relationship to Insured Coverage Start Date Coverage End Date MEDICARE OF [place] [address] [facility] [place] [address] [id number] NIKOLAY DIEGO Self - patient is the insured MED[employer] ATTN CLAIMS [address] [place] [address] [id number] NIKOLAY DIEGO Self - patient is the insured Medical (General) History Medical History History ICD Code gastroesophageal reflux dise [facility], upper endoscopy February 2011 showing grade 1 esophagitis. hypertension elevated cholesterol elevated PSA post nasal drip colonoscopy 07/05/18, normal examination, ten-year followup recommended
[2025-10-14 10:54] LABS: Hematocrit 42.5 % (42.0-52.0); Hemoglobin 14.3 g/dl (14.0-18.0); Imm Gran Abs Auto 0.02 X10*3/uL (0.00-0.03); Imm Gran Pct Auto 0.5 % (0.0-0.4); Lymphocytes Absolute Auto 0.9 X10*3/uL (1.2-4.9); Mean Corpuscular HGB Conc 33.6 g/dl (31.0-36.0); Mean Corpuscular Hemoglobin 29.9 pg (27.0-33.0); Mean Corpuscular Volume 88.7 fL (80.0-98.0); NRBC Abs Auto 0.000 X10*3/uL (0.0-0.012); NRBC Pct Auto 0.0 /100WBC (0.0-0.2); Platelet Count 214 X10*3/uL (160-400); Red Blood Count 4.79 X10*6/uL (4.60-5.80); Reticulocytes Absolute 0.100 X10*6/uL (0.026-0.095); White Blood Count 4.3 X10*3/uL (4.8-10.8)
[2025-10-14 10:58] LABS: Hemoglobin A1C 150.4892 umol/L
[2025-10-14 11:29] LABS: Alanine Aminotransferase 23 U/L (0-40); Albumin Level 4.9 g/dL (3.5-5.0); Alkaline Phosphatase 84 U/L (39-117); Anion Gap 13 (12-20); Aspartate Amino Transferase 29 U/L (5-37); Blood Urea Nitrogen 18 mg/dL (9-16); Calcium 10.0 mg/dL (8.4-10.2); Carbon Dioxide 27 mmol/L (22-29); Chloride 105 mmol/L (96-108); Cholesterol 229 mg/dL (<200); Estimated Glomerular Filt Rate > 60; HDL Cholesterol 46 mg/dL (>40); Iron 114 mcg/dL (45-160); Percent Iron Saturation 44 % (15-50); Potassium 4.7 mmol/L (3.3-5.1); Sodium 140 mmol/L (135-145); Total Iron Binding Capacity 257 mcg/dL (228-428); Total Protein 7.5 g/dL (6.5-8.0); Triglycerides 160 mg/dL (<150); Unsaturated Iron Binding 143 ug/dL
[2025-10-14 11:39] LABS: Ferritin 218 ng/mL (20-250); Free T4 (Free Thyroxine) 0.86 ng/dL (0.71-1.85); Thyroid Stimulating Hormone 2.23 uIU/mL (0.32-4.0)
[2025-10-14 11:48] LABS: Folate 14.4 ng/mL (> or = 4.0); Vitamin B12 475 pg/mL (200-900)
== END 2025-10-14 09:42 | disposition home or self-care (01) ==
LOC: HO.LAB 09:41
PROVIDERS: PCP Internal Medicine; Visit Provider Internal Medicine
DX: R73.02 Impaired glucose tolerance (oral) (principal); E78.00 Pure hypercholesterolemia, unspecified; Z13.0 Encounter for screening for diseases of the blood and blood-forming organs and certain disorders involving the immune mechanism
CPT/HCPCS: 36415; 80053; 80061; 82607; 82728; 82746; 83036; 83540; 84439; 84443; 85025; 85045